=== PATIENT | female | born 1935 | race Caucasian/White ===

== ENCOUNTER → 2018-08-06 09:02 | Outpatient (CLI) | payer MEDICARE, SELFPAY ==
[2018-08-06 11:15] LABS: Occult Blood,Stool Negative (Negative)
[2018-08-08 07:02] LABS: C difficile Toxins AB, EIA Negative (Negative)
== END ==
PROVIDERS: PCP Internal Medicine; Visit Provider Internal Medicine
DX: R19.7 Diarrhea, unspecified (principal)
CPT/HCPCS: 82272; 87045; 87177; 87205; 87324; G0328

== ENCOUNTER → 2019-02-16 10:54 | Outpatient (CLI) | payer MEDICARE, SELFPAY ==
--- NOTE | 2019-02-16 11:00 | CA_ITS ---
APPROVED REPORT Right Lower Extremity Venous Study for DVT. Vascular Nurse: June Nguyen RVT Indications Lower Extremity Pain: Right Vein Imaging CFV (R): compressive, spontaneous, phasic, augmentation FEM (R): compressive, spontaneous, phasic, augmentation POP (R): compressive, spontaneous, phasic, augmentation PTV (R): Compressible GSV (R): Compressible Peroneals (R):Compressible GAS (R): Compressible Findings Study suggests no evidence of DVT right lower extremity. Study suggests no evidence of SVT right lower extremity. Conclusion Study suggests no evidence of DVT right lower extremity. Study suggests no evidence of SVT right lower extremity. Critical Notification Physician Notified Date: 02/16/2019 Time: 11:26 Physician Name: Dr Lacey Electronically signed by : Bacilio Rachel MD 02/18/2019 14:12:41
--- NOTE | 2019-02-16 11:50 | XR_ITS ---
PROCEDURE: XR LUMBAR SPINE MIN 4V CLINICAL INDICATION: LUMBAGO W/RT SCIATICA Low back with right-sided sciatica COMPARISON: LS5 LUMBAR SPINE 5 VIEWS from 10/30/2016 FINDINGS: There is mild lumbar scoliosis convex. This measures 16 degrees previously measuring 14 degrees. There is mild degenerative disc disease at from L2-S1 worse at the L4-5 level. There is mild anterolisthesis of L4 of approximately mm. No acute fracture or dislocation. No lytic or blastic change. Generalized vascular calcification is present IMPRESSION: Scoliosis with multilevel lumbar spondylosis. The degenerative disc disease at L4-5 appears slightly worse. Dictated by: Bacilio Rachel MD 02/16/2019 13:05 Electronically signed by Bcailio Rachel MD in [place] 02/16/2019 13:05
== END ==
PROVIDERS: PCP Internal Medicine; Visit Provider Internal Medicine
DX: M79.604 Pain in right leg (principal); M54.41 Lumbago with sciatica, right side
CPT/HCPCS: 72110; 93971

== ENCOUNTER 2019-02-23 08:44 | Outpatient (RCR) | payer MEDICARE, SELFPAY ==
--- NOTE | 2019-02-23 09:43 | HMH.PTOPEV ---
PT Outpatient Evaluation Rehab PT Outpatient Evaluation Start: 02/23/19 08:55 Freq: Status: Active Protocol: Document 02/23/19 09:00 ROSSYBIANCA (Rec: 02/23/19 09:43 AMILCARVALERIE [id number]) Electronically Signed By Petros Raymond PT 02/23/19 09:00 Outpatient Therapy Subjective History Subjective History This is the initial Physical Therapy evaluation for Denise Dent. Pt is an 83 y/o female referred to PT for c/o R sided Leg and Low back pain. Pt reports pain began insidiously ~ 5 weeks ago. Pt thinks maybe pulling and assisting irritated her back. Pt reprots that pain has gradually increased over the last few weeks. Pt reports her pain is in R calf mostly but does have a few occaisions of whole posterior leg pain. Pt rperots she is diabetic and last A1C ~ 2 months ago was 7.8 Chief Complaint Pain,Stiff Symptom Type Ache,Throb,Dull,Stabbing, Burning Symptoms Relieved By Rest/Positioning Symptoms Aggravated By Standing,Physical Activity, Walking Prior Functional Limitations None Current Functional Limitations Housework,Standing,Recreation Activity,Walking Symptom Description Intermittent Level of pain today (0-10) 0 Pain scale - at its best (0-10) 0 Pain scale - at its worst (0-10) 9 Lumbopelvic Eval Posture Thoracic Spine Posture Standing Position Increased Kyphosis Lumbar Spine Posture Standing Position Flattened Assistive device Assistive Devices None / NA Range of Motion Lumbar Spine ROM Reason Not Measured Within Functional Limits DTR Rt Patellar 0 Lt Patellar 0 Special Tests Forward Bending Test- Sitting Positive Right Sciatic Nerve Tension Test Negative Right Unilateral Straight Leg Raise (Lasegue) Negative Right Test Lumbar [place] Distraction Test/Manual Negative Traction Outpatient Therapy Assessment Impairments Problems/Impairmments Impaired Walking,Impaired Standing,Impaired Household Care,Impaired Recreational Activities,Subjective C/O Pain ,Impaired Self Care/Self
== END 2019-02-23 08:50 | disposition home or self-care (01) ==
LOC: PT 08:44
PROVIDERS: PCP Internal Medicine; Visit Provider Internal Medicine
DX: M54.41 Lumbago with sciatica, right side (principal)
CPT/HCPCS: 97163

== ENCOUNTER 2020-05-08 16:07 | Emergency (ER) | payer MEDICARE, SELFPAY ==
[2020-05-08 16:24] LABS: Apearance,Urine Cloudy (Clear); Color,Urine Amber (Yellow)
[2020-05-08 16:25] LABS: PH,Urine 5.5 (5.0-8.5); Protein,Urine 3+ (Negative); Specific Gravity, Urine 1.015 (1.005-1.030)
[2020-05-08 16:26] LABS: Glucose,Urine (UA) 4+ (Negative); Ketones,Urine Negative (Negative)
[2020-05-08 16:27] LABS: Bilirubin,Urine 1+ (Negative); Blood, Urine 3+ (Negative); UTC Leukocyte Esterase,Urine 1+ (Negative); UTC Nitrate,Urine Negative (Negative); Urobilinogen,Urine 0.2 EU/dl (0.2)
[2020-05-08 16:31] VITALS: BP 169/83; PULSE 88; RESP 16; TEMP 36.6; O2SAT 92; BMI 22.9
[2020-05-08 16:43] LABS: POC Glucose,Bedside 238 (70-110)
--- NOTE | 2020-05-08 16:56 | HMH.EDUTC ---
[facility] Clinical Impression: UTI (urinary tract infection) Qualifiers: Urinary tract infection type: site unspecified Hematuria presence: with hematuria Qualified Code(s): N39.0 - Urinary tract infection, site not specified Disposition: Home, Self-Care Condition on Discharge: Good Instructions: Urinary Tract Infection Additional Instructions: Drink plenty of fluids. Take tylenol for pain or fever. Take the medications as directed. Follow up with your regular doctor. GO TO THE ER FOR ANY WORSENING SYMPTOMS The pyridium will make your urine turn orange, this is an expected side effect. It will stain your clothes if it comes into contact with them. Prescriptions: Sulfamethoxazole/Trimethoprim [Bactrim DS tablet] 1 each PO BID 7 Days #14 tab Transmission Status: Received by [facility] Fluconazole [Diflucan 150mg tab] 150 mg PO ONCE #1 tab Transmission Status: Received by [facility] Phenazopyridine HCl [Pyridium 200mg Tablet] 200 pow PO TID #6 tab Transmission Status: Received by [facility] Referrals: Ricky Lacey [Primary Care Provider] - Time of Disposition: 17:11 Medical Decision Making - Medical Records Medical records reviewed: No: I reviewed the patient's medical records. - Yefri Inquiry Pt receiving controlled substance: No Vital Signs: 05/08/20 16:31 05/08/20 17:18 Temperature 97.9 F 98.1 F Temperature Source Tympanic Pulse Rate 82 Pulse Rate [Right] 88 Respiratory Rate 16 16 Blood Pressure 154/80 H Blood Pressure [Right Arm] 169/83 H Blood Pressure Mean [Right Arm] 111 Blood Pressure Source [Right Arm] Automatic Cuff Blood Pressure Position [Right Arm] Sitting 02 Sat by Pulse Oximetry 92 L Oxygen Delivery Method Room Air - Lab Data Lab results reviewed: Yes: I reviewed the patient's lab results. Lab Results 05/08/20 16:21: Urine Color Tessie, Urine Appearance Cloudy, Urine pH 5.5, Ur Specific [place] 1.015, Urine Protein 3+, Urine Glucose (UA) 4+, Urine Ketones Negative, Urine Blood 3+, Urine Nitrate Negative, Urine Bilirubin 1+ A, Urine Urobilinogen 0.2, Ur Leukocyte Esterase 1+ A 05/08/20 16:32: POC Glucose 238 H Orders (Tests/Meds): ED MEDICATIONS Discontinued Medications Generic Name Dose Route Start Last Admin Trade Name Beryl PRN Reason Stop Dose Admin Trimethoprim/Sulfamethoxazole 1 each 05/08/20 17:11 05/08/20 17:13 Sulfa/Trimethoprim 1 Tablet PO 05/08/20 17:12 1 each ONCE ONE Administration Protocol ORDERS Category Date Time Status Urine Culture Routine Micro 05/08/20 16:20 [place] [facility] [place] - General Stated complaint: UTI Time Seen by Provider: 05/08/20 16:56 Mode of Arrival: Ambulatory Source of Information: Patient Limitations: No Limitations Description of Symptoms (Recalled from Triage Doc. by RN): pt states she is having burning with urination, pain and bleeding vaginally. HEENT Symptoms (Recalled from RN notes): No Resp Symptoms (Recalled from RN notes): No Skin Symptoms (Recalled from RN notes): No MS Symptoms (Recalled from RN notes): No Functional Status (Recalled from RN notes): na - History of Present Illness Provider Complaint: She states that for the past 2 days she has been having urinary frequency and dysuria. She has also noted some bleeding when she urinates. She is not sure if the bleeding is vaginal or urinary, but she has only noticed it when she was urinating. - Related Data Previous Rx's Medication Instructions Recorded Fluconazole [Diflucan 150mg tab] 150 mg PO ONCE #1 tab 05/08/20 Phenazopyridine HCl [Pyridium 200 pow PO TID #6 tab 05/08/20 200mg Tablet] Sulfamethoxazole/Trimethoprim 1 each PO BID 7 Days #14 tab 05/08/20 [Bactrim DS tablet] Allergies Allergy/AdvReac Type Severity Reaction Status Date / Time Penicillins Allergy Unknown Verified 05/08/20 16:35 propoxyphene Allergy Unknown Verified
[2020-05-08 17:18] VITALS: BP 154/80; PULSE 82; RESP 16; TEMP 36.7
== END 2020-05-08 17:19 | disposition home or self-care (01) ==
PROVIDERS: Emergency Provider Nurse Practitioner Family; PCP Internal Medicine
DX: N30.00 Acute cystitis without hematuria (principal); E11.9 Type 2 diabetes mellitus without complications; Z88.0 Allergy status to penicillin
CPT/HCPCS: G0463; 81003; 82962; 87086; 99202

== ENCOUNTER → 2020-12-09 10:01 | Outpatient (CLI) | payer MEDICARE, SELFPAY ==
[2020-12-09 11:09] LABS: Hemoglobin A1C 8.5 % (4.0-6.0)
== END ==
PROVIDERS: Visit Provider Internal Medicine
DX: E11.42 Type 2 diabetes mellitus with diabetic polyneuropathy (principal)
CPT/HCPCS: 36415; 83036

== ENCOUNTER → 2021-01-09 13:28 | Outpatient (CLI) | payer MEDICARE, SELFPAY ==
[2021-01-09 13:57] LABS: Basophils # 0.1 K/mm3 (0-0.2); Basophils % 1.4 % (0.1-2.0); Eosinophils # 0.3 K/mm3 (0.0-0.4); Eosinophils % 3.7 % (0.1-12.0); Hematocrit 49.7 % (37.0-47.0); Hemoglobin 15.7 g/dL (12.2-16.2); Lymphocytes # 2.5 K/mm3 (0.7-4.5); Lymphocytes % 33.9 % (10-50); Mean Corpuscular HGB Conc 31.6 g/dL (31.8-35.4); Mean Corpuscular Hemoglobin 32.4 pg (27.0-31.2); Mean Corpuscular Volume 102.6 fl (81-99); Mean Platelet Volume 7.3 fl (7.4-10.4); Monocytes # 0.5 K/mm3 (0.1-1.0); Monocytes % 6.2 % (1.7-9.3); Neutrophils # 4.1 K/mm3 (1.8-7.8); Neutrophils % 54.7 % (37.0-80.0); Platelet Count 350 K/mm3 (142-424); Red Blood Count 4.84 M/mm3 (4.20-5.40); Red Cell Distribution Width 12.4 % (11.5-17.5); White Blood Count 7.5 K/mm3 (4.8-10.8)
[2021-01-09 14:49] LABS: Alanine Aminotransferase 19 U/L (12-78); Albumin Level 3.8 g/dl (3.5-5.0); Albumin/Globulin Ratio 1.6 (1.1-1.8); Alkaline Phosphatase 94 U/L (38-126); Anion Gap 14.5 mEq/L (5-15); Aspartate Amino Transferase 23 U/L (14-36); Bilirubin,Total 0.5 mg/dl (0.2-1.3); Blood Urea Nitrogen 13 mg/dl (7-17); Calcium 9.6 mg/dl (8.4-10.2); Carbon Dioxide 29 mmol/L (22.0-30.0); Chloride 91 mmol/L (98-107); Estimated Glomerular Filt Rate 80 ml/min (>60); GFR (African American) 97 ML/MIN (>60); Globulin 2.4 g/dL (1.3-3.2); Potassium 4.5 mmoL/L (3.5-5.1); Sodium 130 mmol/L (136-145); Total Protein,Serum 6.2 g/dl (6.3-8.2)
[2021-01-09 15:20] LABS: Thyroid Stimulating Hormone 2.39 uIU/mL (0.465-4.68)
[2021-01-09 15:29] LABS: Glucose 418 mg/dl (74-100)
[2021-01-09 15:55] LABS: Vitamin B12 363 pg/mL (239-931)
[2021-01-09 17:10] LABS: Folate > 20.00 ng/mL
[2021-01-09 17:20] LABS: Ferritin 209 ng/ml (11.1-264)
== END ==
PROVIDERS: Visit Provider Nurse Practitioner Family
DX: R25.2 Cramp and spasm (principal); R41.3 Other amnesia; R42 Dizziness and giddiness; W19.XXXA Unspecified fall, initial encounter; E83.10 Disorder of iron metabolism, unspecified
CPT/HCPCS: 36415; 80053; 82607; 82728; 82746; 84443; 85025

== ENCOUNTER 2021-01-09 18:40 | Emergency (ER) | payer MEDICARE, SELFPAY ==
[2021-01-09 19:04] VITALS: BP 158/58; PULSE 111; RESP 18; TEMP 37.2; O2SAT 99; BMI 20.5
[2021-01-09 19:30] VITALS: BP 136/66; PULSE 108; O2SAT 97
[2021-01-09 19:33] LABS: POC Glucose,Bedside 234 (70-110)
[2021-01-09 20:00] VITALS: BP 144/60; PULSE 70; O2SAT 96
[2021-01-09 20:23] VITALS: BP 144/60; PULSE 73; RESP 16; TEMP 36.8; O2SAT 99
--- NOTE | 2021-01-26 11:04 | HMH.EDGENADL ---
ED Disposition Clinical Impression: Hyperglycemia Disposition: Home, Self-Care Condition on Discharge: Good Instructions: DI for Hyperglycemia -- Adult Referrals: Lida Pack [Primary Care Provider] - - Critical Care Critical Care Time: No Attestation: On 01/09/21, the high probability of a clinically significant, sudden or life threatening deterioration of the following system(s) required my full and direct attention, intervention and personal management. The time I documented below is in addition to time spent performing reported procedures but includes the following listed in this critical care notation. Medical Decision Making - Medical Records Medical records reviewed: Yes: I reviewed the patient's medical records. - Yefri Inquiry Pt receiving controlled substance: No Vital Signs: 01/09/21 19:04 01/09/21 19:30 01/09/21 20:00 Temperature 98.9 F Temperature Source Oral Pulse Rate 108 H 70 Pulse Rate [Apical] 111 H Respiratory Rate 18 Blood Pressure 136/66 144/60 H Blood Pressure [Right Arm] 158/58 H Blood Pressure Mean 89 88 Blood Pressure Mean [Right Arm] 91 Blood Pressure Source Blood Pressure Source [Right Arm] Automatic Cuff Blood Pressure Position Blood Pressure Position [Right Arm] Sitting 02 Sat by Pulse Oximetry 99 97 96 Oxygen Delivery Method Room Air 01/09/21 20:23 Temperature 98.3 F Temperature Source Oral Pulse Rate 73 Pulse Rate [Apical] Respiratory Rate 16 Blood Pressure 144/60 H Blood Pressure [Right Arm] Blood Pressure Mean Blood Pressure Mean [Right Arm] Blood Pressure Source Automatic Cuff Blood Pressure Source [Right Arm] Blood Pressure Position Supine Blood Pressure Position [Right Arm] 02 Sat by Pulse Oximetry Oxygen Delivery Method Room Air - Lab Data Lab Results 01/09/21 19:26: POC Glucose 234 H Medical Decision Narrative: 85-year-old female who was referred here from neurology clinic due to hyponatremia. Patient labs were reviewed, while patient is hyperglycemic, and warrants tighter control for her diabetes, as evidenced by her HbA1c, patient hyponatremia on the lab draw is consistent with normal levels after correction due to the hyperglycemia. She does not have any acute symptoms at this time. Was discussed with the patient and she was discharged in a stable condition with instruction to follow-up with her PCP regarding her diabetic management. General Adult HPI - General Chief complaint: Recheck/Abnormal Lab/Rx Stated complaint: unstable labs Time Seen by Provider: 01/09/21 19:45 Mode of Arrival: Ambulatory Limitations: No Limitations Description of Symptoms (Recalled from ER Triage Doc. by RN): patient went to pcp today to follow up for bilateral leg cramps that she has been experiencing. States that they stalin labs and her daughter called her this evening and told her that her labs were abnormal and to get ready to go to the emergency room. Patient states that she is not having any complaints. No pain or issues. States she feels fine. - History of Present Illness HPI narrative: She is a 85-year-old female who presented to the emergency department due to hyperglycemia as well as hyponatremia seen by her neurologist today and I called her back regarding results due to concern for her low sodium levels. Patient is well-appearing, states that she feels perfectly fine. She does have chronic bilateral lower extremity neuropathy and muscle aching for which she was seeing the neurologist for. She is currently denying headache, chest pain, shortness of air, stomachaches, nausea, vomiting, any changes in symptoms. - Related Data Home Medications Medication Instructions Recorded Confirmed ascorbic acid (vitamin C) 500 mg See Rx Instructions PO .COMPLEX 01/09/21 01/09/21 capsule calcium carbonate 215 mg calcium 215 mg PO DAILY tab 01/09/21 01/09/21 (500 mg) chewable tablet cholecalciferol (vitam
== END 2021-01-09 20:23 | disposition home or self-care (01) ==
PROVIDERS: Emergency Provider Emergency Medicine; PCP Family Medicine
DX: E11.65 Type 2 diabetes mellitus with hyperglycemia (principal); Z79.4 Long term (current) use of insulin; Z79.84 Long term (current) use of oral hypoglycemic drugs; E87.1 Hypo-osmolality and hyponatremia
CPT/HCPCS: 36415; 80053; 82607; 82728; 82746; 82962; 84443; 85025; 99281

== ENCOUNTER → 2021-01-27 17:02 | Outpatient (CLI) | payer MEDICARE, SELFPAY ==
--- NOTE | 2021-01-27 17:02 | MR_ITS ---
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 FINDINGS: No midline shift, mass effect, intracranial hemorrhage, or hydrocephalus is evident. The cerebellopontine angles an unremarkable appearance. There is a 7 mm area of increased T2 signal in the medial aspect the right cerebellum superiorly. This shows increased T2 signal centrally with a small peripheral rim of decreased T2 signal. This does not demonstrate restricted diffusion and shows central decreased T1 signal. This may represent a small old infarction or an old area of hemorrhage. There is no surrounding edema. There is generalized atrophy with periventricular and subcortical T2 white matter hyperintensities. No acute infarction evident. The pituitary, optic chiasm, corpus callosum, and craniocervical junction have an unremarkable appearance. No mastoid effusion or sinus air-fluid level. IMPRESSION: 1. Right superior cerebellar lesion as described above. This may represent an old small area of infarction or old area of hemorrhage. There is no mass effect or edema. Differential diagnosis would include a lesion such as a metastatic focus. Follow-up enhanced exam is suggested unless there are old exams available for comparison. There are no old exams available at this institution. If follow-up exam is performed, suggest thinner section images through this region without and with gadolinium enhancement. 2. Atrophy with chronic ischemic changes. Dictated by: Bacilio Rachel MD 01/28/2021 08:15 Bacilio Rachel MD in [place] 01/28/2021 08:15
== END ==
PROVIDERS: PCP Internal Medicine; Visit Provider Nurse Practitioner Family
DX: R25.2 Cramp and spasm (principal); R41.3 Other amnesia; R42 Dizziness and giddiness; W19.XXXA Unspecified fall, initial encounter
CPT/HCPCS: 70551

== ENCOUNTER → 2021-02-08 07:48 | Outpatient (CLI) | payer MEDICARE, SELFPAY ==
[2021-02-08 08:15] LABS: Anion Gap 13.1 mEq/L (5-15); Blood Urea Nitrogen 13 mg/dl (7-17); Calcium 9.2 mg/dl (8.4-10.2); Carbon Dioxide 29 mmol/L (22.0-30.0); Chloride 89 mmol/L (98-107); Creatine Kinase 25 U/L (30-135); Estimated Glomerular Filt Rate 80 ml/min (>60); GFR (African American) 97 ML/MIN (>60); Potassium 4.1 mmoL/L (3.5-5.1); Sodium 127 mmol/L (136-145)
--- NOTE | 2021-02-08 08:35 | MR_ITS ---
PROCEDURE: MR LUMBAR SPINE WO CON CLINICAL INDICATION: back pain with radiculopathy, eval for myelopathy COMPARISON: CR XR LUMBAR SPINE MIN 4V from 02/16/2019 MR MR HEAD/BRAIN WO/W CON from 02/08/2021 TECHNIQUE: Standard multiplanar multiecho sequences are performed without contrast. 3-D MIP and myelographic images are also rendered and reviewed FINDINGS: There is lumbar scoliosis convex right. This measures approximately 21 degrees. Multilevel lumbar spondylosis. L1-L2: Mild concentric bulging disc with facet and ligamentum hypertrophy with mild left lateral recess narrowing. L2-L3: Degenerative disc disease with concentric bulging disc with facet and ligamentum hypertrophic change. The facet hypertrophy is more prominent on the left causing left-sided lateral recess narrowing slightly displacing the left L3 nerve root anteriorly and abutting on the L4 nerve root is well. There is mild left-sided foraminal narrowing. L3-L4: Mild concentric bulging disc with mild facet and ligamentum hypertrophy with mild left-sided foraminal narrowing. L4-5: Degenerative disc disease with concentric bulging disc with facet and ligamentum hypertrophic change. 3 mm anterolisthesis of L4 on L5. There is moderate bilateral lateral recess narrowing slightly greater on the right with moderate right foraminal narrowing and mild left foraminal narrowing. Minimal left paracentral disc protrusion. L5-S1: Mild concentric bulging disc with facet and ligamentum hypertrophic change with mild right-sided foraminal narrowing. There is heterogeneous intensity of the vertebral bodies suggesting partial red marrow replacement. Small lipoma is present along the superior aspect of L1. IMPRESSION: Lumbar scoliosis convex right with multilevel lumbar spondylosis with bulging discs, facet and ligamentum hypertrophy with lateral recess and foraminal narrowing. Please see above for detailed description at each level. No extruded herniated disc or bony canal stenosis. Dictated by: Bacilio Rachel MD 02/09/2021 13:17 Bacilio Rachel MD in [place] 02/09/2021 13:17
--- NOTE | 2021-02-08 08:35 | MR_ITS ---
PROCEDURE: MR HEAD/BRAIN WO/W CON CLINICAL INDICATION: abnormal brain mri without Evaluate brain lesion COMPARISON: MR MR HEAD/BRAIN WO CON from 01/27/2021 TECHNIQUE: Routine multiplanar multi echo sequences are performed without gadolinium enhancement. FINDINGS: Pre and post images are obtained with thin-section images through the cerebellum. There is a prominent developmental venous anomaly within the right cerebellar hemisphere. The pre and post enhanced coronal images very well demonstrate a caput medusa sign in the mid and superior aspect of the right cerebellar hemisphere with up prominent draining vein projecting inferiorly to the inferior surface of the right cerebellum medially. This vein measures up to 3 mm transverse and 1.7 cm in length. The previously noted abnormal area of signal intensity is not within the DVA but is along the superior and medial aspect of the small venous branches. This area does not demonstrate contrast enhancement. This region measures approximately 8 x 8 mm with a peripheral rim of decreased T1 and T2 signal. The central area is isointense on T1 and slightly hyperintense on T2. This may represent a previous area of hemorrhage with hemosiderin causing the low thin peripheral T2 signal. Aside from the DVA, no other areas of enhancement are apparent. Scattered periventricular and subcortical T2 white matter hyperintensities are present consistent with ischemic gliotic microvascular changes. No evidence of acute infarction. No midline shift or mass effect. IMPRESSION: 1. Prominent right cerebellar developmental venous anomaly. 2. Abnormal signal intensity along the superior and medial aspect of the small draining veins consistent with an old area of hemorrhage Dictated by: Bacilio Rachel MD 02/10/2021 08:50 Bacilio Rachel MD in [place] 02/10/2021 08:50
[2021-02-08 09:06] LABS: Glucose 425 mg/dl (74-100)
[2021-02-09 13:11] LABS: Aldolase 2.7 U/L (3.3-10.3)
== END ==
PROVIDERS: PCP Internal Medicine; Visit Provider Nurse Practitioner Family
DX: E87.1 Hypo-osmolality and hyponatremia (principal); G89.29 Other chronic pain; M54.41 Lumbago with sciatica, right side; M54.42 Lumbago with sciatica, left side; M79.604 Pain in right leg; M79.605 Pain in left leg; R25.2 Cramp and spasm; R41.3 Other amnesia; R42 Dizziness and giddiness; R90.89 Other abnormal findings on diagnostic imaging of central nervous system; W19.XXXA Unspecified fall, initial encounter
CPT/HCPCS: 36415; 70553; 72148; 76376; 80048; 82085; 82550; A9576

== ENCOUNTER 2021-02-25 09:19 | Emergency (ER) | payer MEDICARE, SELFPAY ==
[2021-02-25 09:40] VITALS: BP 149/61; PULSE 70; RESP 18; TEMP 36.9; O2SAT 98; BMI 21.1
--- NOTE | 2021-02-25 09:58 | HMH.EDUTC ---
[facility] [place] Impression: UTI (urinary tract infection) Qualifiers: Urinary tract infection type: site unspecified Hematuria presence: with hematuria Qualified Code(s): N39.0 - Urinary tract infection, site not specified Disposition: Home, Self-Care Condition on Discharge: Good Instructions: Urinary Tract Infection, DI for Urinary Tract Infection (UTI), Phenazopyridine Additional Instructions: Drink plenty of fluids. Take tylenol or ibuprofen for pain or fever. Take the medications as directed. Follow up with your regular doctor. GO TO THE ER FOR ANY WORSENING SYMPTOMS The pyridium will make your urine turn orange, this is an expected side effect. It will stain your clothes if it comes into contact with them. Prescriptions: Sulfamethoxazole/Trimethoprim [Bactrim DS tablet] 1 each PO BID 7 Days #14 tab Transmission Status: Sent to [id number] Phenazopyridine HCl [Pyridium 200mg Tablet] 200 pow PO TID #6 tab Transmission Status: Sent to [facility] Referrals: Ricky Lacey [Primary Care Provider] - Time of Disposition: 10:07 Medical Decision Making - Medical Records Medical records reviewed: No: I reviewed the patient's medical records. - Yefri Inquiry Pt receiving controlled substance: No Vital Signs: 02/25/21 09:40 Temperature 98.4 F Temperature Source Oral Pulse Rate [Left] 70 Respiratory Rate 18 Blood Pressure [Right Arm] 149/61 H Blood Pressure Mean [Right Arm] 90 02 Sat by Pulse Oximetry 98 - Lab Data Lab results reviewed: Yes: I reviewed the patient's lab results. Lab Results 02/25/21 10:01: Urine Color Dark yellow, Urine Appearance Cloudy, Urine pH 5.5, Ur Specific [place] 1.015, Urine Protein 1+, Urine Glucose (UA) 4+, Urine Ketones Large, Urine Blood 4+, Urine Nitrate Negative, Urine Bilirubin Negative, Urine Urobilinogen 0.2, Ur Leukocyte Esterase Trace Orders (Tests/Meds): ORDERS Category Date Time Status Urine Culture Stat Micro 02/25/21 10:01 [place] [facility] - General Stated complaint: uti symptoms Time Seen by Provider: 02/25/21 09:58 Mode of Arrival: Ambulatory Source of Information: Patient Limitations: No Limitations HEENT Symptoms (Recalled from RN notes): No Resp Symptoms (Recalled from RN notes): No Skin Symptoms (Recalled from RN notes): No MS Symptoms (Recalled from RN notes): No Functional Status (Recalled from RN notes): wnl - History of Present Illness Provider Complaint: She states that since yesterday at 0400 am, she has had urinary frequency and dysuria. She denies any fever or chills. She has no shortness of breath or chest discomfort. - Related Data Home Medications Medication Instructions Recorded Confirmed ascorbic acid (vitamin C) 500 mg See Rx Instructions PO .COMPLEX 01/09/21 01/30/21 capsule calcium carbonate 215 mg calcium 215 mg PO DAILY tab 01/09/21 01/30/21 (500 mg) chewable tablet cholecalciferol (vitamin D3) 25 25 mcg PO DAILY 01/09/21 01/30/21 mcg (1,000 unit) capsule empagliflozin 10 mg tablet 5 mg PO DAILY tab 01/09/21 01/30/21 famotidine 20 mg tablet 20 mg PO HS tab 01/09/21 01/30/21 ferrous sulfate 325 mg (65 mg 325 mg PO BID 01/09/21 01/30/21 iron) tablet loperamide 2 mg capsule 2 mg PO PRN cap 01/09/21 01/30/21 metformin 1,000 mg tablet 1,000 mg PO BID tab 01/09/21 01/30/21 multivitamin 1 tab PO DAILY 01/09/21 01/30/21 pioglitazone 15 mg tablet 15 mg PO DAILY tab 01/09/21 01/30/21 pravastatin 40 mg tablet 40 mg PO HS tab 01/09/21 01/30/21 trazodone 50 mg tablet 50 mg PO HS tab 01/09/21 01/30/21 gabapentin 300 mg capsule 600 mg PO HS cap 01/30/21 01/30/21 insulin glargine 100 unit/mL (3 10 unit SQ DAILY ml 01/30/21 01/30/21 mL) subcutaneous pen lisinopril 20 mg tablet 20 mg PO DAILY 01/30/21 01/30/21 Previous Rx's Medication Instructions Recorded Fluconazole [Diflucan 150mg tab] 150 mg PO ONCE #1 tab 05/08/20 Phenazopyridine HCl [Pyrid
[2021-02-25 10:02] LABS: Apearance,Urine Cloudy (Clear); Color,Urine Dark Yellow (Yellow); PH,Urine 5.5 (5.0-8.5); Protein,Urine 1+ (Negative); Specific Gravity, Urine 1.015 (1.005-1.030)
[2021-02-25 10:03] LABS: Bilirubin,Urine Negative (Negative); Blood, Urine 4+ (Negative); Glucose,Urine (UA) 4+ (Negative); Ketones,Urine Large (Negative); UTC Leukocyte Esterase,Urine Trace (Negative); UTC Nitrate,Urine Negative (Negative); Urobilinogen,Urine 0.2 EU/dl (0.2)
[2021-02-25 10:09] VITALS: BP 149/61; PULSE 70; RESP 18; TEMP 36.9
== END 2021-02-25 10:21 | disposition home or self-care (01) ==
PROVIDERS: Emergency Provider Nurse Practitioner Family; PCP Internal Medicine
DX: N30.00 Acute cystitis without hematuria (principal); E11.9 Type 2 diabetes mellitus without complications; Z88.0 Allergy status to penicillin
CPT/HCPCS: G0463; 81003; 87086; 87088; 87186; 99202

== ENCOUNTER → 2021-02-28 09:56 | Outpatient (POV) | payer MEDICARE, SELFPAY ==
[2021-02-28 10:32] VITALS: BP 166/86; PULSE 69; RESP 18; O2SAT 96; BMI 21.1
--- NOTE | 2021-02-28 10:38 | HMH.PMCON ---
Assessment and Plan (1) Degenerative disc disease, lumbar Status: Acute Category: Medical Code(s): M51.36 - Other intervertebral disc degeneration, lumbar region (2) Lumbar radiculopathy Status: Acute Category: Medical Code(s): M54.16 - Radiculopathy, lumbar region (3) Facet arthropathy Status: Acute Category: Medical Code(s): M47.819 - Spondylosis without myelopathy or radiculopathy, site unspecified (4) Bulging disc Status: Acute Category: Medical - Assessment and plan all Dx Assessment and Plan for all problems:: PROCEDURE: MR LUMBAR SPINE WO CON CLINICAL INDICATION: back pain with radiculopathy, eval for myelopathy COMPARISON: CR XR LUMBAR SPINE MIN 4V from 02/16/2019 MR MR HEAD/BRAIN WO/W CON from 02/08/2021 TECHNIQUE: Standard multiplanar multiecho sequences are performed without contrast. 3-D MIP and myelographic images are also rendered and reviewed FINDINGS: There is lumbar scoliosis convex right. This measures approximately 21 degrees. Multilevel lumbar spondylosis. L1-L2: Mild concentric bulging disc with facet and ligamentum hypertrophy with mild left lateral recess narrowing. L2-L3: Degenerative disc disease with concentric bulging disc with facet and ligamentum hypertrophic change. The facet hypertrophy is more prominent on the left causing left-sided lateral recess narrowing slightly displacing the left L3 nerve root anteriorly and abutting on the L4 nerve root is well. There is mild left-sided foraminal narrowing. L3-L4: Mild concentric bulging disc with mild facet and ligamentum hypertrophy with mild left-sided foraminal narrowing. L4-5: Degenerative disc disease with concentric bulging disc with facet and ligamentum hypertrophic change. 3 mm anterolisthesis of L4 on L5. There is moderate bilateral lateral recess narrowing slightly greater on the right with moderate right foraminal narrowing and mild left foraminal narrowing. Minimal left paracentral disc protrusion. L5-S1: Mild concentric bulging disc with facet and ligamentum hypertrophic change with mild right-sided foraminal narrowing. There is heterogeneous intensity of the vertebral bodies suggesting partial red marrow replacement. Small lipoma is present along the superior aspect of L1. IMPRESSION: Lumbar scoliosis convex right with multilevel lumbar spondylosis with bulging discs, facet and ligamentum hypertrophy with lateral recess and foraminal narrowing. Please see above for detailed description at each level. No extruded herniated disc or bony canal stenosis. Dictated by: Bacilio Rachel MD 02/09/2021 13:17 Bacilio Rachel MD in [place] 02/09/2021 13:17 Patient has been having worsening low back pain that started 6 months ago. Patient has now new radiating pain to her right hip, leg, and foot from her low back. Patient has tried and failed conservative therapy such as oral medication and at home exercises for greater than 6 weeks. We will schedule the patient for a lumbar epidural steroid injection at the level of L4-L5. Risks and benefits of the procedure have been explained to the patient. Patient is currently not on any blood thinners however she is diabetic and will need to have her sugar monitored after the procedure. Patient has been instructed to contact the clinic with any concerns before the next appointment. Dr. Baker has reviewed this note and agrees with this plan of care. This note was dictated using voice recognition software and make contain errors or omissions. HPI - Data of Consult Patient: new to practice Consult date: 02/28/21 Requesting Physician: Kalina Coffman APRN - Consult Narrative Reason for consult: Chronic Low Back Pain History of present illness: Ms. Dent is a 85 year old female who presents today as a new patient. Patient is referred by Kalina Coffman APRN for worsening low back pain. Patient states that she has had low back pain for greate
== END ==
PROVIDERS: Visit Provider Clinical Nurse Specialist Family Health
DX: M51.16 Intervertebral disc disorders with radiculopathy, lumbar region (principal); M47.899 Other spondylosis, site unspecified
CPT/HCPCS: 99202; G0463

== ENCOUNTER → 2021-03-07 14:21 | Outpatient (CLI) | payer MEDICARE, SELFPAY ==
[2021-03-07 14:46] LABS: Basophils # 0.1 K/mm3 (0-0.2); Basophils % 0.9 % (0.1-2.0); Eosinophils # 0.2 K/mm3 (0.0-0.4); Hematocrit 40.1 % (37.0-47.0); Hemoglobin 13.6 g/dL (12.2-16.2); Lymphocytes # 1.8 K/mm3 (0.7-4.5); Lymphocytes % 32.6 % (10-50); Mean Corpuscular HGB Conc 33.9 g/dL (31.8-35.4); Mean Corpuscular Hemoglobin 32.8 pg (27.0-31.2); Mean Corpuscular Volume 96.7 fl (81-99); Mean Platelet Volume 7.9 fl (7.4-10.4); Monocytes # 0.4 K/mm3 (0.1-1.0); Monocytes % 7.7 % (1.7-9.3); Neutrophils # 3.2 K/mm3 (1.8-7.8); Neutrophils % 55.8 % (37.0-80.0); Platelet Count 418 K/mm3 (142-424); Red Blood Count 4.15 M/mm3 (4.20-5.40); Red Cell Distribution Width 13.1 % (11.5-17.5); White Blood Count 5.6 K/mm3 (4.8-10.8)
[2021-03-07 15:57] LABS: Chloride 92 mmol/L (98-107); Potassium 4.7 mmoL/L (3.5-5.1); Sodium 130 mmol/L (136-145)
[2021-03-07 16:00] LABS: Alanine Aminotransferase 14 U/L (12-78); Albumin Level 4.3 g/dl (3.5-5.0); Alkaline Phosphatase 90 U/L (38-126); Anion Gap 14.7 mEq/L (5-15); Aspartate Amino Transferase 27 U/L (14-36); Bilirubin,Total 0.7 mg/dl (0.2-1.3); Carbon Dioxide 28 mmol/L (22.0-30.0); Cholesterol 157 mg/dl (140-200); Globulin 2.2 g/dL (1.3-3.2); Total Protein,Serum 6.5 g/dl (6.3-8.2); Triglycerides 130 mg/dl (30-150); VLDL Cholesterol 26 mg/dL (0-40)
[2021-03-07 16:01] LABS: Calcium 9.2 mg/dl (8.4-10.2); Chol/HDL Ratio 2.1 (1-3.5); Glucose 180 mg/dl (74-100); HDL Cholesterol 74 mg/dl (40-60)
[2021-03-07 16:05] LABS: Blood Urea Nitrogen 14 mg/dl (7-17); Estimated Glomerular Filt Rate 80 ml/min (>60); GFR (African American) 97 ML/MIN (>60)
[2021-03-07 16:12] LABS: Direct LDL Cholesterol 56.06 mg/dL (100-129)
== END ==
PROVIDERS: Visit Provider Internal Medicine
DX: E11.42 Type 2 diabetes mellitus with diabetic polyneuropathy (principal); I10 Essential (primary) hypertension; E78.5 Hyperlipidemia, unspecified; M15.0 Primary generalized (osteo)arthritis
CPT/HCPCS: 80053; 80061; 82043; 83036; 85025

== ENCOUNTER 2021-03-10 11:43 | Day surgery (SDC) | payer MEDICARE, SELFPAY ==
[2021-03-10 11:55] VITALS: BP 141/53; PULSE 67; RESP 18; TEMP 36.6; O2SAT 96; BMI 21.1
[2021-03-10 12:49] VITALS: BP 138/63; PULSE 68; RESP 18; O2SAT 96
[2021-03-10 12:52] VITALS: RESP 18; O2SAT 96
--- NOTE | 2021-03-10 12:53 | HMH.PMPROC ---
- Procedure Date: 03/10/21 Time: 12:53 Anesthesiologist:: Lizzie Kwan MD Complications:: None Pre-procedure Diagnosis:: Degenerative disc disease of the lumbar spine with lumbar radiculopathy Post-procedure Diagnosis:: Same Indications for Procedure:: This patient is a very pleasant 85-year-old white female who presents today with chronic low back pain rating into her legs related to the above diagnosis. She is trialed and failed conservative treatment including oral pain medications and home stretching program for greater than 6 weeks. She is currently taking gabapentin 300 mg 1 tablet p.o. 3 times daily but she states she only takes it once a day and this is prescribed by Dr. Lacey. She is also taking Tylenol as needed which she states helps somewhat temporarily relieve the pain. Plan for today is for the patient to undergo a lumbar epidural steroid injection under fluoroscopy at L5-S1 #1. Procedure Details:: Informed consent was obtained and the risk and benefits of the procedure was explained to the patient. The patient was taken to the procedure room. The patient was placed prone on the procedure table. The patient was prepped and draped in sterile fashion. C-arm fluoroscopy was used to view the lumbar spine. Skin and subcutaneous tissues were anesthetized using lidocaine. I placed an 18-gauge epidural needle and advanced into the L5-S1 interspace using fluoroscopic guidance and [id number] to air and saline. After confirmation of needle placement in the epidural space with dye I injected 1 mL of lidocaine 1.0% with Depo-Medrol 80 mg. Patient tolerated the procedure well with no complications. Plan and Disposition:: We will follow-up with this patient in 2 weeks. Will reevaluate pain symptoms at that time.
[2021-03-10 13:00] VITALS: BP 151/58; PULSE 67; RESP 20; O2SAT 97
== END 2021-03-10 13:00 | disposition home or self-care (01) ==
LOC: SC.PAINP 11:44
PROVIDERS: PCP Internal Medicine; Visit Provider Anesthesiology Pain Medicine
DX: M51.16 Intervertebral disc disorders with radiculopathy, lumbar region (principal); E11.9 Type 2 diabetes mellitus without complications; M19.90 Unspecified osteoarthritis, unspecified site; Z88.0 Allergy status to penicillin; Z79.84 Long term (current) use of oral hypoglycemic drugs; Z79.4 Long term (current) use of insulin; Z79.899 Other long term (current) drug therapy
CPT/HCPCS: 62323; J1040; Q9966

== ENCOUNTER 2021-03-23 15:53 | Emergency (ER) | payer MEDICARE, SELFPAY ==
[2021-03-23 16:42] VITALS: BP 143/75; PULSE 71; RESP 16; TEMP 37; O2SAT 96; BMI 20.7
[2021-03-23 17:02] LABS: Apearance,Urine Turbid (Clear); Color,Urine Yellow (Yellow); PH,Urine 5.5 (5.0-8.5); Protein,Urine Trace (Negative); Specific Gravity, Urine 1.015 (1.005-1.030)
--- NOTE | 2021-03-23 17:02 | HMH.EDUTC ---
[facility] [place] Clinical Impression: UTI (urinary tract infection) Qualifiers: Urinary tract infection type: site unspecified Hematuria presence: with hematuria Qualified Code(s): N39.0 - Urinary tract infection, site not specified Disposition: Home, Self-Care Condition on Discharge: Good Instructions: DI for Urinary Tract Infection (UTI), Urinary Tract Infection Additional Instructions: *Increase fluids. Water not Soda or Tea *Start antibiotic immediately and be sure to take as ordered for the FULL length of time although you should start to see improvement over the next 48 hours *Pyridium as needed Remember this medication will turn your urine Cecil. This is normal but it will stain what ever it gets on *You should not use Pyridium for more than 48 hours. If so , follow up with your primary physician to review urine culture and ensure that antibiotic is adequate for infection *Be SURE to follow up anytime for new or worsening symptoms with your family doctor. AND in 48 hours for urine culture results with your family doctor, if you do not have a doctor then you may call back to the [facility] for urine culture results and further treatment. We do recommend that you choose and establish care with a Primary Care Physician. AND follow up with them in 10-14 days to repeat UA to ensure infection is resolved and blood no longer present *Be sure to let your PCP know that we sent urine cultures from the [facility] so they can follow up to ensure that you area the on the correct antibiotic Call your doctor office and make appointment for 48 hours (2 days from today) to follow up and get the results of your urine culture and further treatment Prescriptions: Cefdinir [Omnicef 300mg Capsule] 300 mg PO BID 7 Days #14 cap Transmission Status: Pending to [id number] Phenazopyridine HCl [Pyridium 200mg Tablet] 200 pow PO TID #6 tab Transmission Status: Pending to [id number] Referrals: Ricky Lacey [Primary Care Provider] - As needed Time of Disposition: 17:25 Medical Decision Making - Yefri Inquiry Pt receiving controlled substance: No Yefri was queried for this patient: No Vital Signs: 03/23/21 16:42 Temperature 98.6 F Temperature Source Oral Pulse Rate [Left] 71 Respiratory Rate 16 Blood Pressure [Right Arm] 143/75 H Blood Pressure Mean [Right Arm] 97 02 Sat by Pulse Oximetry 96 - Lab Data Lab results reviewed: Yes: I reviewed the patient's lab results. Lab Results 03/23/21 16:45: Urine Color Yellow, Urine Appearance Turbid, Urine pH 5.5, Ur Specific [place] 1.015, Urine Protein Trace, Urine Glucose (UA) 4+, Urine Ketones Negative, Urine Blood 3+, Urine Nitrate Negative, Urine Bilirubin Negative, Urine Urobilinogen 0.2, Ur Leukocyte Esterase Trace Orders (Tests/Meds): ORDERS Category Date Time Status Urine Culture Stat Micro 03/23/21 16:33 Received Medical Decision Narrative: patient denies any allergies [facility] [place] - General Stated complaint: possible uti Time Seen by Provider: 03/23/21 17:02 Mode of Arrival: Ambulatory Source of Information: Patient Limitations: No Limitations Description of Symptoms (Recalled from Triage Doc. by RN): pt c/o burning with urination since 1400 HEENT Symptoms (Recalled from RN notes): No Resp Symptoms (Recalled from RN notes): No Skin Symptoms (Recalled from RN notes): No MS Symptoms (Recalled from RN notes): No Functional Status (Recalled from RN notes): wnl - History of Present Illness Provider Complaint: Patient states that she has been having burning with urination and feeling of urgency and frequency States that she felt like this before when she had a UTI and she wanted to get checked before it got too bad - Related Data Home Medications Medication Instructions Recorded Confirmed ascorbic acid (vitamin C) 500 mg See Rx Instructions PO .COMPLEX 01/09/21 03/10/21 capsule calcium carbonate 215 mg calcium 215 mg PO DAILY tab 01/09/2103/10
[2021-03-23 17:03] LABS: Bilirubin,Urine Negative (Negative); Blood, Urine 3+ (Negative); Glucose,Urine (UA) 4+ (Negative); Ketones,Urine Negative (Negative); UTC Leukocyte Esterase,Urine Trace (Negative); UTC Nitrate,Urine Negative (Negative); Urobilinogen,Urine 0.2 EU/dl (0.2)
[2021-03-23 17:27] VITALS: BP 143/75; PULSE 71; RESP 16; TEMP 37
== END 2021-03-23 17:36 | disposition home or self-care (01) ==
PROVIDERS: Emergency Provider Nurse Practitioner; PCP Internal Medicine
DX: N30.00 Acute cystitis without hematuria (principal); E11.9 Type 2 diabetes mellitus without complications; Z79.899 Other long term (current) drug therapy
CPT/HCPCS: G0463; 81003; 87086; 99202

== ENCOUNTER → 2021-04-03 15:04 | Outpatient (POV) | payer MEDICARE, SELFPAY ==
--- NOTE | 2021-04-03 15:24 | HMH.PAINSOAP ---
[facility] Pain Management SOAP Note Subjective:: Patient is a pleasant 85-year-old female who comes in here today for follow-up after a lumbar epidural steroid injection #1. Patient is currently being treated for degenerative disc disease of the lumbar spine with lumbar radiculopathy symptoms. After the procedure, patient says that she had 100% relief for about 3 weeks. She said that after 3 weeks, she started having some pain but it is significantly more tolerable than before. She rates her pain today as 0 out of 10. She denies any issues after her procedure. She is currently taking gabapentin 300 mg 3 times a day that is prescribed by Dr. Lacey. Her Yefri number is [id number] with an active morphine equivalent of 0. ORT score is 0, low risk. Drug screens have been reviewed and appropriate. Review of Systems General: No recent weight changes, no fever, no sleep disturbances Respiratory: No cough, no shortness of air, no recurring pulmonary infections Cardiovascular/peripheral vascular: No chest pain, no palpitations, no edema, no shortness of breath Gastrointestinal: No new onset incontinence, normal bowel movements reported Genitourinary: No new onset incontinence Musculoskeletal: Improving Low back pain Psychiatric: [Normal mood/affect] Neurological: [Denies weakness in extremities], [denies balance issues] Objective:: Physical exam General: Alert and oriented x3, no acute distress, pleasant and cooperative Lungs: Respirations even and unlabored, symmetrical chest expansion Eyes: PERRL Musculoskeletal: Flexion and extension of lumbar [spine] somewhat guarded secondary to pain, [antalgic gait noted] Neurological: Speech clear, no gross sensory deficit Assessment:: Degenerative disc disease of the lumbar spine with lumbar radiculopathy Plan:: Patient had 100% relief for 3 weeks after her lumbar epidural steroid injection #1. She said her pain is significantly more tolerable now. She will follow-up with us as needed. She can give our clinic a call if she needs another lumbar epidural steroid injection. Patient has been instructed to contact the clinic with any concerns before the next appointment. Dr. Baker has reviewed this note and agrees with this plan of care. This note was dictated using voice recognition software and make contain errors or omissions. [facility] History Medical History: Reports:: Diabetes Mellitus Type 2 Denies:: Cancer, MRSA, Seizures *Have you ever received a pneumonia vaccine?: No *Have you received a flu vaccine this season?: No Other Medical History: Reports: Arthritis Other Surgeries: Yes: Hysterectomy-Total Amputation: No Fractures: No - *Social History Smoking Status: Never smoker Alcohol Intake: never Substance Use Type: denies use *Occupational Status:: retired Housing: house Household Members: spouse *Travel in the last 8 weeks: Inside the [facility] Family Hx:: Diabetes, Heart Attack, Other
[2021-04-03 15:26] VITALS: BP 133/66; PULSE 110; RESP 18; O2SAT 99; BMI 20.7
== END ==
PROVIDERS: Visit Provider Clinical Nurse Specialist Family Health
DX: M51.16 Intervertebral disc disorders with radiculopathy, lumbar region (principal)
CPT/HCPCS: 99212; G0463

== ENCOUNTER → 2021-04-14 10:59 | Outpatient (CLI) | payer MEDICARE, SELFPAY | PROVIDERS: Visit Provider Nurse Practitioner | DX: Z20.822 Contact with and (suspected) exposure to COVID-19 (principal) | CPT/HCPCS: C9803; U0003; U0005 ==

== ENCOUNTER → 2021-05-12 11:03 | Outpatient (CLI) | payer MEDICARE, SELFPAY ==
--- NOTE | 2021-05-12 11:08 | CA_ITS ---
APPROVED REPORT EXAM: Comprehensive 2D, Doppler, and color-flow Echocardiogram [employer]: Danyell Levy RT(R) Ht: 5 ft 1 in Wt: 120lbs BSA: 1.52 BP: 130/90 mmHg Indications: LOZANO, CP, fatigue, edema, HTN, DM, hyperlipidemia 2D Dimensions LVOT 1.84 cm (M/F) 1.5-2.5 LA Volume 43.10 mL LA Volume Index 28.35 mL/m2 (M/F) 16-34 M-Mode Dimensions RVDd 1.47 cm (0.9-2.6) LA Diam 3.48 cm (1.9-4.0) LVDd 4.70 cm (3.5-5.7) Ao Diam 2.10 cm (2.0-3.7) LVDs 3.63 cm (3.5-5.7) IVSd 0.85 cm (0.6-1.1) PWd 0.75 cm (0.6-1.1) EF (Teich) 45.80% FS 22.80% EDV (Teich) 102.40 mL ESV (Teich) 55.50 mL LV Diastology E Decel Time 183.00 (160-240 msec) E/A Ratio 2.2 MED E' 9.50 (< 7 cm/sec) E'/MED E' Ratio 9.95 (>14) LAT E' 10.00 (<10 cm/sec) E/LAT E' Ratio 9.45 (>14) Mitral Valve MV E Max Bridger. 95.00 (40-130 cm/s) MV A Velocity 44.00 (40-130 cm/s) E/A Ratio 2.15 MV Decel. Time 183.00 (160-240 ms) MV PHT 54.00 ms Tricuspid Valve TR P. Velocity 232.00 cm/s RAP Estimate 10.00 mmHg RVSP 31.50 mmHg Left Ventricle Left atrium is mildly enlarged, left ventricle is normal size, mild concentric left ventricular hypertrophy, visually estimated ejection fraction 55% with no regional wall motion abnormality, grade 2 diastolic dysfunction seen without tissue Doppler evidence of raise left atrial pressure. Right Ventricle Right atrium and right ventricle are normal size and contractility. Aortic Valve Aortic valve is minimally thickened and fibrosed, there is no aortic stenosis or aortic insufficiency. Mitral Valve Mitral valve has mitral calcification, there is no mitral stenosis. There is trace mitral regurgitation. Tricuspid Valve Tricuspid valve grossly normal, there is trace tricuspid regurgitation. Calculated right ventricular systolic pressure is 32 mmHg. Pulmonic Valve Pulmonic valve is poorly visualized. Great Vessels Aortic root is normal size. Inferior vena cava is mildly dilated without significant inspiratory collapse. Pericardium Trivial pericardial effusion noted. Conclusion 1. Mildly enlarged left atrium, normal left ventricular size, mild concentric left ventricular hypertrophy, visually estimated ejection fraction 55% with no regional wall motion abnormality, grade 2 diastolic dysfunction seen without tissue Doppler evidence of raise left atrial pressure. 2. Trace mitral and tricuspid regurgitation, calculated right ventricular systolic pressure is 32 millimeters of mercury. 3. No significant pericardial effusion noted. 4. Inferior vena cava is mildly dilated without significant inspiratory collapse. Electronically signed by : Eric Britton MD 05/12/2021 14:34:18
== END ==
PROVIDERS: PCP Internal Medicine; Visit Provider Internal Medicine
DX: R06.09 Other forms of dyspnea (principal); E11.9 Type 2 diabetes mellitus without complications; I10 Essential (primary) hypertension; R60.9 Edema, unspecified; Z79.4 Long term (current) use of insulin
CPT/HCPCS: 93306

== ENCOUNTER → 2021-09-06 13:46 | Outpatient (CLI) | payer MEDICARE, SELFPAY ==
[2021-09-06 15:47] LABS: Hemoglobin A1C 7.4 % (4.0-6.0)
[2021-09-06 15:58] LABS: Alanine Aminotransferase 16 U/L (12-78); Albumin Level 4.1 g/dl (3.5-5.0); Albumin/Globulin Ratio 1.8 (1.1-1.8); Alkaline Phosphatase 87 U/L (38-126); Anion Gap 11.8 mEq/L (5-15); Aspartate Amino Transferase 26 U/L (14-36); Bilirubin,Total 0.4 mg/dl (0.2-1.3); Blood Urea Nitrogen 14 mg/dl (7-17); Calcium 9.4 mg/dl (8.4-10.2); Carbon Dioxide 31 mmol/L (22.0-30.0); Chloride 97 mmol/L (98-107); Chol/HDL Ratio 2.2 (1-3.5); Cholesterol 158 mg/dl (140-200); Estimated Glomerular Filt Rate 80 ml/min (>60); GFR (African American) 97 ML/MIN (>60); Globulin 2.3 g/dL (1.3-3.2); Glucose 61 mg/dl (74-100); HDL Cholesterol 71 mg/dl (40-60); Potassium 3.8 mmoL/L (3.5-5.1); Sodium 136 mmol/L (136-145); Total Protein,Serum 6.4 g/dl (6.3-8.2); Triglycerides 84 mg/dl (30-150); VLDL Cholesterol 17 mg/dL (0-40)
[2021-09-06 16:10] LABS: Direct LDL Cholesterol 57.22 mg/dL (100-129)
== END ==
PROVIDERS: PCP Internal Medicine; Visit Provider Internal Medicine
DX: E11.42 Type 2 diabetes mellitus with diabetic polyneuropathy (principal); I10 Essential (primary) hypertension; E78.5 Hyperlipidemia, unspecified; M15.0 Primary generalized (osteo)arthritis; Z79.4 Long term (current) use of insulin
CPT/HCPCS: 80053; 80061; 83036

== ENCOUNTER → 2021-12-06 10:50 | Outpatient (CLI) | payer MEDICARE, SELFPAY ==
--- NOTE | 2021-12-06 10:58 | CT_ITS ---
FINAL REPORT CLINICAL HISTORY: RUQ PAIN (SHARP) FINDINGS: Axial CT images of the abdomen and pelvis were obtained without intravenous contrast. Coronal reformatted images were also obtained.This study was performed with techniques to keep radiation doses as low as reasonably achievable (ALARA). Individualized dose reduction techniques using automated exposure control or adjustment of mA and/or kV according to the patient's size were employed. Abdomen: There is mild bibasilar atelectasis.The liver, spleen and pancreas have an unremarkable, unenhanced appearance. There is bilateral adrenal gland enlargement, favor adenomas. There is a less than 3 mm nonobstructing stone in the right kidney. The left kidney is unremarkable. There are moderate to large vascular calcifications. There is a large amount of stool throughout the colon. Pelvis: Images of the pelvis reveal no evidence of ureteral dilation or ureteral stone.No mass or abnormal fluid collection is identified. IMPRESSION: Less than 3 mm nonobstructing right renal stone. Bilateral adrenal gland enlargement, favor adenomas. Constipation. Reviewed, Interpreted and Dictated by Christo Andrade III, MD Transcribed by Dary Gary Authenticated and [facility]
[2021-12-06 13:18] LABS: Basophils # 0.1 K/mm3 (0-0.2); Basophils % 1.4 % (0.1-2.0); Eosinophils # 0.1 K/mm3 (0.0-0.4); Eosinophils % 1.7 % (0.1-12.0); Hematocrit 48.1 % (37.0-47.0); Hemoglobin 15.9 g/dL (12.2-16.2); Lymphocytes # 1.7 K/mm3 (0.7-4.5); Lymphocytes % 24.8 % (10-50); Mean Corpuscular HGB Conc 33.1 g/dL (31.8-35.4); Mean Corpuscular Hemoglobin 32.9 pg (27.0-31.2); Mean Corpuscular Volume 99.4 fl (81-99); Monocytes # 0.4 K/mm3 (0.1-1.0); Monocytes % 6.5 % (1.7-9.3); Neutrophils # 4.4 K/mm3 (1.8-7.8); Neutrophils % 65.6 % (37.0-80.0); Platelet Count 355 K/mm3 (142-424); Red Blood Count 4.83 M/mm3 (4.20-5.40); Red Cell Distribution Width 12.7 % (11.5-17.5); White Blood Count 6.8 K/mm3 (4.8-10.8)
[2021-12-06 13:24] LABS: Chloride 95 mmol/L (98-107); Sodium 132 mmol/L (136-145)
[2021-12-06 13:25] LABS: Potassium 4.2 mmoL/L (3.5-5.1)
[2021-12-06 13:27] LABS: Blood Urea Nitrogen 12 mg/dl (7-17); Estimated Glomerular Filt Rate 95 ml/min (>60); GFR (African American) 115 ML/MIN (>60)
[2021-12-06 13:28] LABS: Anion Gap 14.2 mEq/L (5-15); Calcium 8.5 mg/dl (8.4-10.2); Carbon Dioxide 27 mmol/L (22.0-30.0)
[2021-12-06 13:45] LABS: Hemoglobin A1C 9.8 % (4.0-6.0)
[2021-12-06 14:04] LABS: Glucose 446 mg/dl (74-100)
== END ==
PROVIDERS: PCP Internal Medicine; Visit Provider Internal Medicine
DX: R10.11 Right upper quadrant pain (principal); E11.42 Type 2 diabetes mellitus with diabetic polyneuropathy; I10 Essential (primary) hypertension; M15.0 Primary generalized (osteo)arthritis; Z79.4 Long term (current) use of insulin
CPT/HCPCS: 74176; 80048; 83036; 85025

== ENCOUNTER → 2022-01-22 14:40 | Outpatient (CLI) | payer MEDICARE, SELFPAY ==
--- NOTE | 2022-01-22 14:44 | US_ITS ---
FINAL REPORT CLINICAL HISTORY: ABN SCREENING BRITANY,HTN,HLD,DM FINDINGS: ANKLE-BRACHIAL PRESSURE INDICES Pressure indices are as follows: RIGHT LOWER EXTREMITY: Ankle-brachial pressure index: 0.9 Comments: Mild LEFT LOWER EXTREMITY: Ankle-brachial pressure index: 1.3 Comments: Normal CONCLUSION: No evidence of significant obstructive peripheral vascular disease of the left lower extremity and mild peripheral vascular disease of the right lower extremity. If indicated, CTA may be helpful for further evaluation. Reviewed, Interpreted and Dictated by Christo Andrade III, MD Transcribed by Kalli Cleary Authenticated and [facility]
== END ==
PROVIDERS: PCP Internal Medicine; Visit Provider Internal Medicine
DX: R09.89 Other specified symptoms and signs involving the circulatory and respiratory systems (principal)
CPT/HCPCS: 93923

== ENCOUNTER 2022-01-31 15:53 | Emergency (ER) | payer MEDICARE, SELFPAY ==
--- NOTE | 2022-01-31 15:51 | ECG_ITS ---
APPROVED REPORT Exam: Resting ECG HR:68 bpm ECG Measurements Heart Rate 68 AXES NJ 162 P 87 QRSd 86 QRS -29 QT 390 T 59 QTc 407 Conclusion SINUS RHYTHM BORDERLINE LEFT AXIS DEVIATION [QRS AXIS < -20] BORDERLINE ECG UNCONFIRMED REPORT Electronically signed by : Milton Case MD 02/01/2022 19:50:19
[2022-01-31 15:55] VITALS: BP 164/67; PULSE 64; RESP 16; TEMP 36.7; O2SAT 98; BMI 26.4
--- NOTE | 2022-01-31 16:11 | CT_ITS ---
PROCEDURE INFORMATION: Exam: CTA Chest With Contrast Exam date and time: 01/31/2022 5:42 PM Age: 86 years old Clinical indication: Pain; Chest pressure; Additional info: Chest pain straight to back TECHNIQUE: Imaging protocol: Computed tomographic angiography of the chest with contrast. 3D rendering (Not supervised by radiologist): MIP and/or 3D reconstructed images were created by the technologist. Radiation optimization: All CT scans at this facility use at least one of these dose optimization techniques: automated exposure control; mA and/or kV adjustment per patient size (includes targeted exams where dose is matched to clinical indication); or iterative reconstruction. Contrast material: ISOVUE 370; Contrast volume: 70 ml; Contrast route: INTRAVENOUS (IV); COMPARISON: CR XR CHEST PORTABLE 01/31/2022 4:41 PM FINDINGS: Pulmonary arteries: Normal. No pulmonary emboli. Aorta: Unremarkable. No aortic aneurysm. No aortic dissection. Lungs: Small patchy and consolidative airspace opacity in right upper lobe with air bronchogram. Right middle lobe atelectasis. Pleural spaces: Unremarkable. No pneumothorax. No pleural effusion. Heart: Scattered coronary artery calcifications. There is no cardiomegaly or pericardial effusion. Lymph nodes: Enlarged right hilar and mediastinal nodes likely reactive Intraperitoneal space: For findings in the abdomen and pelvis, please refer to the separately dictated abdomen and pelvis CT report under a separate accession number. Bones/joints: Unremarkable. No acute fracture. Soft tissues: Unremarkable. IMPRESSION: 1. No evidence of aortic aneurysm or dissection. No pulmonary embolus 2. Right upper lobe pneumonia
--- NOTE | 2022-01-31 16:12 | XR_ITS ---
PROCEDURE INFORMATION: Exam: XR Chest Exam date and time: 01/31/2022 4:41 PM Age: 86 years old Clinical indication: Chest wall pain; Additional info: Cp TECHNIQUE: Imaging protocol: Radiologic exam of the chest. Views: 1 view. COMPARISON: CT ABDOMEN PELVIS WO CON 12/06/2021 11:09 AM FINDINGS: Lungs: Lungs are hypoaerated. There is mild vascular congestion. Pleural spaces: Unremarkable. No pleural effusion. No pneumothorax. Heart/Mediastinum: Unremarkable. No cardiomegaly. Vasculature: Aortic knob calcifications Bones/joints: Unremarkable. IMPRESSION: Findings can be attributed to mild interstitial edema in the appropriate clinical context. Correlate clinically
--- NOTE | 2022-01-31 16:12 | CT_ITS ---
PROCEDURE INFORMATION: Exam: CTA Chest With Contrast CTA Abdomen and Pelvis With Contrast Exam date and time: 01/31/2022 5:42 PM Age: 86 years old Clinical indication: Pain; Other: Back; Additional info: Chest pain/back pain TECHNIQUE: Imaging protocol: Computed tomographic angiography of the chest with contrast. Computed tomographic angiography of the abdomen and pelvis with contrast. 3D rendering (Not supervised by radiologist): MIP and/or 3D reconstructed images were created by the technologist. Radiation optimization: All CT scans at this facility use at least one of these dose optimization techniques: automated exposure control; mA and/or kV adjustment per patient size (includes targeted exams where dose is matched to clinical indication); or iterative reconstruction. Contrast material: ISOVUE 370; Contrast volume: 100 ml; Contrast route: INTRAVENOUS (IV); COMPARISON: CT ABDOMEN PELVIS WO CON 12/06/2021 11:09 AM FINDINGS: VASCULATURE: Pulmonary arteries: Normal. No pulmonary emboli. 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 No flow-limiting stenosis involving proximal subclavian arteries are brachiocephalic trunk. Aorta is normal in course and caliber. No intraluminal flap. The aorta demonstrates moderate atherosclerotic calcification. No evidence of intraluminal flap. Celiac trunk and mesenteric arteries: No occlusion or significant stenosis. Renal arteries: No occlusion or significant stenosis. Right iliac arteries: No occlusion or significant stenosis. Left iliac arteries: No occlusion or significant stenosis. CHEST: Lungs: Small patchy and coalescing airspace opacity and air bronchogram right upper lobe. Atelectasis in right middle lobe Pleural spaces: Unremarkable. No pneumothorax. No pleural effusion. Heart: There is no cardiomegaly or pericardial effusion. Mild coronary artery calcifications. ABDOMEN AND PELVIS: Liver: No focal hepatic lesions. Gallbladder and bile ducts: Gallbladder is distended without radiopaque cholelithiasis. No biliary ductal dilation. Pancreas: No peripancreatic fluid stranding. No main pancreatic ductal dilation. Spleen: No splenomegaly. Splenic granulomas noted Adrenal glands: Nodular thickening of adrenal glands bilaterally. There is a dominant nodule in the right adrenal gland measuring 1.8 cm unchanged Kidneys and ureters: Nephrograms are symmetric. No nephrolithiasis or hydroureteronephrosis on either side. No solid lesions Stomach and bowel: Unremarkable. No obstruction. No mucosal thickening. Appendix: Status post appendectomy Intraperitoneal space: Unremarkable. No free air. No significant fluid collection. Urinary bladder: Unremarkable. No mass. Reproductive: Status post hysterectomy Lymph nodes: Enlarged right hilar and mediastinal nodes are likely reactive. Bones/joints: Multilevel degenerative changes of the included spine. No acute osseous abnormality Soft tissues: Unremarkable. IMPRESSION: 1. No evidence of aortic aneurysm or dissection. Patent major aortic branches. 2. Right upper lobe pneumonia 3. No acute abnormality in the abdomen or pelvis.
[2022-01-31 16:20] LABS: Basophils # 0.2 K/mm3 (0-0.2); Basophils % 1.4 % (0.1-2.0); Chloride 95 mmol/L (98-107); Eosinophils # 0.5 K/mm3 (0.0-0.4); Eosinophils % 4.3 % (0.1-12.0); Hematocrit 42.2 % (37.0-47.0); Hemoglobin 13.7 g/dL (12.2-16.2); Lymphocytes # 2.3 K/mm3 (0.7-4.5); Lymphocytes % 21.1 % (10-50); Mean Corpuscular HGB Conc 32.4 g/dL (31.8-35.4); Mean Corpuscular Hemoglobin 31.8 pg (27.0-31.2); Mean Corpuscular Volume 98.2 fl (81-99); Mean Platelet Volume 7.7 fl (7.4-10.4); Monocytes # 0.6 K/mm3 (0.1-1.0); Monocytes % 5.6 % (1.7-9.3); Neutrophils # 7.5 K/mm3 (1.8-7.8); Neutrophils % 67.6 % (37.0-80.0); Platelet Count 424 K/mm3 (142-424); Potassium 3.6 mmoL/L (3.5-5.1); Red Cell Distribution Width 13.3 % (11.5-17.5); Sodium 134 mmol/L (136-145)
[2022-01-31 16:22] LABS: Alanine Aminotransferase 15 U/L (12-78); Aspartate Amino Transferase 26 U/L (14-36); Bilirubin,Unconjugated 0.3 mg/dL (0.0-1.1); Blood Urea Nitrogen 6 mg/dl (7-17); Estimated Glomerular Filt Rate 118 ml/min (>60); GFR (African American) 142 ML/MIN (>60)
--- NOTE | 2022-01-31 16:22 | HMH.EDGENADL ---
Discharge Plan Disposition Patient Disposition: Home, Self-Care Condition: Good Prescriptions Prescriptions: New methocarbamol 500 mg tablet 500 mg PO Q8H PRN (Reason: severe pain) Qty: 20 0RF No Action pravastatin 40 mg tablet 40 mg PO HS famotidine 20 mg tablet 20 mg PO HS metformin 1,000 mg tablet 1,000 mg PO BID trazodone 50 mg tablet 50 mg PO HS ferrous sulfate [Feosol] 325 mg (65 mg iron) tablet 325 mg PO BID Jardiance 10 mg tablet 5 mg PO DAILY pioglitazone 15 mg tablet 15 mg PO DAILY loperamide 2 mg capsule 2 mg PO NEEDED PRN (Reason: Diarrhea) ascorbic acid (vitamin C) 500 mg capsule See Rx Instructions PO .COMPLEX Rx Instructions: 500mg PO; daily cholecalciferol (vitamin D3) 25 mcg (1,000 unit) capsule 25 mcg PO DAILY Antacid (calcium carbonate) 215 mg calcium (500 mg) tablet,chewable 215 mg PO DAILY multivitamin Tablet 1 tab PO DAILY lisinopril 20 mg tablet 20 mg PO DAILY Basaglar KwikPen U-100 Insulin 100 unit/mL (3 mL) insulin pen 10 unit SQ DAILY fluconazole 150 MG tablet 150 mg PO ONCE phenazopyridine 200 MG tablet 200 pow PO TID duloxetine 30 MG capsule,delayed release(DR/EC) 30 mg PO DAILY phenazopyridine 200 MG tablet 200 pow PO TID Qty: 6 0RF cefdinir 300 MG capsule 300 mg PO BID 7 Days Qty: 14 0RF Referrals Follow up/Referrals: Ricky Lacey MD [Primary Care Provider] - See instructions Activity Restrictions/Add. Instructions Additional Instructions/Restrictions: You were evaluated in the emergency department today for chest pain. At this time, we feel that this is likely musculoskeletal. It is important that you follow-up with your primary care provider over the next 48 hours. medical director occupational health your prescription for Robaxin and take it as needed for severe pain. Use caution while taking this medication. You may also take Tylenol and ibuprofen at home as needed for pain. Follow-up with your primary care provider as soon as possible. Return to the emergency department for any new or worsening symptoms. Clinical Impressions Clinical Impression: Atypical chest pain Instructions Patient Instructions: DI for Atypical Chest Pain Discharge ED Provider: Tessie Sotomayor General Adult HPI General Chief complaint: Chest Pain Stated complaint: chest pain Time Seen by Provider: 01/31/22 16:01 History of Present Illness HPI narrative: This patient is an 86-year-old female with a history of hypertension and diabetes presenting to the emergency department for evaluation of chest pain. Patient states that this morning around 6:00 AM when she was resting she had sudden onset severe left-sided substernal chest pain that was sharp and radiated straight to her back between her shoulder blades. She rates it as 11 out of 10 in severity. She states that it goes down her left arm and left leg. She denies ever experiencing is like this in the past. She states that nothing seems to make it better. It is worse with movement, but does not seem to be worse with palpation of the chest or back. Associated symptoms include mild shortness of breath when the spasms hit, as she states that it takes her breath away. She denies any fever, chills, abdominal pain, nausea, vomiting, changes in bowel movements, rashes, or swelling. No recent falls or traumatic injuries. Related Data Home Medications Medication Instructions Recorded Confirmed ascorbic acid (vitamin C) 500 mg See Rx Instructions PO .COMPLEX 01/09/21 03/10/21 capsule Supplement calcium carbonate 215 mg calcium 215 mg PO DAILY Heartburn 01/09/21 03/10/21 (500 mg) chewable tablet (Antacid (calcium carbonate)) cholecalciferol (vitamin D3) 25 25 mcg PO DAILY Supplement 01/09/21 03/10/21 mcg (1,000 unit) capsule empagliflozin 10 mg tablet 5 mg PO DAILY Diabetes 01/09/21 03/10/21 (Jardiance) famotidine 2
[2022-01-31 16:23] LABS: Albumin Level 3.7 g/dl (3.5-5.0); Alkaline Phosphatase 128 U/L (38-126); Anion Gap 10.6 mEq/L (5-15); Bilirubin,Direct 0.1 mg/dl (0.0-0.4); Bilirubin,Indirect 0.2 mg/dL (0.0-0.9); Bilirubin,Total 0.3 mg/dl (0.2-1.3); Carbon Dioxide 32 mmol/L (22.0-30.0); Glucose 178 mg/dl (74-100); Lipase 36 U/L (23-300); Magnesium 1.7 mg/dl (1.6-2.3); Total Protein,Serum 6.4 g/dl (6.3-8.2)
[2022-01-31 16:24] LABS: Creatinine Clearance Estimated 42 mL/min (50-200)
--- NOTE | 2022-01-31 16:28 | PC.NURSE ---
pt updated on POC- tests ordered by LOCO SIMON pt daughter at BS call light attached to pt bedrail, pt oriented to call light
--- NOTE | 2022-01-31 16:30 | PC.NURSE ---
rad at BS for portable xray
[2022-01-31 16:31] VITALS: BP 148/67; PULSE 65; RESP 18; O2SAT 97
[2022-01-31 16:50] LABS: Troponin I < 0.01 ng/ml (0.00-0.034)
[2022-01-31 17:00] VITALS: BP 151/68; PULSE 69; RESP 20; O2SAT 97
[2022-01-31 17:12] LABS: NT Pro Brain Natriuretic Pep. 356 pg/mL (0-450)
[2022-01-31 17:30] VITALS: BP 136/70; PULSE 61; RESP 19; O2SAT 97
[2022-01-31 18:00] VITALS: BP 133/52; PULSE 58; RESP 21; O2SAT 97
--- NOTE | 2022-01-31 18:43 | PC.NURSE ---
pt asked to go to the bathroom . assisted pt with going to the bathroom
--- NOTE | 2022-01-31 20:01 | PC.NURSE ---
shift change report given to [facility]
[2022-01-31 20:02] LABS: Troponin I < 0.01 ng/ml (0.00-0.034)
[2022-01-31 20:15] VITALS: BP 131/52; PULSE 48; PULSE 62; RESP 18; TEMP 36.6; O2SAT 99
== END 2022-01-31 20:22 | disposition home or self-care (01) ==
PROVIDERS: Emergency Provider Emergency Medicine; PCP Internal Medicine
DX: R07.89 Other chest pain (principal); I10 Essential (primary) hypertension; E11.9 Type 2 diabetes mellitus without complications; R06.02 Shortness of breath; M54.9 Dorsalgia, unspecified
CPT/HCPCS: 36415; 71045; 71275; 74174; 80048; 80076; 83690; 83735; 83880; 84484; 85025; 93005; 99285; Q9967

== ENCOUNTER → 2022-03-07 11:55 | Outpatient (CLI) | payer MEDICARE, SELFPAY ==
[2022-03-07 12:45] LABS: Creatinine,Urine Random 85 mg/dL (Not Estab.); Hemoglobin A1C 8.1 % (4.0-6.0)
[2022-03-07 12:53] LABS: Alanine Aminotransferase 12 U/L (12-78); Albumin Level 4.1 g/dl (3.5-5.0); Albumin/Globulin Ratio 1.7 (1.1-1.8); Alkaline Phosphatase 110 U/L (38-126); Anion Gap 13.4 mEq/L (5-15); Aspartate Amino Transferase 27 U/L (14-36); Bilirubin,Total 0.6 mg/dl (0.2-1.3); Blood Urea Nitrogen 15 mg/dl (7-17); Calcium 9.8 mg/dl (8.4-10.2); Carbon Dioxide 27 mmol/L (22.0-30.0); Chloride 98 mmol/L (98-107); Chol/HDL Ratio 2.2 (1-3.5); Cholesterol 141 mg/dl (140-200); Estimated Glomerular Filt Rate 95 ml/min (>60); GFR (African American) 115 ML/MIN (>60); Globulin 2.4 g/dL (1.3-3.2); Glucose 96 mg/dl (74-100); HDL Cholesterol 63 mg/dl (40-60); Potassium 4.4 mmoL/L (3.5-5.1); Sodium 134 mmol/L (136-145); Total Protein,Serum 6.5 g/dl (6.3-8.2); Triglycerides 80 mg/dl (30-150); VLDL Cholesterol 16 mg/dL (0-40)
== END ==
PROVIDERS: PCP Internal Medicine; Visit Provider Internal Medicine
DX: E11.42 Type 2 diabetes mellitus with diabetic polyneuropathy (principal); E78.5 Hyperlipidemia, unspecified
CPT/HCPCS: 80053; 80061; 82043; 82570; 83036

== ENCOUNTER → 2022-06-05 12:46 | Outpatient (CLI) | payer MEDICARE, SELFPAY ==
[2022-06-05 17:32] LABS: Hemoglobin A1C 7.3 % (4.0-6.0)
== END ==
PROVIDERS: PCP Internal Medicine; Visit Provider Internal Medicine
DX: I10 Essential (primary) hypertension (principal); E11.42 Type 2 diabetes mellitus with diabetic polyneuropathy; Z79.4 Long term (current) use of insulin
CPT/HCPCS: 83036

== ENCOUNTER → 2022-09-05 14:44 | Outpatient (CLI) | payer MEDICARE, SELFPAY ==
[2022-09-05 16:24] LABS: Basophils # 0.1 K/mm3 (0-0.2); Basophils % 0.9 % (0.1-2.0); Eosinophils # 0.6 K/mm3 (0.0-0.4); Eosinophils % 7.5 % (0.1-12.0); Hematocrit 45.8 % (37.0-47.0); Hemoglobin 14.7 g/dL (12.2-16.2); Lymphocytes # 1.7 K/mm3 (0.7-4.5); Lymphocytes % 23.7 % (10-50); Mean Corpuscular Hemoglobin 31.2 pg (27.0-31.2); Mean Corpuscular Volume 97.3 fl (81-99); Mean Platelet Volume 8.3 fl (7.4-10.4); Monocytes # 0.5 K/mm3 (0.1-1.0); Monocytes % 6.3 % (1.7-9.3); Neutrophils # 4.5 K/mm3 (1.8-7.8); Neutrophils % 61.6 % (37.0-80.0); Platelet Count 363 K/mm3 (142-424); Red Blood Count 4.71 M/mm3 (4.20-5.40); White Blood Count 7.3 K/mm3 (4.8-10.8)
[2022-09-05 16:47] LABS: Hemoglobin A1C 8.2 % (4.0-6.0)
[2022-09-05 16:50] LABS: Alanine Aminotransferase 17 U/L (12-78); Albumin Level 3.7 g/dl (3.5-5.0); Albumin/Globulin Ratio 1.4 (1.1-1.8); Alkaline Phosphatase 115 U/L (38-126); Anion Gap 17.1 mEq/L (5-15); Aspartate Amino Transferase 22 U/L (14-36); Bilirubin,Total 0.6 mg/dl (0.2-1.3); Blood Urea Nitrogen 8 mg/dl (7-17); Calcium 8.8 mg/dl (8.4-10.2); Carbon Dioxide 28 mmol/L (22.0-30.0); Chloride 95 mmol/L (98-107); Chol/HDL Ratio 3.2 (1-3.5); Cholesterol 188 mg/dl (140-200); Estimated Glomerular Filt Rate 95 ml/min (>60); GFR (African American) 115 ML/MIN (>60); Globulin 2.6 g/dL (1.3-3.2); Glucose 212 mg/dl (74-100); HDL Cholesterol 59 mg/dl (40-60); Potassium 4.1 mmoL/L (3.5-5.1); Sodium 136 mmol/L (136-145); Total Protein,Serum 6.3 g/dl (6.3-8.2); Triglycerides 131 mg/dl (30-150); VLDL Cholesterol 26 mg/dL (0-40)
[2022-09-05 17:01] LABS: Direct LDL Cholesterol 97.76 mg/dL (100-129)
== END ==
PROVIDERS: PCP Internal Medicine; Visit Provider Internal Medicine
DX: E11.59 Type 2 diabetes mellitus with other circulatory complications (principal); E11.42 Type 2 diabetes mellitus with diabetic polyneuropathy; I10 Essential (primary) hypertension; E78.5 Hyperlipidemia, unspecified; K58.0 Irritable bowel syndrome with diarrhea; M15.0 Primary generalized (osteo)arthritis; Z79.4 Long term (current) use of insulin
CPT/HCPCS: 80053; 80061; 83036; 85025

== ENCOUNTER → 2022-10-02 11:08 | Outpatient (CLI) | payer MEDICARE, SELFPAY ==
--- NOTE | 2022-10-02 11:23 | XR_ITS ---
FINAL REPORT CLINICAL HISTORY: POSS COVID, COUGH SOA FINDINGS: SINGLE-VIEW CHEST The heart size is normal. The mediastinum is normal. The lungs are clear. There is no pneumothorax. IMPRESSION: No acute cardiopulmonary process. Reviewed, Interpreted and Dictated by Christo Andrade III, MD Transcribed by Akilah Whitaker Authenticated and [facility]
[2022-10-02 11:40] LABS: Adenovirus,PCR Not Detected (NotDetected); Bordetella Pertussis Not Detected (NotDetected); Chlamydophila Pneumoniae, PCR Not Detected (NotDetected); Coronavirus 19, PCR Not Detected (NotDetected); Coronavirus 229E Not Detected (NotDetected); Coronavirus NL63 Not Detected (NotDetected); Coronavirus OC43 Not Detected (NotDetected); Coronovirus HKU1,PCR Not Detected (NotDetected); Human Metapneumovirus Not Detected (NotDetected); Influenza A, PCR Not Detected (NotDetected); Influenza AH1, 2009 Not Detected (NotDetected); Influenza AH1, PCR Not Detected (NotDetected); Influenza AH3,PCR Not Detected (NotDetected); Influenza B, PCR Not Detected (NotDetected); Mycoplasma Pneumoniae, PCR Not Detected (NotDetected); Parainfluenza 1, PCR Not Detected (NotDetected); Parainfluenza 2, PCR Not Detected (NotDetected); Parainfluenza 3, PCR Not Detected (NotDetected); Parainfluenza 4, PCR Not Detected (NotDetected); Respiratory Syncytial Virus Not Detected (NotDetected); Rhinovirus/Enterovirus Not Detected (NotDetected)
== END ==
PROVIDERS: PCP Internal Medicine; Visit Provider Internal Medicine
DX: R06.02 Shortness of breath; J20.9 Acute bronchitis, unspecified; R05.1 Acute cough; R09.89 Other specified symptoms and signs involving the circulatory and respiratory systems
CPT/HCPCS: 71045; 87581; 87632; 87798

== ENCOUNTER → 2022-12-05 10:28 | Outpatient (CLI) | payer MEDICARE, SELFPAY ==
--- NOTE | 2022-12-05 10:39 | ECG_ITS ---
APPROVED REPORT Exam: Resting ECG HR:100 bpm ECG Measurements Heart Rate 100 AXES GA 173 P 104 QRSd 85 QRS -49 QT 346 T 91 QTc 403 Conclusion SINUS TACHYCARDIA LEFT ANTERIOR FASCICULAR BLOCK [QRS AXIS <= -45, QR IN I, RS IN II] ABNORMAL QRS-T ANGLE [QRS-T AXIS DIFFERENCE > 60] ABNORMAL ECG Electronically signed by : Ricky Lacey MD 12/05/2022 11:52:31
--- NOTE | 2022-12-05 10:43 | XR_ITS ---
FINAL REPORT CLINICAL HISTORY: COUGH TACHYCARDIA COMPARISON: 10/02/2022 FINDINGS: Two views of the chest were obtained. The heart size and pulmonary vascularity are within normal limits. The mediastinum is normal. No acute pulmonary abnormality is identified. There is no pneumothorax. The bony thorax is intact. IMPRESSION: No active cardiopulmonary disease. Reviewed, Interpreted and Dictated by Christo Andrade III, MD Transcribed by Linda Marlow Authenticated and . [facility]
== END ==
PROVIDERS: PCP Internal Medicine; Visit Provider Internal Medicine
DX: R00.0 Tachycardia, unspecified (principal); R05.9 Cough, unspecified
CPT/HCPCS: 71046; 93005

== ENCOUNTER 2023-02-09 10:04 | Emergency (ER) | payer MEDICARE, SELFPAY ==
[2023-02-09 10:04] VITALS: BP 163/75; PULSE 91; RESP 18; TEMP 36.8; O2SAT 96; BMI 19.6
--- NOTE | 2023-02-09 10:21 | PC.NURSE ---
Dr. Stone at BS for pt eval
--- NOTE | 2023-02-09 10:23 | CT_ITS ---
PROCEDURE INFORMATION: Exam: CTA Neck With Contrast Exam date and time: 02/09/2023 11:37 AM Age: 87 years old Clinical indication: Other: Right sided lateral neck pain; Additional info: R lateral neck pain TECHNIQUE: Imaging protocol: Computed tomographic angiography of the neck with contrast. Exam focused on the cervical segments of the vasculature. 3D rendering (Not supervised by radiologist): MIP and/or 3D reconstructed images were created by the technologist. Radiation optimization: All CT scans at this facility use at least one of these dose optimization techniques: automated exposure control; mA and/or kV adjustment per patient size (includes targeted exams where dose is matched to clinical indication); or iterative reconstruction. Contrast material: ISOVUE; Contrast volume: 94 ml; Contrast route: INTRAVENOUS (IV); REPORTING DATA: Count of CT and Cardiac NM exams in prior 12 months: This patient has received 0 known CTs and 0 known cardiac nuclear medicine studies in the 12 months prior to the current study. COMPARISON: CT ANGIO CHEST 01/31/2022 5:42 PM FINDINGS: Right common carotid artery: No stenosis. No dissection or occlusion. Right internal carotid artery: No stenosis of the extracranial segment. No dissection or occlusion. Right external carotid artery: No occlusion or stenosis of the origin. Left common carotid artery: No stenosis. No dissection or occlusion. Left internal carotid artery: No stenosis of the extracranial segment. No dissection or occlusion. Left external carotid artery: No occlusion or stenosis of the origin. Right vertebral artery: No stenosis. No dissection or occlusion. Left vertebral artery: No stenosis. No dissection or occlusion. Soft tissues: Normal. No significant soft tissue swelling. Bones/joints: No acute fracture. Moderate degenerative changes lower cervical spine resulting in some foraminal stenosis. There is mild appearance of the bones with scattered small radiolucencies largest which is present within C7 vertebral body, nonspecific, possibly metastatic in nature. IMPRESSION: 1. Unremarkable CT of the neck. No stenosis or occlusion. 2. Degenerative changes lower cervical spine with nonspecific small bony radiolucencies cervical spine, nonspecific. Cannot exclude small bone metastasis. Continued follow-up advised. REFERENCES: NASCET CRITERIA. The degree of stenosis in the cervical segment of the internal carotid artery is based on NASCET criteria. Normal is no stenosis. Mild is less than 50% stenosis. Moderate is 50-69% stenosis. Severe is 70% to 99% stenosis. Total occlusion is no detectable patent lumen.
--- NOTE | 2023-02-09 10:25 | HMH.EDGENADL ---
Discharge Plan Disposition Patient Disposition: Home, Self-Care Chief Complaint: PAIN Prescriptions Prescriptions: No Action pravastatin 40 mg tablet 40 mg PO HS famotidine 20 mg tablet 20 mg PO HS metformin 1,000 mg tablet 1,000 mg PO BID trazodone 50 mg tablet 50 mg PO HS ferrous sulfate [Feosol] 325 mg (65 mg iron) tablet 325 mg PO BID Jardiance 10 mg tablet 5 mg PO DAILY pioglitazone 15 mg tablet 15 mg PO DAILY loperamide 2 mg capsule 2 mg PO NEEDED PRN (Reason: Diarrhea) ascorbic acid (vitamin C) 500 mg capsule See Rx Instructions PO .COMPLEX Rx Instructions: 500mg PO; daily cholecalciferol (vitamin D3) 25 mcg (1,000 unit) capsule 25 mcg PO DAILY Antacid (calcium carbonate) 215 mg calcium (500 mg) tablet,chewable 215 mg PO DAILY multivitamin Tablet 1 tab PO DAILY lisinopril 20 mg tablet 20 mg PO DAILY Basaglar KwikPen U-100 Insulin 100 unit/mL (3 mL) insulin pen 10 unit SQ DAILY fluconazole 150 MG tablet 150 mg PO ONCE phenazopyridine 200 MG tablet 200 pow PO TID duloxetine 30 MG capsule,delayed release(DR/EC) 30 mg PO DAILY phenazopyridine 200 MG tablet 200 pow PO TID Qty: 6 0RF cefdinir 300 MG capsule 300 mg PO BID 7 Days Qty: 14 0RF methocarbamol 500 mg tablet 500 mg PO Q8H PRN (Reason: severe pain) Qty: 20 0RF Referrals Follow up/Referrals: Ricky Lacey MD [Primary Care Provider] - See instructions Activity Restrictions/Add. Instructions Additional Instructions/Restrictions: At this time it was felt you are safe to be discharged home. If new or worsening symptoms please do not hesitate to return the emergency department. Please make sure you follow-up with your family doctor within 1 week for continued evaluation and reassessment. Clinical Impressions Clinical Impression: Acute neck pain, Abnormal bone scan of cervical spine Discharge ED Provider: Jeffry Stone General Adult HPI General Chief complaint: PAIN Stated complaint: Right side neck pain Time Seen by Provider: 02/09/23 10:11 Mode of Arrival: Wheelchair Source of Information: Patient Limitations: No Limitations Description of Symptoms (Recalled from ER Triage Doc. by RN): Pt reports pain in the right side of her neck that radiates to the top of her shoulder with movement. She reports pain started yesterday morning when she woke up. Pain is reproducible and she states as long as she does move it doesnt hurt. No other complaints reported. History of Present Illness HPI narrative: Patient is a 87-year-old female with past medical history of insulin-dependent diabetes, bulging disc with facet arthropathy who presents emergency department for evaluation of neck pain. Onset was acute, spontaneous, approximately 10 AM yesterday, right-sided. Worse with movement towards the ipsilateral side and ranging of the shoulder. Pain is largely resolved while patient is not moving. Denies chest pain, headache, trauma, other acute complaints at this time. Related Data Home Medications Medication Instructions Recorded Confirmed ascorbic acid (vitamin C) 500 mg See Rx Instructions PO .COMPLEX 01/09/21 03/10/21 capsule Supplement calcium carbonate 215 mg calcium 215 mg PO DAILY Heartburn 01/09/21 03/10/21 (500 mg) chewable tablet (Antacid (calcium carbonate)) cholecalciferol (vitamin D3) 25 25 mcg PO DAILY Supplement 01/09/21 03/10/21 mcg (1,000 unit) capsule empagliflozin 10 mg tablet 5 mg PO DAILY Diabetes 01/09/21 03/10/21 (Jardiance) famotidine 20 mg tablet 20 mg PO HS Reflux/Acid reflux 01/09/21 03/10/21 ferrous sulfate 325 mg (65 mg 325 mg PO BID IRON 01/09/21 03/10/21 iron) tablet (Feosol) loperamide 2 mg capsule 2 mg PO NEEDED PRN Diarrhea 01/09/21 03/10/21 metformin 1,000 mg tablet 1,000 mg PO BID Diabetes 01/09/21 03/10/21 multivitamin 1 tab PO DAILY Supplement 01/09/21
--- NOTE | 2023-02-09 10:30 | XR_ITS ---
PROCEDURE INFORMATION: Exam: XR Right Shoulder Exam date and time: 02/09/2023 10:49 AM Age: 87 years old Clinical indication: Pain; Shoulder; Right; Additional info: Pain rom TECHNIQUE: Imaging protocol: Radiologic exam of the right shoulder. Views: 2 or more views. COMPARISON: CR XR CHEST 2V 12/05/2022 10:46 AM FINDINGS: Bones/joints: No acute fracture. Moderate glenohumeral degenerate joint disease. Soft tissues: Normal. The right hemithorax is clear. Aortic atherosclerosis. IMPRESSION: No acute findings. Moderate glenohumeral degenerate joint disease.
[2023-02-09 10:35] LABS: Basophils # 0.1 K/mm3 (0-0.2); Basophils % 0.3 % (0.1-2.0); Eosinophils # 0.3 K/mm3 (0.0-0.4); Eosinophils % 1.1 % (0.1-12.0); Hematocrit 43.8 % (37.0-47.0); Lymphocytes % 4.2 % (10-50); Mean Corpuscular HGB Conc 34.3 g/dL (31.8-35.4); Mean Platelet Volume 7.6 fl (7.4-10.4); Monocytes # 0.5 K/mm3 (0.1-1.0); Monocytes % 2.4 % (1.7-9.3); Neutrophils # 20.8 K/mm3 (1.8-7.8); Neutrophils % 92.1 % (37.0-80.0); Platelet Count 327 K/mm3 (142-424); Red Blood Count 4.56 M/mm3 (4.20-5.40); Red Cell Distribution Width 13.1 % (11.5-17.5); White Blood Count 22.6 K/mm3 (4.8-10.8)
[2023-02-09 10:39] LABS: Chloride 96 mmol/L (98-107); Potassium 3.9 mmoL/L (3.5-5.1); Sodium 130 mmol/L (136-145)
[2023-02-09 10:42] LABS: Anion Gap 10.9 mEq/L (5-15); Blood Urea Nitrogen 13 mg/dl (7-17); Calcium 8.9 mg/dl (8.4-10.2); Carbon Dioxide 27 mmol/L (22.0-30.0); Creatinine Clearance Estimated 33 mL/min (50-200); Estimated Glomerular Filt Rate 80 ml/min (>60); GFR (African American) 96 ML/MIN (>60); Glucose 153 mg/dl (74-100)
[2023-02-09 10:57] LABS: MANUAL DIFFERENTIAL MANUAL DIFFERENTIAL (MANUAL DIFF)
--- NOTE | 2023-02-09 10:59 | XR_ITS ---
PROCEDURE INFORMATION: Exam: XR Chest Exam date and time: 02/09/2023 11:39 AM Age: 87 years old Clinical indication: Other: Right superior pain; Additional info: R superior pain TECHNIQUE: Imaging protocol: Radiologic exam of the chest. Views: 1 view. COMPARISON: CR XR CHEST 2V 12/05/2022 10:46 AM FINDINGS: Lungs: Unremarkable. No consolidation. Pleural spaces: Unremarkable. No pleural effusion. No pneumothorax. Heart/Mediastinum: Cardiac silhouette appears mildly enlarged on this portable chest. Bones/joints: Unremarkable for age. IMPRESSION: Mild cardiomegaly otherwise negative chest.
[2023-02-09 11:03] VITALS: BP 128/63; PULSE 79; O2SAT 93
[2023-02-09 11:04] LABS: Lymphocytes % 7 % (10-50); Monocytes % 5 % (2-9); Neutrophils % 88 % (42-76); Platelet Estimate Normal; RBC Morphology Normal; Total Cells Counted 100
[2023-02-09 12:00] VITALS: BP 124/53; PULSE 69; O2SAT 93
--- NOTE | 2023-02-09 12:40 | PC.NURSE ---
Dr. Stone at BS to update pt/visitors on POC
[2023-02-09 13:00] VITALS: BP 129/53; PULSE 75; O2SAT 93
[2023-02-09 13:22] VITALS: BP 129/53; PULSE 75; RESP 18; TEMP 36.8; O2SAT 93
== END 2023-02-09 13:22 | disposition home or self-care (01) ==
PROVIDERS: Emergency Provider Emergency Medicine; PCP Internal Medicine
DX: M54.2 Cervicalgia (principal); R93.7 Abnormal findings on diagnostic imaging of other parts of musculoskeletal system; E87.1 Hypo-osmolality and hyponatremia; D72.829 Elevated white blood cell count, unspecified; E11.9 Type 2 diabetes mellitus without complications; Z79.4 Long term (current) use of insulin
CPT/HCPCS: 70498; 71045; 73030; 80048; 85007; 85025; 96374; 99284; Q9967

== ENCOUNTER → 2023-02-11 15:46 | Outpatient (CLI) | payer MEDICARE, SELFPAY ==
[2023-02-11 16:56] LABS: Basophils # 0.1 K/mm3 (0-0.2); Basophils % 1.1 % (0.1-2.0); Eosinophils # 0.9 K/mm3 (0.0-0.4); Eosinophils % 10.1 % (0.1-12.0); Hematocrit 40.2 % (37.0-47.0); Hemoglobin 13.7 g/dL (12.2-16.2); Lymphocytes # 1.9 K/mm3 (0.7-4.5); Lymphocytes % 22.8 % (10-50); Mean Corpuscular HGB Conc 34.1 g/dL (31.8-35.4); Mean Corpuscular Hemoglobin 32.6 pg (27.0-31.2); Mean Corpuscular Volume 95.4 fl (81-99); Mean Platelet Volume 7.7 fl (7.4-10.4); Monocytes # 0.6 K/mm3 (0.1-1.0); Monocytes % 6.7 % (1.7-9.3); Neutrophils # 5.1 K/mm3 (1.8-7.8); Neutrophils % 59.3 % (37.0-80.0); Platelet Count 353 K/mm3 (142-424); Red Blood Count 4.21 M/mm3 (4.20-5.40); Red Cell Distribution Width 13.3 % (11.5-17.5); White Blood Count 8.6 K/mm3 (4.8-10.8)
== END ==
PROVIDERS: PCP Internal Medicine; Visit Provider Internal Medicine
DX: D72.829 Elevated white blood cell count, unspecified (principal); M54.2 Cervicalgia
CPT/HCPCS: 36415; 85025; 87040

== ENCOUNTER → 2023-02-12 15:16 | Outpatient (CLI) | payer MEDICARE, SELFPAY ==
[2023-02-12 15:21] LABS: Microscopic, Urine URINE MICROSCOPIC (MICROSCOPIC)
[2023-02-12 15:41] LABS: Appearance,Urine CLEAR (Clear); Bilirubin,Urine Negative (Negative); Blood, Urine Negative (Negative); Color,Urine YELLOW (Yellow); Glucose,Urine (UA) Negative (Negative); Ketones,Urine Negative (Negative); Leukocyte Esterase,Urine 1+ (Negative); Nitrate,Urine Negative (Negative); Protein,Urine Negative (Negative); Urobilinogen,Urine 0.2 EU/dl (0.2)
[2023-02-12 16:23] LABS: Bacteria,Urine 1+ /lpf; Squamous Epithelial Cell,Urine Occasional #/hpf (0-5); WBC,Urine Occasional #/hpf (0-3)
== END ==
PROVIDERS: PCP Internal Medicine; Visit Provider Internal Medicine
DX: N39.0 Urinary tract infection, site not specified (principal); B96.89 Other specified bacterial agents as the cause of diseases classified elsewhere
CPT/HCPCS: 81001; 87086

== ENCOUNTER → 2023-02-19 10:48 | Outpatient (CLI) | payer MEDICARE, SELFPAY ==
--- NOTE | 2023-02-19 10:50 | MR_ITS ---
FINAL REPORT TECHNIQUE: Multiplanar MR without contrast CLINICAL HISTORY: .ABNORMAL CT IMAGING. INTERMITTENT RIGHT SIDED NECK PAIN FINDINGS: Limited images of the posterior fossa are unremarkable. Alignment is normal. Cervical spinal cord shows normal signal and contour. C2-3: Mild endplate spurring and annular bulge. C3-4: Mild to moderate annular bulge. Mild left neural foraminal narrowing. C4-5: Mild annular bulge with tiny central disc protrusion. Mild facet arthropathy. Mild neural foraminal narrowing. C5-6: Moderate endplate spurring and facet arthropathy. Moderate bilateral neural foraminal narrowing. Moderate central canal stenosis. C6-7: Moderate annular bulge. Ligamentum flavum hypertrophy. Moderate central canal stenosis. Moderate bilateral neural foraminal narrowing. C7-T1: Unremarkable IMPRESSION: Multilevel degenerative changes with canal stenosis and neuroforaminal narrowing greatest at C5-C6 and C6-C7. Reviewed, Interpreted and Dictated by Nadia Del Castillo MD Transcribed by Claude Saavedra Authenticated and . [facility]
== END ==
LOC: RAD 10:49
PROVIDERS: PCP Internal Medicine; Visit Provider Internal Medicine
DX: R93.89 Abnormal findings on diagnostic imaging of other specified body structures (principal)
CPT/HCPCS: 72141; 76376

== ENCOUNTER → 2023-03-05 16:40 | Outpatient (CLI) | payer MEDICARE, SELFPAY ==
[2023-03-05 19:37] LABS: Hemoglobin A1C 6.9 % (4.0-6.0)
[2023-03-05 19:52] LABS: Alanine Aminotransferase 35 U/L (12-78); Albumin Level 3.8 g/dl (3.5-5.0); Albumin/Globulin Ratio 1.4 (1.1-1.8); Alkaline Phosphatase 112 U/L (38-126); Aspartate Amino Transferase 28 U/L (14-36); Bilirubin,Total 0.4 mg/dl (0.2-1.3); Blood Urea Nitrogen 13 mg/dl (7-17); Calcium 8.8 mg/dl (8.4-10.2); Carbon Dioxide 26 mmol/L (22.0-30.0); Chloride 92 mmol/L (98-107); Cholesterol 192 mg/dl (140-200); Estimated Glomerular Filt Rate 68 ml/min (>60); GFR (African American) 82 ML/MIN (>60); Globulin 2.8 g/dL (1.3-3.2); Glucose 322 mg/dl (74-100); Total Protein,Serum 6.6 g/dl (6.3-8.2); Triglycerides 200 mg/dl (30-150); VLDL Cholesterol 40 mg/dL (0-40)
[2023-03-05 19:54] LABS: Chol/HDL Ratio 3.3 (1-3.5); HDL Cholesterol 58 mg/dl (40-60); Sodium 127 mmol/L (136-145)
[2023-03-05 20:03] LABS: Direct LDL Cholesterol 102.98 mg/dL (100-129)
== END ==
PROVIDERS: PCP Internal Medicine; Visit Provider Internal Medicine
DX: E11.42 Type 2 diabetes mellitus with diabetic polyneuropathy (principal); D72.829 Elevated white blood cell count, unspecified; I10 Essential (primary) hypertension; E78.5 Hyperlipidemia, unspecified; Z79.84 Long term (current) use of oral hypoglycemic drugs
CPT/HCPCS: 80053; 80061; 83036

== ENCOUNTER 2023-08-02 11:23 | Outpatient (CLI) | payer MEDICARE, SELFPAY ==
--- NOTE | 2023-08-02 11:27 | US_ITS ---
FINAL REPORT CLINICAL HISTORY: bilateral leg cramping, claudication, rest pain, DM. COMPARISON: None FINDINGS: ANKLE-BRACHIAL PRESSURE INDICES Pressure indices are as follows: RIGHT LOWER EXTREMITY: Ankle-brachial pressure index: 0.52 Comments: Moderate vascular disease LEFT LOWER EXTREMITY: Ankle-brachial pressure index: 0.86 Comments: Mild vascular disease IMPRESSION: Moderate vascular disease of the right lower extremity. Mild vascular disease of the left lower extremity. Reviewed, Interpreted and Dictated by Christo Andrade III, MD Transcribed by Linda Marlow Authenticated and [facility]
== END 2023-08-02 23:59 | disposition home or self-care (01) ==
LOC: RT 11:24
PROVIDERS: PCP Internal Medicine; Visit Provider Internal Medicine
DX: M79.661 Pain in right lower leg (principal); I73.9 Peripheral vascular disease, unspecified
CPT/HCPCS: 93923

== ENCOUNTER 2023-09-09 07:44 | Outpatient (CLI) | payer MEDICARE, SELFPAY ==
--- NOTE | 2023-09-09 07:49 | CA_ITS ---
APPROVED REPORT EXAM: Comprehensive 2D, Doppler, and color-flow Echocardiogram Satellite Specialist: June Nguyen RVT Ht: 5 ft 2 in Wt: 117lbs BSA: 1.52 BP: 154/75 mmHg Indications: DD,FATIGUE 2D Dimensions IVSd 1.07 cm F: 0.6-1.0 LVEF (Visual) 66.00 % PWd 0.92 cm F: 0.6 - 1.0 LA Volume 33.20 mL LVDd 4.07 cm F: 3.9 - 5.3 LA Volume Index 21.84 mL/m2 (M/F) 16-34 LVDs 2.61 cm F: 2.2 - 3.5 M-Mode Dimensions RVDd 2.43 cm (0.9-2.6) LA Diam 3.19 cm (1.9-4.0) LVDd 3.43 cm (3.5-5.7) IVSd 1.14 cm (0.6-1.1) PWd 0.43 cm (0.6-1.1) EDV (Teich) 48.50 mL TAPSE 2.04 (<1.7) LV Diastology E Decel Time 233 (160-240 msec) E/A Ratio 1.4 Aortic Valve FAUSTINO Index 1.58 cm2/m2 AoV Peak Bridger. 119.0 (50-130 cm/s) AO Peak GR. 5.60 mmHg AO Mean GR. 3.30 (<5 mmHg) AO VTI 28.8 (18-25 cm) FAUSTINO (VTI) 2.46 (2.5-4.5 cm2) Mitral Valve MV E Max Bridger. 74.0 (40-130 cm/s) MV A Velocity 53.0 (40-130 cm/s) E/A Ratio 1.39 MV PHT 68.0 ms Pulmonary Valve PV Peak Velocity 73.0 (50-150 cm/s) Tricuspid Valve TR P. Velocity 267.00 cm/s RAP Estimate 10.00 mmHg RVSP 38.50 mmHg Left Ventricle The left ventricle is normal size. The left ventricular systolic function is normal. The left ventricular ejection fraction is within the normal range. There is increased LV wall thickness. Proximal septal thickening is noted. There is normal LV segmental wall motion. The left ventricular diastolic function is normal. LVEF is 60%. Right Ventricle The right ventricle is mildly dilated. The right ventricular systolic function is normal. Atria The left atrium is mildly dilated. The right atrium size is normal. There is no Doppler evidence of interatrial shunt. Aortic Valve The aortic valve is mildly thickened. There is no aortic valvular stenosis. Trace aortic regurgitation is present. Mitral Valve The mitral valve leaflets are mildly thickened. No evidence of mitral valve stenosis. Mild mitral regurgitation. Tricuspid Valve The tricuspid valve leaflets are thin and pliable. Mild tricuspid regurgitation. RVSP is 25-30 mmHg. Pulmonic Valve The pulmonary valve is normal in structure. Trace pulmonic regurgitation. Great Vessels The aortic root is normal in size. The ascending aorta is not well-visualized. IVC is normal in size and collapses >50% with inspiration. Pericardium There is no pericardial effusion. Other Information Study Quality: Fair Conclusion Normal biventricular systolic function. Mild RV dilation. Mild LA dilation. Mild MR, mild TR. Electronically signed by : Diana Beltran MD 09/11/2023 10:54:11
== END 2023-09-09 23:59 | disposition home or self-care (01) ==
LOC: RT 07:48
PROVIDERS: PCP Internal Medicine; Visit Provider Nurse Practitioner
DX: R53.83 Other fatigue (principal); I73.9 Peripheral vascular disease, unspecified; I51.89 Other ill-defined heart diseases
CPT/HCPCS: 93306

== ENCOUNTER 2023-09-12 11:50 | Observation (INO) | payer MEDICARE, SELFPAY ==
[2023-09-11 21:45] VITALS: BP 106/61; PULSE 66; RESP 18; TEMP 36.7; O2SAT 98
[2023-09-12] VITALS (59 sets, daily range): BP systolic 84–152; BP diastolic 29–84; PULSE 51–65; RESP 14–18; TEMP 36.4–36.8; O2SAT 90–100; BMI 21.4
--- NOTE | 2023-09-12 07:15 | IR_ITS ---
APPROVED REPORT Patient Location: Outpatient PROCEDURES Left femoral arterial access Catheter placement in the abdominal aorta Abdominal aortography Repositioning of the cath into the abdominal aorta Bilateral iliofemoral runoff Intravascular lithotripsy to the right popliteal artery and right superficial femoral artery Drug-coated balloon angioplasty to the right popliteal artery and right superficial femoral artery INDICATION Severe peripheral artery disease, Antonio claudication class III-IV, Abnormal BRITANY 0.5 right leg, Subtotal occlusion of the right popliteal and right superficial femoral artery, Informed consent was obtained prior to the procedure. COMPLICATIONS NONE Estimated Blood Loss: LESS THAN 10 ML TECHNIQUE 1% lidocaine used to anesthetize the left femoral groin. The left femoral artery was accessed via the Seldinger technique. A 5 [place] sheath was placed in the left femoral artery and a pigtail catheter was advanced under fluoroscopic guidance into the abdominal aorta. Abdominal aortography was performed and the catheter was then repositioned followed by bilateral iliofemoral runoff. Following this a rim catheter was advanced to the distal abdominal aorta and under fluoroscopic guidance and advantage 014 wire was advanced into the right superficial femoral artery. The 5 [place] sheath was exchanged for a long 6 [place] destination sheath. Therapeutic heparin was administered giving a therapeutic ACT. A 300 cm Choice PT after support wire was used to traverse the stenoses in the right SFA and right popliteal artery. A 5.5 x 60 mm intravascular lithotripsy shockwave balloon was deployed at 4 garland up and down the right popliteal artery and right superficial femoral artery delivering a total of 300 pulsations. Following this a 6 mm x 250 mm drug-coated balloon was placed into the popliteal artery extending into the right SFA and deployed at 5 garland for 3 minutes. Residual stenosis was identified therefore a 6 mm x 20 mm balloon was deployed at 10 garland to reduce the calcified concentric stenosis at Naseem's canal. Following this an additional 6 mm x 150 mm drug-coated balloon was placed proximally and deployed at 5 garland for 3 minutes. Repeat angiography demonstrated residual stenosis at the right popliteal artery therefore a 5 mm x 200 mm drug-coated balloon was advanced and deployed at 8 garland for 3 minutes reducing the stenosis to 0%. After achieving excellent angiographic results apparatus was removed the sheath was sewn in place patient was transferred to the postop putting in stable condition ANGIOGRAPHIC RESULTS Suprarenal abdominal aorta is atheromatous and calcified with no stenosis greater than 20%. The left renal artery singular and has an ostial calcified 70% stenosis. The right renal artery has 3 arteries with a superior branch supplying 20% and normal while the 2 inferior branches equally supply 40% of the remaining renal parenchyma and have ostial 40% stenosis Infrarenal abdominal aorta is calcified and narrowed to 30% distally Bilateral common iliac arteries are widely patent the right internal iliac artery is patent while the left appears to be subtotally occluded. Both external iliac arteries are patent as are both widely patent common femoral arteries Right profunda femoris artery is patent right superficial femoral artery has proximal calcified 80% stenoses mid vessel 90% stenoses with additional diffuse 70 and 80% stenoses. Popliteal artery then has additional calcified 80 to 90% stenoses. The popliteal artery is then occluded at the infrageniculate level and then reconstitutes via collaterals into the anterior tibialis artery and peroneal artery. The posterior tibialis artery also appears to open and slowly supplies flow distally The left profunda femoris artery is patent. The left superficial femoral artery has mid vessel 70% stenoses with diffuse 70 to 80% stenoses at Naseem's canal with additional 70% stenoses in the popliteal artery. Distally there is three-vessel runoff below the knee IMPRESSION Peripheral artery disease as described above Bilateral renal artery stenosis as described above Severe disease throughout the right SFA and right popliteal artery Successful intravascular lithotripsy of the right SFA and right popliteal artery severe disease reduced to less than 10% with intravascular lithotripsy followed by drug-coated balloon angioplasty PLAN 1. dual antiplatelet therapy for the next month 2. Recommend bringing patient back in 2 weeks and undergoing stenting to the left renal artery and selective angiography of each right renal artery with possible stenting 3. If patient has had successful clinical response consideration can be given to revascularize the left SFA and popliteal artery in a similar manner as above 4. LDL less than 55 achieved high intensity statin 5. Avoidance of tobacco products 6. Recommend physical therapy Electronically signed by : Ronnie Angel MD 09/12/2023 12:52:46
[2023-09-12 08:35] LABS: Basophils # 0.1 K/mm3 (0-0.2); Eosinophils # 0.2 K/mm3 (0.0-0.4); Eosinophils % 2.8 % (0.1-12.0); Hematocrit 45.1 % (37.0-47.0); Hemoglobin 14.7 g/dL (12.2-16.2); Lymphocytes # 1.7 K/mm3 (0.7-4.5); Mean Corpuscular HGB Conc 32.6 g/dL (31.8-35.4); Mean Corpuscular Volume 98.2 fl (81-99); Mean Platelet Volume 7.7 fl (7.4-10.4); Monocytes # 0.5 K/mm3 (0.1-1.0); Monocytes % 6.6 % (1.7-9.3); Neutrophils # 5.3 K/mm3 (1.8-7.8); Neutrophils % 67.6 % (37.0-80.0); Platelet Count 426 K/mm3 (142-424); Red Cell Distribution Width 13.2 % (11.5-17.5); White Blood Count 7.8 K/mm3 (4.8-10.8)
[2023-09-12 08:39] LABS: Chloride 96 mmol/L (98-107); Potassium 3.9 mmoL/L (3.5-5.1); Sodium 132 mmol/L (136-145)
[2023-09-12 08:42] LABS: Anion Gap 11.9 mEq/L (5-15); Blood Urea Nitrogen 12 mg/dl (7-17); Calcium 9.4 mg/dl (8.4-10.2); Carbon Dioxide 28 mmol/L (22.0-30.0); Creatinine Clearance Estimated 34 mL/min (50-200); Estimated Glomerular Filt Rate 80 ml/min (>60); GFR (African American) 96 ML/MIN (>60); Glucose 123 mg/dl (74-100)
[2023-09-12] MEDS: diphenhydrAMINE 50MG/ML VIAL 50 MG IV (10:37)
[2023-09-12] MEDS: LIDOCAINE 1% 10ML MDV 20 ML IJ (10:37)
[2023-09-12] MEDS: HEPARIN 1,000 UNITS/500ML NS (CATH LAB) 3000 UNIT IV (10:37)
[2023-09-12] MEDS: HEPARIN 1,000 UNITS/ML 10ML VIAL (CATH LAB) 10000 UNIT IV (10:38)
[2023-09-12] MEDS: FENTANYL 100MCG/2ML VIAL 50 MCG IV (10:38)
[2023-09-12] MEDS: MIDAZOLAM HCL 1MG/1ML 5ML VIAL 1 MG IV (10:38)
[2023-09-12] MEDS: 0.9 % SODIUM CHLORIDE 500 ML 25 ML IV (10:38)
[2023-09-12] MEDS: CLOPIDOGREL 300MG TABLET 300 MG PO (11:29)
--- NOTE | 2023-09-12 11:37 | SUR.PHASEII ---
Spoke to Dr Qureshi regarding admission
[2023-09-12] MEDS: IOPAMIDOL-250 (51%) 100ML BOT 250 ML IV (11:45)
[2023-09-12 11:53] LABS: CATHL Activated Clotting Time 244 SEC (74-125)
--- NOTE | 2023-09-12 12:21 | HMH.PHAINT1 ---
Pharmacy Intervention Comments: MEDICATION RECONCILIATION COMPLETED ON PATIENT USING EXTERNAL FILL HISTORY FROM PHARMACY. -ABDULLAHI MAURO, DOREEND
[2023-09-12] MEDS: PROTAMINE SULFATE 50MG/5ML VIAL (CATH LAB) 50 MG IV (12:40)
--- NOTE | 2023-09-12 12:45 | SUR.PHASEII ---
Family at bedside
[2023-09-12 13:22] LABS: Hemoglobin A1C 6.6 % (4.0-6.0)
--- NOTE | 2023-09-12 16:01 | P.HP_ITS ---
History of Present Illness *Admission Date: 09/12/23 *Reason for visit:: Status post peripheral revascularization, pain left groin *History of present illness: 87-year-old female with significant history of diabetes, tobacco use disorder, peripheral vascular disease. Presented for elective peripheral artery angiogram and revascularization due to severe peripheral artery disease ([place] claudication class III/IV) and abnormal BRITANY 0.5 in the right leg. She has a history of subtotal occlusion of the right popliteal and right superficial femoral artery. Patient had successful revascularization, tolerated procedure well. Due to severity of disease and extent of revascularization, along with contrast load, medicine was consulted for admission and monitoring overnight. On arrival to the floor, patient denies any pain. His hemodynamically stable. On room air. Denies any chest pain, nausea, vomiting, palpitations, shortness of breath. [facility] Disclaimer: The information contained in this section may have been updated after the patient was seen, as this information can be updated by other users. Medical History Diastolic dysfunction PVD (peripheral vascular disease) Fatigue Social History Smoking Status: Never smoker alcohol intake: never substance use type: denies use current occupational status: unemployed Travel in the last 8 weeks: Inside the [place] household members: spouse housing: house caffeine: Yes Review of Systems Review of Systems Review of systems (narrative): 14 point review of systems performed, pertinent positives and negatives as per [facility] Meds Home Medications and Allergies Home Medications Medication Instructions Recorded Confirmed Type cholecalciferol (vitamin D3) 25 25 mcg PO DAILY 01/09/21 09/12/23 History mcg (1,000 unit) capsule famotidine 20 mg tablet 20 mg PO HS 01/09/21 09/12/23 History ferrous sulfate 325 mg (65 mg 325 mg PO BID 01/09/21 09/12/23 History iron) tablet (Feosol) metformin 1,000 mg tablet 1,000 mg PO BID Diabetes 01/09/21 09/12/23 History aspirin 81 mg chewable tablet 81 mg PO DAILY 30 days #30 tabs 09/12/23 Rx clopidogrel 75 mg tablet (Plavix) 75 mg PO DAILY 30 days #30 tabs 09/12/23 Rx gabapentin 600 mg tablet 600 mg PO HS 09/12/23 09/12/23 History insulin glargine U-300 conc 300 26 unit SQ DAILY 09/12/23 09/12/23 History unit/mL (1.5 mL) subcutaneous pen ([employer] SoloStar U-300 Insulin) lisinopril 20 1 tab PO DAILY 09/12/23 09/12/23 History mg-hydrochlorothiazide 12.5 mg tablet New Prescriptions to Start Prescriptions: aspirin Ronnie Angel clopidogrel [Plavix] Ronnie Angel Allergies Allergy/AdvReac Type Severity Reaction Status Date / Time No Known Allergies Allergy Verified 09/03/23 09:53 Exam Data for Last 24 hours Vital signs and Labs for Last 24 Hours: Temp Pulse Resp BP Pulse Ox O2 Del Method 97.6 F 59 L 18 143/56 H 100 Room Air 09/12/23 15:45 09/12/23 15:45 09/12/23 15:45 09/12/23 15:45 09/12/23 15:45 09/12/23 15:45 Laboratory Results - last 24 hr 09/12/23 08:18: WBC 7.8, RBC 4.60, Hgb 14.7, Hct 45.1, MCV 98.2, MCH 32.0 H, MCHC 32.6, RDW 13.2, Plt Count 426 H, MPV 7.7, Neut % (Auto) 67.6, Lymph % (Auto) 22.0, [place] % (Auto) 6.6, Eos % (Auto) 2.8, Baso % (Auto) 1.0, Neut # (Auto) 5.3, Lymph # (Auto) 1.7, [place] # (Auto) 0.5, Eos # (Auto) 0.2, Baso # (Auto) 0.1, Sodium 132 L, Potassium 3.9, Chloride 96 L, Carbon Dioxide 28, Anion Gap 11.9, BUN 12, Creatinine 0.70, Estimated Creat Clear 34, Estimated GFR 80, Est GFR ( Amer) 96, Glucose 123 H, Hemoglobin A1c 6.6 H, Calcium 9.4 09/12/23 11:02: Activated Clotting Time 244 H* I & O for Last 24 hours: Intake & Output 09/09/23 09/10/23 09/11/23 09/12/23 23:59 23:59 23:59 23:59 Weight 53.07 kg Constitutional Constitutional: no acute distress, average body habitus and cooperative *Routine HEENT Exam Head: Present normocephalic Eye: Present EOMI and PERRL ENT: Present mucous membranes moist *Routine Neck Exam Neck: Present supple; Absent lymphadenopathy *Routine Respiratory Exam Respiratory: Present CTA bilaterally; Absent rhonchi or wheezes *Routine Cardiovascular Exam Cardiovascular: Present RRR *Routine Abdominal Exam Abdominal: Present soft and normoactive bowel sounds; Absent tenderness *Routine Rectal Exam Rectal:: deferred *Routine Genitalia Exam Genitalia:: normal female Comment:: Left femoral insertion site clean dry and intact. No bleeding or hematoma *Routine Extremities Exam Extremities: Absent cyanosis, clubbing or edema *Routine Skin Exam Skin: Present warm; Absent rash *Routine Neurological Exam Neurological: Present alert, oriented X3 and moving all extremities; Absent altered mental status Assessment and Plan *Assessment and plan (1) PVD (peripheral vascular disease): Status: Acute Category: Medical Code(s): I73.9 - Peripheral vascular disease, unspecified (2) Claudication: Status: Acute Category: Medical Code(s): I73.9 - Peripheral vascular disease, unspecified (3) Diabetes mellitus: Status: Chronic Category: Medical Code(s): E11.9 - Type 2 diabetes mellitus without complications (4) Renal artery stenosis: Status: Acute Category: Medical Code(s): I70.1 - Atherosclerosis of renal artery Plan Ms. Hodges is an 87-year-old female with peripheral vascular disease, presented for elective peripheral arteriogram. Status post stenting. Extensive work with her procedure today. Due to bleeding risk and pain need to monitor labs, cardiology consulted with medicine for admission. Agreed to admit overnight for observation and serial labs in the morning with serial exams of left groin. Patient hemodynamically stable on arrival to the floor. Problems addressed as follows: Peripheral vascular disease Subtotal occlusion of right popliteal and right superficial femoral arteries - [place] claudication class Per my review, BRITANY performed 08/01 shows 0.5 right leg, Subtotal occlusion of the right popliteal and right superficial femoral artery, -Post right SFA and right popliteal artery revascularization. Discussed case with cardiology and reviewed notes, findings as follows: -- Patient found to have severe disease throughout right SFA and right popliteal artery, bilateral renal artery stenosis. Successful intravascular lithotripsy of right SFA and right popliteal artery, reduced to less than 10% with lithotripsy and balloon angioplasty. -Recommend continuing dual antiplatelet therapy with aspirin and Plavix for the next month. -Patient to return in 2 weeks to undergo stenting of left renal artery and selective angiography of each right renal artery with possible stenting. -If achieves good results from revascularization of right lower extremity arteries, will consider revascularizing left SFA and popliteal artery. Diabetes: -A1c well-controlled at 6.6 -Fingersticks ACHS with sliding scale insulin. Continue home regimen once daily long-acting insulin, reduced dose of 20 units daily. Continue metformin at 1000 mg twice daily Hypertension CAD -Continue home lisinopril-HCTZ combo daily Continue gabapentin 600 mg nightly for neuropathy Continue famotidine 20 mg nightly for GERD Full code Diabetic diet Heparinized in [employer]
[2023-09-12 16:35] LABS: POC Glucose,Bedside 103 (70-110)
[2023-09-12] MEDS: PATIENT'S OWN HOME MEDICATION (Metformin 1,000 mg tablet) 1000 EACH PO (20:49)
[2023-09-12] MEDS: GABAPENTIN 600MG TABLET 600 MG PO (20:50)
[2023-09-12] MEDS: FAMOTIDINE 20MG TABLET 20 MG PO (20:50)
[2023-09-12 20:58] LABS: POC Glucose,Bedside 122 (70-110)
[2023-09-13] VITALS: BP 121/55; PULSE 63; PULSE 65; RESP 16; TEMP 36.5; O2SAT 96
[2023-09-13 04:00] VITALS: BP 108/63; PULSE 57; PULSE 61; RESP 18; TEMP 36.8; O2SAT 98; BMI 23.0
--- NOTE | 2023-09-13 04:51 | PC.NURSE ---
PATIENT HAS HAD A GOOD NIGHT. DENIES PAIN/SOA/DISCOMFORT. DRSG TO LEFT GROIN CATH SITE C/D/I, NO S/S OF BLEEDING. NPO SINCE MN ORDERED. SINUS RHYTHM/SINUS BRADYCARDIA NOTED ON TELEMETRY. PEDAL PULSES HEARD WITH DOPPLER (UNABLE TO PALPATE). FEET WARM/DRY. VITAL SIGNS STABLE. NO FEVERS.
[2023-09-13 05:38] LABS: POC Glucose,Bedside 64 (70-110)
[2023-09-13 05:58] LABS: POC Glucose,Bedside 76 (70-110)
[2023-09-13 06:22] LABS: Basophils # 0.1 K/mm3 (0-0.2); Basophils % 0.8 % (0.1-2.0); Eosinophils # 0.2 K/mm3 (0.0-0.4); Hematocrit 40.2 % (37.0-47.0); Lymphocytes # 1.9 K/mm3 (0.7-4.5); Lymphocytes % 19.8 % (10-50); Mean Corpuscular HGB Conc 32.6 g/dL (31.8-35.4); Mean Corpuscular Hemoglobin 31.4 pg (27.0-31.2); Mean Corpuscular Volume 96.4 fl (81-99); Mean Platelet Volume 7.8 fl (7.4-10.4); Monocytes # 0.6 K/mm3 (0.1-1.0); Monocytes % 5.9 % (1.7-9.3); Neutrophils # 6.8 K/mm3 (1.8-7.8); Neutrophils % 71.5 % (37.0-80.0); Platelet Count 374 K/mm3 (142-424); Red Blood Count 4.17 M/mm3 (4.20-5.40); Red Cell Distribution Width 13.4 % (11.5-17.5); White Blood Count 9.5 K/mm3 (4.8-10.8)
[2023-09-13 06:23] LABS: Chloride 99 mmol/L (98-107); Sodium 130 mmol/L (136-145)
[2023-09-13 06:26] LABS: Alanine Aminotransferase 19 U/L (12-78); Albumin Level 3.3 g/dl (3.5-5.0); Albumin/Globulin Ratio 1.3 (1.1-1.8); Alkaline Phosphatase 72 U/L (38-126); Aspartate Amino Transferase 24 U/L (14-36); Bilirubin,Total 0.5 mg/dl (0.2-1.3); Blood Urea Nitrogen 10 mg/dl (7-17); Calcium 8.7 mg/dl (8.4-10.2); Carbon Dioxide 28 mmol/L (22.0-30.0); Creatinine Clearance Estimated 37 mL/min (50-200); Estimated Glomerular Filt Rate 80 ml/min (>60); GFR (African American) 96 ML/MIN (>60); Globulin 2.6 g/dL (1.3-3.2); Glucose 99 mg/dl (74-100); Total Protein,Serum 5.9 g/dl (6.3-8.2)
[2023-09-13 06:27] LABS: Hemoglobin 13.1 g/dL (12.2-16.2); Magnesium 1.7 mg/dl (1.6-2.3)
[2023-09-13 08:00] VITALS: BP 132/57; PULSE 67; PULSE 70; RESP 16; TEMP 36.4; O2SAT 98
[2023-09-13] MEDS: hydroCHLOROthiazide 12.5MG CAPSULE 12.5 MG PO (08:22)
[2023-09-13] MEDS: LISINOPRIL 20MG TABLET 20 MG PO (08:22)
--- NOTE | 2023-09-13 08:25 | P.PN_ITS ---
Subjective Subjective Date: 09/13/23 Time: 08:25 Principal diagnosis: PAD status post stenting Interval history: 87-year-old white female admitted after outpatient procedure yesterday for monitoring overnight due to amount of contrast used. Patient denies any problems overnight. Pulses in the feet are 1-2+ and equal. Patient has ambulated to the bathroom without difficulty. She is anxious to go home. Exam Data for Last 24 hours Vital signs and Labs for Last 24 Hours: Temp Pulse Resp BP Pulse Ox O2 Del Method 98.2 F 61 18 108/63 L 98 Room Air 09/13/23 04:00 09/13/23 04:00 09/13/23 04:00 09/13/23 04:00 09/13/23 04:00 09/13/23 06:30 Laboratory Results - last 24 hr 09/12/23 08:18: WBC 7.8, RBC 4.60, Hgb 14.7, Hct 45.1, MCV 98.2, MCH 32.0 H, MCHC 32.6, RDW 13.2, Plt Count 426 H, MPV 7.7, Neut % (Auto) 67.6, Lymph % (Auto) 22.0, [place] % (Auto) 6.6, Eos % (Auto) 2.8, Baso % (Auto) 1.0, Neut # (Auto) 5.3, Lymph # (Auto) 1.7, [place] # (Auto) 0.5, Eos # (Auto) 0.2, Baso # (Auto) 0.1, Sodium 132 L, Potassium 3.9, Chloride 96 L, Carbon Dioxide 28, Anion Gap 11.9, BUN 12, Creatinine 0.70, Estimated Creat Clear 34, Estimated GFR 80, Est GFR ( Amer) 96, Glucose 123 H, Hemoglobin A1c 6.6 H, Calcium 9.4 09/12/23 11:02: Activated Clotting Time 244 H* 09/12/23 16:27: POC Glucose 103 09/12/23 20:48: POC Glucose 122 H 09/13/23 05:28: POC Glucose 64 L 09/13/23 05:51: POC Glucose 76 09/13/23 06:05: WBC 9.5, RBC 4.17 L, Hgb 13.1 D, Hct 40.2, MCV 96.4, MCH 31.4 H , MCHC 32.6, RDW 13.4, Plt Count 374, MPV 7.8, Neut % (Auto) 71.5, Lymph % (Auto) 19.8, [place] % (Auto) 5.9, Eos % (Auto) 2.0, Baso % (Auto) 0.8, Neut # (Auto) 6.8, Lymph # (Auto) 1.9, [place] # (Auto) 0.6, Eos # (Auto) 0.2, Baso # (Auto) 0.1, Sodium 130 L, Potassium 4.0, Chloride 99, Carbon Dioxide 28, Anion Gap 7.0, BUN 10, Creatinine 0.70, Estimated Creat Clear 37, Estimated GFR 80, Est GFR ( Amer) 96, Glucose 99, Calcium 8.7, Magnesium 1.7, Total Bilirubin 0.5, AST 24, ALT 19, Alkaline Phosphatase 72, Total Protein 5.9 L, Albumin 3.3 L, Globulin 2.6, Albumin/Globulin Ratio 1.3 I & O for Last 24 hours: Intake & Output 09/10/23 09/11/23 09/12/23 09/13/23 11:59 11:59 11:59 11:59 Intake Total 240 / 240 Output Total 1150 / 1150 Balance -910 / -910 Weight 117 lb 125 lb 1.6 oz Constitutional Constitutional: no acute distress *Routine Respiratory Exam Respiratory: Present CTA bilaterally *Routine Cardiovascular Exam Cardiovascular: Present RRR *Routine Extremities Exam Extremities: Absent cyanosis, clubbing or edema Comments: DP pulses in feet 1-2+ bilaterally and equal. *Routine Neurological Exam Neurological: Present alert, oriented X3 and CN II-XII intact Progress Note: A&P Assessment and plan (1) PVD (peripheral vascular disease): Status: Acute (2) Claudication: Status: Acute (3) Diabetes mellitus: Status: Chronic (4) Renal artery stenosis: Status: Acute Assessment and Plan Assessment and Plan for All Diagnoses:: 1. Bilateral lower extremity PAD -Status post right lower extremity lithotripsy with drug-coated balloon angioplasty to SFA and popliteal arteries. -Dual antiplatelet therapy with aspirin and Plavix -Remaining left SFA and popliteal disease left for medical therapy at this time with consideration of repeat angioplasty in 2 weeks 2. Bilateral renal artery stenosis left greater than right -renal functions normal 3. Dyslipidemia -LDL 102.98 -Start statin therapy 4. Diabetes mellitus -Hgb A1c 6.6 5. Hypertension -Controlled on current medical therapy -Echocardiogram 09/09/2023, EF 60% with increased LV wall thickness/proximal septal thickening. Mild LA enlargement and RV enlargement. Mild MR. RVSP 25- 30 mmHg. Stable from cardiac standpoint for discharge home. Home medication recommendations: Aspirin 81 mg daily Plavix 75 mg daily Lisinopril/HCTZ 20/12.5 mg daily Lipitor 20 mg daily Follow-up in our office next week with plans to schedule repeat lower extremity angiogram and renal angiogram in 2 to 3 weeks
[2023-09-13] MEDS: CLOPIDOGREL 75MG TAB 75 MG PO (08:27)
[2023-09-13] MEDS: ASPIRIN EC 81MG TABLET 81 MG PO (08:27)
[2023-09-13] MEDS: INSULIN GLARGINE 100 UNITS/ML 10ML VIAL 20 UNIT SQ (08:30)
[2023-09-13 11:25] VITALS: BP 108/56; PULSE 83; RESP 20; TEMP 36.8; O2SAT 96
[2023-09-13] MEDS: humaLOG 100 UNITS/ML 10ML VIAL (SSI) SQ (12:36)
[2023-09-13 12:47] LABS: POC Glucose,Bedside 169 (70-110)
--- NOTE | 2023-09-13 14:21 | EXP.DC.SUM ---
General Admission date:: 09/12/23 Discharge date: 09/13/23 HPI HPI HPI: 87-year-old female with significant history of diabetes, tobacco use disorder, peripheral vascular disease. Presented for elective peripheral artery angiogram and revascularization due to severe peripheral artery disease ([place] claudication class III/IV) and abnormal BRITANY 0.5 in the right leg. She has a history of subtotal occlusion of the right popliteal and right superficial femoral artery. Patient had successful revascularization, tolerated procedure well. Due to severity of disease and extent of revascularization, along with contrast load, medicine was consulted for admission and monitoring overnight. On arrival to the floor, patient denies any pain. His hemodynamically stable. On room air. Denies any chest pain, nausea, vomiting, palpitations, shortness of breath. Hospital Course Hospital Course Hospital Course: Ms. Dent is an 87-year-old female with peripheral vascular disease, presented for elective peripheral arteriogram. Status post stenting. Extensive work with her procedure today. Due to bleeding risk and pain need to monitor labs, cardiology consulted with medicine for admission. Agreed to admit overnight for observation and serial labs in the morning with serial exams of left groin. Patient remained hemodynamically stable. No signs of bleeding. Labs normal and at baseline for patient this morning. Stable to discharge home. Problems addressed as follows: Bilateral lower extremity peripheral vascular disease Subtotal occlusion of right popliteal and right superficial femoral arteries - [place] claudication class Per my review, BRITANY performed 5/10 shows 0.5 right leg, Subtotal occlusion of the right popliteal and right superficial femoral artery. Status post right SFA and right popliteal artery revascularization on 09/11. findings as follows: -- Patient found to have severe disease throughout right SFA and right popliteal artery, bilateral renal artery stenosis. Successful intravascular lithotripsy of right SFA and right popliteal artery, reduced to less than 10% with lithotripsy and balloon angioplasty. Will continue dual antiplatelet therapy with aspirin and Plavix daily for 1 month. Patient has remaining left SFA and popliteal disease, will return to clinic and consider repeat angioplasty in 2 weeks. Bilateral renal artery stenosis left greater than right -renal functions normal. No intervention at this time. Kidney function normal with BUN 10, creatinine 0.7. Blood sugar well-controlled at 108/56 on current medical management. Dyslipidemia: LDL 102.98, Start statin therapy Diabetes: -A1c well-controlled at 6.6. Continue home regimen at discharge with basal insulin and metformin. A1c goal per most recent ADA recommendations 2021 of less than 8 Hypertension/CAD: Continue home lisinopril-HCTZ combo daily Continue gabapentin 600 mg nightly for neuropathy Continue famotidine 20 mg nightly for GERD Exam Data for Last 24 hours Vital signs and Labs for Last 24 Hours: Temp Pulse Resp BP Pulse Ox O2 Del Method 98.2 F 83 20 108/56 L 96 Room Air 09/13/23 11:25 09/13/23 11:25 09/13/23 11:25 09/13/23 11:25 09/13/23 11:25 09/13/23 11:25 Laboratory Results - last 24 hr 09/12/23 16:27: POC Glucose 103 09/12/23 20:48: POC Glucose 122 H 09/13/23 05:28: POC Glucose 64 L 09/13/23 05:51: POC Glucose 76 09/13/23 06:05: WBC 9.5, RBC 4.17 L, Hgb 13.1 D, Hct 40.2, MCV 96.4, MCH 31.4 H, MCHC 32.6, RDW 13.4, Plt Count 374, MPV 7.8, Neut % (Auto) 71.5, Lymph % (Auto) 19.8, [place] % (Auto) 5.9, Eos % (Auto) 2.0, Baso % (Auto) 0.8, Neut # (Auto) 6.8, Lymph # (Auto) 1.9, [place] # (Auto) 0.6, Eos # (Auto) 0.2, Baso # (Auto) 0.1, Sodium 130 L, Potassium 4.0, Chloride 99, Carbon Dioxide 28, Anion Gap 7.0, BUN 10, Creatinine 0.70, Estimated Creat Clear 37, Estimated GFR 80, Est GFR ( Amer) 96, Glucose 99, Calcium 8.7, Magnesium 1.7, Total Bilirubin 0.5, AST 24, ALT 19, Alkaline Phosphatase 72, Total Protein 5.9 L, Albumin 3.3 L, Globulin 2.6, Albumin/Globulin Ratio 1.3 09/13/23 12:25: POC Glucose 169 H I & O for Last 24 hours: Intake & Output 09/10/23 09/11/23 09/12/23 06/21/24 23:59 23:59 23:59 23:59 Intake Total 240 / 240 Output Total 550 / 1150 600 / 600 Balance -550 / -910 -360 / -360 Weight 53.07 kg 56.744 kg Constitutional Constitutional: no acute distress, thin and chronically ill appearing *Routine HEENT Exam Head: Present normocephalic Eye: Present EOMI and PERRL ENT: Present mucous membranes moist *Routine Neck Exam Neck: Present supple; Absent lymphadenopathy *Routine Respiratory Exam Respiratory: Present CTA bilaterally; Absent rhonchi, wheezes or crackles *Routine Cardiovascular Exam Cardiovascular: Present RRR *Routine Abdominal Exam Abdominal: Present soft and normoactive bowel sounds; Absent tenderness *Routine Rectal Exam Patient deferred: visual exam *Routine Exam Patient deferred: external exam *Routine Extremities Exam Extremities: Absent cyanosis, clubbing or edema Comments: Left femoral insertion site clean dry and intact *Routine Skin Exam Skin: Present warm; Absent rash *Routine Neurological Exam Neurological: Present alert, oriented X3 and moving all extremities; Absent altered mental status Results Data Completed and Pending Labs on day of discharge: Labs from last 24 hours 09/13/23 09/13/23 09/13/23 12:25 06:05 05:51 WBC 9.5 RBC 4.17 L Hgb 13.1 D Hct 40.2 MCV 96.4 MCH 31.4 H MCHC 32.6 RDW 13.4 Plt Count 374 MPV 7.8 Neut % (Auto) 71.5 Lymph % (Auto) 19.8 [place] % (Auto) 5.9 Eos % (Auto) 2.0 Baso % (Auto) 0.8 Neut # (Auto) 6.8 Lymph # (Auto) 1.9 [place] # (Auto) 0.6 Eos # (Auto) 0.2 Baso # (Auto) 0.1 Sodium 130 L Potassium 4.0 Chloride 99 Carbon Dioxide 28 Anion Gap 7.0 BUN 10 Creatinine 0.70 Estimated Creat Clear 37 Estimated GFR 80 Est GFR ( Amer) 96 Glucose 99 POC Glucose 169 H 76 Calcium 8.7 Magnesium 1.7 Total Bilirubin 0.5 AST 24 ALT 19 Alkaline Phosphatase 72 Total Protein 5.9 L Albumin 3.3 L Globulin 2.6 Albumin/Globulin Ratio 1.3 09/13/23 09/12/23 09/12/23 05:28 20:48 16:27 WBC RBC Hgb Hct MCV MCH MCHC RDW Plt Count MPV Neut % (Auto) Lymph % (Auto) [place] % (Auto) Eos % (Auto) Baso % (Auto) Neut # (Auto) Lymph # (Auto) [place] # (Auto) Eos # (Auto) Baso # (Auto) Sodium Potassium Chloride Carbon Dioxide Anion Gap BUN Creatinine Estimated Creat Clear Estimated GFR Est GFR ( Amer) Glucose POC Glucose 64 L 122 H 103 Calcium Magnesium Total Bilirubin AST ALT Alkaline Phosphatase Total Protein Albumin Globulin Albumin/Globulin Ratio DS: Diagnosis Discharge Diagnosis (1) PVD (peripheral vascular disease): Status: Acute Code(s): I73.9 - Peripheral vascular disease, unspecified (2) Claudication: Status: Acute Code(s): I73.9 - Peripheral vascular disease, unspecified (3) Diabetes mellitus: Status: Chronic Code(s): E11.9 - Type 2 diabetes mellitus without complications (4) Renal artery stenosis: Status: Acute Code(s): I70.1 - Atherosclerosis of renal artery Meds Home Medications and Allergies Home Medications Medication Instructions Recorded Confirmed Type cholecalciferol (vitamin D3) 25 25 mcg PO DAILY 01/09/21 09/12/23 History mcg (1,000 unit) capsule famotidine 20 mg tablet 20 mg PO HS 01/09/21 09/12/23 History ferrous sulfate 325 mg (65 mg 325 mg PO BID 01/09/21 09/12/23 History iron) tablet (Feosol) metformin 1,000 mg tablet 1,000 mg PO BID Diabetes 01/09/21 09/12/23 History aspirin 81 mg chewable tablet 81 mg PO DAILY 30 days #30 tabs 09/12/23 Rx clopidogrel 75 mg tablet (Plavix) 75 mg PO DAILY 30 days #30 tabs 09/12/23 Rx gabapentin 600 mg tablet 600 mg PO HS 09/12/23 09/12/23 History insulin glargine U-300 conc 300 26 unit SQ DAILY 09/12/23 09/12/23 History unit/mL (1.5 mL) subcutaneous pen ([employer] SoloStar U-300 Insulin) lisinopril 20 1 tab PO DAILY 09/12/23 09/12/23 History mg-hydrochlorothiazide 12.5 mg tablet atorvastatin 20 mg tablet 20 mg PO HS 30 days #30 tabs 09/13/23 Rx New Prescriptions to Start Prescriptions: aspirin Ronnie Angel atorvastatin Tony Qureshi clopidogrel [Plavix] Ronnie Angel Allergies Allergy/AdvReac Type Severity Reaction Status Date / Time No Known Allergies Allergy Verified 09/03/23 09:53 Discharge Plan Disposition Patient Disposition: Home, Self-Care Condition: Fair Follow up Plan Follow up with: Ricky Lacey MD [Primary Care Provider] - 09/19/23 1:00 pm Ronnie Angel MD [Staff Physician] - 09/24/23 9:15 am Prescriptions/Medication Reconciliation: New clopidogrel [Plavix] 75 mg Tablet 75 mg PO DAILY 30 Days Qty: 30 6RF aspirin 81 mg Tablet,Chewable 81 mg PO DAILY 30 Days Qty: 30 6RF atorvastatin 20 mg Tablet 20 mg PO HS 30 Days Qty: 30 0RF Continued famotidine 20 mg tablet 20 mg PO HS metformin 1,000 mg tablet 1,000 mg PO BID Hold Instructions: Resume on 09/15/23. ferrous sulfate [Feosol] 325 mg (65 mg iron) tablet 325 mg PO BID cholecalciferol (vitamin D3) 25 mcg (1,000 unit) capsule 25 mcg PO DAILY gabapentin 600 mg tablet 600 mg PO HS Patient Comments: TAKE 1 TABLET BY MOUTH ONCE DAILY AT BEDTIME FOR NEUROPATHY FOR 90 DAYS lisinopril-hydrochlorothiazide 20-12.5 mg tablet 1 tab PO DAILY insulin glargine U-300 conc [[employer] SoloStar U-300 Insulin] 300 unit/mL (1.5 mL) insulin pen 26 unit SQ DAILY Patient Comments: INJECT 26 UNITS SUBCUTANEOUSLY ONCE A DAY FOR SUGAR Problem Reconciliation Problems Reviewed?: Yes Patient Discharge Instructions ACTIVITY: Continue current activity DIET: continue same diet Patient Instructions: DI for Cardiac Catheterization, DI for Surgical Site Infection Providers Primary Care Provider: Ricky Lacey Admit Provider: Tony Qureshi Attending Provider: Tony Qureshi
--- NOTE | 2023-09-17 12:16 | CARE MANAGER ---
Attempted to contact patient related to hospital discharge x2. Left VM message. ARIEL Parker
== END 2023-09-13 12:50 | disposition home or self-care (01) ==
LOC: 2ND 11:51
PROVIDERS: Internal Medicine; Admitting Provider Internal Medicine Adolescent Medicine; PCP Internal Medicine; Visit Provider Internal Medicine Adolescent Medicine
DX: I70.211 Atherosclerosis of native arteries of extremities with intermittent claudication, right leg; R53.83 Other fatigue; E11.9 Type 2 diabetes mellitus without complications; I70.1 Atherosclerosis of renal artery; Z79.4 Long term (current) use of insulin; Z79.899 Other long term (current) drug therapy; I77.1 Stricture of artery
CPT/HCPCS: 36415; 75625; 75716; 80048; 80053; 82962; 83036; 83735; 85025; 85347; 99152; 99153; C1725; C1766; C1769; C1894; C2623; C9764; G0378; J1644; J2250; J2720; J3010; Q9966

== ENCOUNTER 2023-09-24 10:48 | Day surgery (SDC) | payer MEDICARE, SELFPAY ==
[2023-09-24] VITALS (11 sets, daily range): BP systolic 117–160; BP diastolic 49–79; PULSE 48–104; RESP 16–18; O2SAT 96–100; BMI 20.1
--- NOTE | 2023-09-24 07:09 | IR_ITS ---
APPROVED REPORT Patient Location: [facility] Consultant: JAVID Hahn RT (R) PROCEDURES Selective angiogram of the left superficial femoral artery and left popliteal artery intravascular lithotripsy to the left popliteal artery and left superficial femoral artery Drug-coated balloon angioplasty to the left popliteal artery and left superficial femoral artery Left selective renal angiogram Bare-metal stent deployment to the left renal artery INDICATION Peripheral artery disease involving the left SFA and left popliteal artery, Calcification severe stenosis in the left SFA left popliteal artery, Antonio claudication class III-IV, Left renal artery stenosis, Renovascular hypertension Informed consent was obtained prior to the procedure. COMPLICATIONS NONE Estimated Blood Loss: LESS THAN 10 ML TECHNIQUE 1% lidocaine used to anesthetize the left femoral groin. The right femoral artery was accessed via the Seldinger technique. A 6 Qatari sheath was placed in the right femoral artery and a 5 Qatari rim catheter was used to cannulate the left common iliac artery. An advantage wire was then placed under fluoroscopic guidance into the left SFA. The short sheath was exchanged for a 45 cm 6 Qatari destination sheath. Therapeutic heparin was administered giving a therapeutic ACT. An 014 wire was placed distally in the popliteal artery and a 5 mm x 60 mm intra vascular lithotripsy balloon was deployed at 4, 6 and then 10 garland up and down the SFA and popliteal artery predilating and reducing the calcified stenosis. Following this a 5 mm x 250 mm drug-coated balloon was placed into the proximal popliteal artery extending back to the left SFA and deployed at 11 garland for 3 minutes. Residual stenosis was identified into the mid popliteal artery therefore an additional 5 mm x 120 mm drug-coated balloon was deployed in the mid popliteal artery at 11 garland for 3 minutes reducing the stenosis. Excellent angiographic results were obtained with wide patency of the left SFA and left popliteal artery. Following this the destination sheath was exchanged for a short 6 Qatari sheath and a short TALAVERA guide catheter was placed in the left renal artery followed by angiography. A BMW wire was placed distally and a 6 mm x 15 mm Herculink stent was placed in the ostial proximal segment at 16 garland reducing the severe stenosis to 0%. Excellent angiographic results were obtained. At the end the procedure the apparatus was removed the groin was reprepped closure change sheath was removed good hemostasis was achieved using Perclose device patient was transferred to postop holding in stable condition ANGIOGRAPHIC RESULTS Left SFA and left popliteal artery has diffuse severe atheromatous plaque and calcifications Left renal artery has an ostial 70 to 80% stenosis IMPRESSION Severe disease to the left SFA and left popliteal artery with successful intravascular lithotripsy followed by drug-coated balloon angioplasty Severe left renal artery stenosis with successful stenting of the left renal artery severe disease reduced to 0% with 1 balloon mounted bare-metal stent PLAN 1. Continue dual antiplatelet therapy 2. Risk factor modification 3. Cardiac rehabilitation 4. LDL less than 55 to be achieved with high intensity statin Electronically signed by : Ronnie Angel MD 09/24/2023 13:01:43
[2023-09-24 11:24] LABS: Basophils # 0.1 K/mm3 (0-0.2); Basophils % 1.4 % (0.1-2.0); Eosinophils # 0.4 K/mm3 (0.0-0.4); Eosinophils % 4.9 % (0.1-12.0); Hematocrit 43.9 % (37.0-47.0); Hemoglobin 14.6 g/dL (12.2-16.2); Lymphocytes # 2.2 K/mm3 (0.7-4.5); Lymphocytes % 28.7 % (10-50); Mean Corpuscular HGB Conc 33.2 g/dL (31.8-35.4); Mean Corpuscular Hemoglobin 32.1 pg (27.0-31.2); Mean Corpuscular Volume 96.6 fl (81-99); Mean Platelet Volume 7.4 fl (7.4-10.4); Monocytes # 0.5 K/mm3 (0.1-1.0); Monocytes % 6.7 % (1.7-9.3); Neutrophils # 4.4 K/mm3 (1.8-7.8); Neutrophils % 58.4 % (37.0-80.0); Platelet Count 476 K/mm3 (142-424); Red Blood Count 4.54 M/mm3 (4.20-5.40); Red Cell Distribution Width 13.5 % (11.5-17.5); White Blood Count 7.6 K/mm3 (4.8-10.8)
[2023-09-24 11:27] LABS: Chloride 98 mmol/L (98-107); Potassium 3.7 mmoL/L (3.5-5.1); Sodium 134 mmol/L (136-145)
[2023-09-24 11:30] LABS: Anion Gap 10.7 mEq/L (5-15); Blood Urea Nitrogen 11 mg/dl (7-17); Calcium 9.6 mg/dl (8.4-10.2); Carbon Dioxide 29 mmol/L (22.0-30.0); Creatinine Clearance Estimated 33 mL/min (50-200); Estimated Glomerular Filt Rate 80 ml/min (>60); GFR (African American) 96 ML/MIN (>60); Glucose 115 mg/dl (74-100)
[2023-09-24] MEDS: diphenhydrAMINE 50MG/ML VIAL 50 MG IV (11:55)
[2023-09-24] MEDS: HEPARIN 1,000 UNITS/500ML NS (CATH LAB) 3000 UNIT IV (11:55)
[2023-09-24] MEDS: LIDOCAINE 1% 10ML MDV 20 ML IJ (11:55)
[2023-09-24] MEDS: 0.9 % SODIUM CHLORIDE 500 ML 25 ML IV (11:55)
[2023-09-24] MEDS: HEPARIN 1,000 UNITS/ML 10ML VIAL (CATH LAB) 10000 UNIT IV (12:15)
[2023-09-24] MEDS: MIDAZOLAM HCL 1MG/1ML 5ML VIAL 1 MG IV (12:45)
[2023-09-24] MEDS: FENTANYL 100MCG/2ML VIAL 50 MCG IV (12:46)
[2023-09-24] MEDS: IOHEXOL-240 100ML BOTTLE 120 ML IV (13:31)
== END 2023-09-24 15:16 | disposition home or self-care (01) ==
PROVIDERS: PCP Internal Medicine; Visit Provider Internal Medicine
DX: I70.212 Atherosclerosis of native arteries of extremities with intermittent claudication, left leg (principal); R53.83 Other fatigue; I70.1 Atherosclerosis of renal artery; E11.9 Type 2 diabetes mellitus without complications; I10 Essential (primary) hypertension; Z79.4 Long term (current) use of insulin; Z79.899 Other long term (current) drug therapy
CPT/HCPCS: 37236; 80048; 85025; 99152; 99153; C1725; C1760; C1766; C1769; C1876; C1887; C1894; C9765; J1644; J2250; J3010; Q9966

== ENCOUNTER 2023-09-27 08:48 | Outpatient (CLI) | payer MEDICARE, SELFPAY ==
[2023-09-27 09:49] LABS: Basophils # 0.1 K/mm3 (0-0.2); Basophils % 1.1 % (0.1-2.0); Eosinophils # 0.6 K/mm3 (0.0-0.4); Eosinophils % 6.7 % (0.1-12.0); Hematocrit 38.3 % (37.0-47.0); Hemoglobin 13.1 g/dL (12.2-16.2); Lymphocytes # 1.8 K/mm3 (0.7-4.5); Lymphocytes % 18.4 % (10-50); Mean Corpuscular HGB Conc 34.2 g/dL (31.8-35.4); Mean Corpuscular Hemoglobin 32.9 pg (27.0-31.2); Mean Corpuscular Volume 96.1 fl (81-99); Mean Platelet Volume 7.6 fl (7.4-10.4); Monocytes # 0.6 K/mm3 (0.1-1.0); Monocytes % 5.8 % (1.7-9.3); Neutrophils # 6.5 K/mm3 (1.8-7.8); Neutrophils % 68.1 % (37.0-80.0); Platelet Count 405 K/mm3 (142-424); Red Blood Count 3.99 M/mm3 (4.20-5.40); Red Cell Distribution Width 13.7 % (11.5-17.5); White Blood Count 9.5 K/mm3 (4.8-10.8)
[2023-09-27 10:09] LABS: Anion Gap 10.6 mEq/L (5-15); Blood Urea Nitrogen 10 mg/dl (7-17); Calcium 9.3 mg/dl (8.4-10.2); Carbon Dioxide 25 mmol/L (22.0-30.0); Chloride 98 mmol/L (98-107); Estimated Glomerular Filt Rate 68 ml/min (>60); GFR (African American) 82 ML/MIN (>60); Glucose 223 mg/dl (74-100); Potassium 4.6 mmoL/L (3.5-5.1); Sodium 129 mmol/L (136-145)
== END 2023-09-27 23:59 | disposition home or self-care (01) ==
LOC: LAB 08:52
PROVIDERS: PCP Internal Medicine; Visit Provider Internal Medicine
DX: I25.10 Atherosclerotic heart disease of native coronary artery without angina pectoris (principal)
CPT/HCPCS: 36415; 80048; 85025

== ENCOUNTER 2023-10-09 09:33 | Outpatient (CLI) | payer MEDICARE, SELFPAY ==
[2023-10-09 11:05] LABS: Alanine Aminotransferase 19 U/L (12-78); Albumin Level 3.7 g/dl (3.5-5.0); Alkaline Phosphatase 106 U/L (38-126); Anion Gap 10.4 mEq/L (5-15); Aspartate Amino Transferase 22 U/L (14-36); Bilirubin,Indirect 0.5 mg/dL (0.0-0.9); Bilirubin,Total 0.5 mg/dl (0.2-1.3); Bilirubin,Unconjugated 0.6 mg/dL (0.0-1.1); Blood Urea Nitrogen 13 mg/dl (7-17); Calcium 9.5 mg/dl (8.4-10.2); Carbon Dioxide 27 mmol/L (22.0-30.0); Chloride 99 mmol/L (98-107); Chol/HDL Ratio 2.3 (1-3.5); Cholesterol 147 mg/dl (140-200); Estimated Glomerular Filt Rate 80 ml/min (>60); GFR (African American) 96 ML/MIN (>60); Glucose 270 mg/dl (74-100); HDL Cholesterol 65 mg/dl (40-60); Magnesium 1.8 mg/dl (1.6-2.3); Potassium 4.4 mmoL/L (3.5-5.1); Sodium 132 mmol/L (136-145); Total Protein,Serum 6.1 g/dl (6.3-8.2); Triglycerides 135 mg/dl (30-150); VLDL Cholesterol 27 mg/dL (0-40)
[2023-10-09 11:16] LABS: Direct LDL Cholesterol 51.22 mg/dL (100-129)
== END 2023-10-09 23:59 | disposition home or self-care (01) ==
LOC: LAB 09:34
PROVIDERS: PCP Internal Medicine; Visit Provider Nurse Practitioner
DX: E87.1 Hypo-osmolality and hyponatremia (principal); I10 Essential (primary) hypertension; E13.69 Other specified diabetes mellitus with other specified complication
CPT/HCPCS: 36415; 80048; 80061; 80076; 83735; 84439; 84443

== ENCOUNTER 2024-03-23 13:55 | Outpatient (CLI) | payer MEDICARE, SELFPAY ==
[2024-03-23 12:54] LABS: Anion Gap 12.1 mEq/L (5-15); Blood Urea Nitrogen 11 mg/dl (7-17); Carbon Dioxide 29 mmol/L (22.0-30.0); Chloride 95 mmol/L (98-107); Estimated Glomerular Filt Rate 68 ml/min (>60); GFR (African American) 82 ML/MIN (>60); Glucose 146 mg/dl (74-100); Potassium 4.1 mmoL/L (3.5-5.1); Sodium 132 mmol/L (136-145)
== END 2024-03-23 23:59 | disposition home or self-care (01) ==
LOC: LAB.DROPOF 13:55
PROVIDERS: PCP Internal Medicine; Visit Provider Internal Medicine
DX: E87.1 Hypo-osmolality and hyponatremia (principal); I10 Essential (primary) hypertension
CPT/HCPCS: 80048

== ENCOUNTER 2024-03-26 16:46 | Outpatient (CLI) | payer MEDICARE, SELFPAY ==
[2024-03-26 17:01] LABS: Creatinine,Urine Random 32 mg/dL (Not Estab.)
[2024-03-26 17:05] LABS: Microalbumin/Creatinine Ratio 18.7
== END 2024-03-26 23:59 | disposition home or self-care (01) ==
LOC: LAB.DROPOF 16:46
PROVIDERS: PCP Internal Medicine; Visit Provider Internal Medicine
DX: E11.59 Type 2 diabetes mellitus with other circulatory complications (principal); Z79.84 Long term (current) use of oral hypoglycemic drugs; Z79.4 Long term (current) use of insulin
CPT/HCPCS: 82043; 82570

== ENCOUNTER 2024-05-04 11:30 | Outpatient (CLI) | payer MEDICARE, SELFPAY | END 2024-05-04 23:59 | disposition home or self-care (01) | LOC: LAB.DROPOF 05-05 10:37 | PROVIDERS: PCP Internal Medicine; Visit Provider Internal Medicine | DX: L03.116 Cellulitis of left lower limb (principal); L97.429 Non-pressure chronic ulcer of left heel and midfoot with unspecified severity | CPT/HCPCS: 87070; 87077; 87186; 87205 ==

== ENCOUNTER 2024-06-23 09:15 | Outpatient (CLI) | payer MEDICARE, SELFPAY ==
[2024-06-23 17:28] LABS: Basophils # 0.1 K/mm3 (0-0.2); Basophils % 0.9 % (0.1-2.0); Eosinophils # 0.2 K/mm3 (0.0-0.4); Eosinophils % 2.4 % (0.1-12.0); Hematocrit 44.4 % (37.0-47.0); Hemoglobin 14.8 g/dL (12.2-16.2); Lymphocytes # 1.2 K/mm3 (0.7-4.5); Lymphocytes % 17.2 % (10-50); Mean Corpuscular HGB Conc 33.3 g/dL (31.8-35.4); Mean Corpuscular Volume 95.9 fl (81-99); Mean Platelet Volume 8.7 fl (7.4-10.4); Monocytes # 0.5 K/mm3 (0.1-1.0); Monocytes % 7.8 % (1.7-9.3); Neutrophils # 4.8 K/mm3 (1.8-7.8); Neutrophils % 71.4 % (37.0-80.0); Platelet Count 354 K/mm3 (142-424); Red Blood Count 4.63 M/mm3 (4.20-5.40); Red Cell Distribution Width 12.4 % (11.5-17.5); White Blood Count 6.7 K/mm3 (4.8-10.8)
[2024-06-23 19:56] LABS: Hemoglobin A1C 7.6 % (4.0-6.0)
[2024-06-23 20:22] LABS: Albumin Level 3.9 g/dl (3.5-5.0); Chloride 97 mmol/L (98-107); Potassium 4.2 mmoL/L (3.5-5.1); Sodium 135 mmol/L (136-145)
[2024-06-23 20:24] LABS: Alanine Aminotransferase 17 U/L (12-78); Aspartate Amino Transferase 25 U/L (14-36); Blood Urea Nitrogen 11 mg/dl (7-17); Estimated Glomerular Filt Rate 79 ml/min (>60); GFR (African American) 96 ML/MIN (>60)
[2024-06-23 20:25] LABS: Albumin/Globulin Ratio 1.6 (1.1-1.8); Alkaline Phosphatase 94 U/L (38-126); Anion Gap 13.2 mEq/L (5-15); Bilirubin,Total 0.8 mg/dl (0.2-1.3); Calcium 9.2 mg/dl (8.4-10.2); Carbon Dioxide 29 mmol/L (22.0-30.0); Chol/HDL Ratio 1.9 (1-3.5); Cholesterol 126 mg/dl (140-200); Globulin 2.4 g/dL (1.3-3.2); Glucose 236 mg/dl (74-100); HDL Cholesterol 67 mg/dl (40-60); Total Protein,Serum 6.3 g/dl (6.3-8.2); Triglycerides 101 mg/dl (30-150); VLDL Cholesterol 20 mg/dL (0-40)
[2024-06-23 20:36] LABS: Direct LDL Cholesterol 36.58 mg/dL (100-129)
== END 2024-06-23 23:59 | disposition home or self-care (01) ==
LOC: LAB.DROPOF 06-24 13:24
PROVIDERS: PCP Internal Medicine; Visit Provider Internal Medicine
DX: E11.42 Type 2 diabetes mellitus with diabetic polyneuropathy (principal); E11.59 Type 2 diabetes mellitus with other circulatory complications; I73.9 Peripheral vascular disease, unspecified; I10 Essential (primary) hypertension; E78.5 Hyperlipidemia, unspecified; M15.0 Primary generalized (osteo)arthritis; M51.369 Other intervertebral disc degeneration, lumbar region without mention of lumbar back pain or lower extremity pain
CPT/HCPCS: 80053; 80061; 83036; 85025

== ENCOUNTER 2024-09-07 14:56 | Outpatient (CLI) | payer MEDICARE, SELFPAY ==
[2024-09-07 17:14] LABS: Microscopic, Urine URINE MICROSCOPIC (MICROSCOPIC)
[2024-09-07 17:19] LABS: Appearance,Urine CLEAR (Clear); Bilirubin,Urine Negative (Negative); Blood, Urine TRACE-I (Negative); Color,Urine YELLOW (Yellow); Glucose,Urine (UA) 3+ (Negative); Ketones,Urine Negative (Negative); Leukocyte Esterase,Urine 1+ (Negative); Nitrate,Urine Negative (Negative); Protein,Urine Negative (Negative); Specific Gravity, Urine <= 1.005 (1.005-1.030); Urobilinogen,Urine 0.2 EU/dl (0.2)
[2024-09-07 17:45] LABS: Bacteria,Urine 3+ /lpf; RBC,Urine Occasional #/hpf (0-3); WBC,Urine TNTC #/hpf (0-3)
== END 2024-09-07 23:59 | disposition home or self-care (01) ==
LOC: INF 14:57
PROVIDERS: PCP Internal Medicine; Visit Provider Internal Medicine
DX: R33.9 Retention of urine, unspecified (principal)
CPT/HCPCS: 81001; 87086; 87088; 87186

== ENCOUNTER 2024-09-22 15:32 | Outpatient (CLI) | payer MEDICARE, SELFPAY | END 2024-09-22 23:59 | disposition home or self-care (01) | LOC: LAB.DROPOF 15:33 | PROVIDERS: PCP Internal Medicine; Visit Provider Internal Medicine | DX: N39.0 Urinary tract infection, site not specified (principal) | CPT/HCPCS: 87086; 87088; 87186 ==

== ENCOUNTER 2024-09-23 09:56 | Outpatient (CLI) | payer MEDICARE, SELFPAY ==
--- NOTE | 2024-09-23 10:15 | XR_ITS ---
FINAL REPORT CLINICAL HISTORY: Rales right chest, cough COMPARISON: 02/09/2023 FINDINGS: CHEST 2 VIEWS PA AND LATERAL The heart is normal in size. The mediastinum is unremarkable. There are chronic changes in both lungs. There is thoracic scoliosis convex to the left measuring 20 degrees. There is no pneumothorax. IMPRESSION: No acute process. Reviewed, Interpreted and Dictated by Ken Varela MD Transcribed by Akilah Whitaker Authenticated and [facility]
[2024-09-23 10:18] LABS: Hematocrit 36.3 % (37.0-47.0); Hemoglobin 13.1 g/dL (12.2-16.2); Immature Granulocytes % 1.0 %; Mean Corpuscular HGB Conc 36.1 g/dL (31.8-35.4); Mean Corpuscular Hemoglobin 33.0 pg (27.0-31.2); Mean Corpuscular Volume 91.4 fl (81-99); Nucleated Red Blood Cells % 0 %; Platelet Count 303 K/mm3 (142-424); Red Blood Count 3.97 M/mm3 (4.20-5.40); Red Cell Distribution Width-SD 40.6 fL
[2024-09-23 10:30] LABS: White Blood Count 32.2 K/mm3 (4.8-10.8)
[2024-09-23 10:34] LABS: Anion Gap 12.2 mEq/L (5-15); Blood Urea Nitrogen 14 mg/dl (7-17); Calcium 9.6 mg/dl (8.4-10.2); Carbon Dioxide 27 mmol/L (22.0-30.0); Chloride 91 mmol/L (98-107); Creatinine,Serum 0.60 mg/dl (0.52-1.04); Estimated Glomerular Filt Rate 95 ml/min (>60); GFR (African American) 115 ML/MIN (>60); Glucose 257 mg/dl (74-100); Potassium 4.2 mmoL/L (3.5-5.1); Sodium 126 mmol/L (136-145)
[2024-09-23 10:37] LABS: RBC Morphology Normal; Total Cells Counted 100
== END 2024-09-23 23:59 | disposition home or self-care (01) ==
LOC: LAB 09:57
PROVIDERS: PCP Internal Medicine; Visit Provider Internal Medicine
DX: R09.89 Other specified symptoms and signs involving the circulatory and respiratory systems (principal); R11.10 Vomiting, unspecified; R53.1 Weakness
CPT/HCPCS: 36415; 71046; 80048; 85007; 85025; 85027

== ENCOUNTER 2024-09-23 11:25 | Observation (INO) | payer MEDICARE, SELFPAY ==
[2024-09-23] VITALS (28 sets, daily range): BP systolic 102–170; BP diastolic 39–117; PULSE 77–100; RESP 15–19; TEMP 36.8–37.3; O2SAT 92–97; BMI 21.5; BMI 22.3
--- NOTE | 2024-09-23 12:04 | PC.NURSE ---
Received report from ARIEL García.
[2024-09-23 12:48] LABS: Hematocrit 37.4 % (37.0-47.0); Hemoglobin 12.8 g/dL (12.2-16.2); Immature Granulocytes % 1.6 %; Mean Corpuscular HGB Conc 34.2 g/dL (31.8-35.4); Mean Corpuscular Hemoglobin 31.5 pg (27.0-31.2); Mean Corpuscular Volume 92.1 fl (81-99); Nucleated Red Blood Cells % 0 %; Platelet Count 323 K/mm3 (142-424); Red Blood Count 4.06 M/mm3 (4.20-5.40); Red Cell Distribution Width-SD 41.1 fL
[2024-09-23 12:49] LABS: Microscopic, Urine URINE MICROSCOPIC (MICROSCOPIC)
[2024-09-23 12:51] LABS: Color,Urine YELLOW (Yellow); Glucose,Urine (UA) 3+ (Negative); Ketones,Urine 1+ (Negative); Leukocyte Esterase,Urine 1+ (Negative); PH,Urine 6.0 (5.0-8.5); Protein,Urine TRACE (Negative); Specific Gravity, Urine 1.015 (1.005-1.030); Urobilinogen,Urine 0.2 EU/dl (0.2)
[2024-09-23 12:52] LABS: Albumin Level 4.0 g/dl (3.5-5.0); Chloride 91 mmol/L (98-107); Potassium 4.3 mmoL/L (3.5-5.1); Sodium 129 mmol/L (136-145)
[2024-09-23 12:54] LABS: Alanine Aminotransferase 23 U/L (12-78); Anion Gap 15.3 mEq/L (5-15); Aspartate Amino Transferase 27 U/L (14-36); Blood Urea Nitrogen 15 mg/dl (7-17); Carbon Dioxide 27 mmol/L (22.0-30.0); Creatinine Clearance Estimated 33 mL/min (50-200); Creatinine,Serum 0.70 mg/dl (0.52-1.04); Estimated Glomerular Filt Rate 79 ml/min (>60); GFR (African American) 96 ML/MIN (>60)
[2024-09-23 12:55] LABS: Albumin/Globulin Ratio 1.5 (1.1-1.8); Alkaline Phosphatase 92 U/L (38-126); Bilirubin,Total 1.2 mg/dl (0.2-1.3); Calcium 9.3 mg/dl (8.4-10.2); Globulin 2.7 g/dL (1.3-3.2); Glucose 245 mg/dl (74-100); Lipase 13 U/L (23-300); Magnesium 1.4 mg/dl (1.6-2.3); Total Protein,Serum 6.7 g/dl (6.3-8.2)
[2024-09-23 12:57] LABS: White Blood Count 36.6 K/mm3 (4.8-10.8)
[2024-09-23 13:02] LABS: Bilirubin,Urine Negative (Negative)
--- NOTE | 2024-09-23 13:02 | CT_ITS ---
PROCEDURE INFORMATION: Exam: CTA Chest With Contrast Exam date and time: 09/23/2024 1:55 PM Age: 88 years old Clinical indication: Shortness of breath; Additional info: Sepsis TECHNIQUE: Imaging protocol: Computed tomographic angiography of the chest with contrast. Exam focused on the arteries. 3D rendering (Not supervised by radiologist): MIP and/or 3D reconstructed images were created by the technologist. Radiation optimization: All CT scans at this facility use at least one of these dose optimization techniques: automated exposure control; mA and/or kV adjustment per patient size (includes targeted exams where dose is matched to clinical indication); or iterative reconstruction. Contrast material: ISOVUE; Contrast volume: 75 ml; Contrast route: INTRAVENOUS (IV); COMPARISON: CT ANGIO ABDOMEN PELVIS 01/31/2022 5:42 PM FINDINGS: Pulmonary arteries: No filling defects suspicious for pulmonary emboli. Aorta: Unremarkable. No aortic aneurysm. No aortic dissection. Lungs: Few scattered ground-glass nodules in the right upper lobe, for example measuring 11 x 12 mm on image 35 series 6. Mild diffuse interlobular and intra lobular septal thickening. Nodule measuring 7 x 9 mm in the right middle lobe measured 4 x 10 mm on 01/31/2022 study. Calcified granuloma subpleural left lower lobe. Pleural spaces: Unremarkable. No pneumothorax. No pleural effusion. Heart: Cardiomegaly. No pericardial fluid. Mild coronary vessel atherosclerosis. Lymph nodes: Right hilar lymph node measuring 16 mm in short axis. Subcarinal node measuring 18 mm in short axis. Left hilar node measuring 13 mm in short axis. Additional small AP window and paratracheal station nodes, for example measuring up to 14 mm in the right lower paratracheal station. These are probably reactive. Bones/joints: Unremarkable. No acute fracture. Soft tissues: Unremarkable. IMPRESSION: 1. No filling defects suspicious for pulmonary emboli. 2. Mild pulmonary edema/CHF. 3. Cardiomegaly. 4. Mediastinal and bilateral hilar nodes are present, likely reactive. 5. Ground-glass and solid pulmonary nodules in the right lung, measuring up to 10 mm in the right middle lobe. May be infectious or inflammatory.For patients at low risk (minimal or absent history of smoking and of other known risk factors), recommend CT Chest at 3-6 months, then consider CT Chest at 18-24 months. For patients at high risk (history of smoking or of other known risk factors), recommend CT Chest at 3-6 months, then CT Chest at 18-24 months. (Reference: Diego) REFERENCES: Diego Ortiz, et al. Guidelines for Management of Incidental Pulmonary Nodules Detected on CT Images: From the Fleischner Society 2017. Radiology. 2017;284(1):228-243.
--- NOTE | 2024-09-23 13:02 | CT_ITS ---
PROCEDURE INFORMATION: Exam: CT Abdomen And Pelvis With Contrast Exam date and time: 09/23/2024 1:55 PM Age: 88 years old Clinical indication: Other: Sepsis TECHNIQUE: Imaging protocol: Computed tomography of the abdomen and pelvis with contrast. 3D rendering (Not supervised by radiologist): MIP and/or 3D reconstructed images were created by the technologist. Radiation optimization: All CT scans at this facility use at least one of these dose optimization techniques: automated exposure control; mA and/or kV adjustment per patient size (includes targeted exams where dose is matched to clinical indication); or iterative reconstruction. Contrast material: ISOVUE; Contrast volume: 75 ml; Contrast route: IV; COMPARISON: CT ABDOMEN PELVIS WO CON 12/06/2021 11:09 AM FINDINGS: Lungs: See Heart finding. Heart: Cardiomegaly. Mild diffuse interlobular and intra lobular septal thickening as can be seen with interstitial pulmonary edema. Liver: Normal. No mass. Gallbladder and biliary ducts: Cholelithiasis. Mildly distended gallbladder without acute inflammatory change. Pancreas: Normal. No ductal dilation. Spleen: Normal. No splenomegaly. Adrenal glands: Redemonstrated bilateral adrenal adenomas, measuring 1.9 x 2.3 cm on the right, and 9 x 11 mm on the left. Kidneys and ureters: Normal. No hydronephrosis. Stomach and bowel: No bowel obstruction or acute inflammation.. Appendix: No evidence of appendicitis. Intraperitoneal space: Unremarkable. No free air. No significant fluid collection. Vasculature: Unremarkable. No abdominal aortic aneurysm. Lymph nodes: Unremarkable. No enlarged lymph nodes. Urinary bladder: Moderate circumferential bladder wall thickening. Mild mucosal enhancement in the bladder. No distinct perivesicular stranding. Reproductive: Status post hysterectomy. Bilateral adnexae are unremarkable.. Bones/joints: Mild diffuse osseous heterogeneity. No acute osseous abnormality. Dextro scoliosis of the lumbar spine. Soft tissues: Unremarkable. IMPRESSION: 1. No bowel obstruction or acute inflammation.. 2. Moderate circumferential bladder wall thickening. Mild mucosal enhancement in the bladder. No distinct perivesicular stranding. Recommend clinical correlation if there is concern for cystitis. 3. Cardiomegaly. Mild diffuse interlobular and intra lobular septal thickening as can be seen with interstitial pulmonary edema.
[2024-09-23 13:04] LABS: WBC,Urine 50-100 #/hpf (0-3)
[2024-09-23 13:05] LABS: Bacteria,Urine Trace /lpf; Squamous Epithelial Cell,Urine 20-50 #/hpf (0-5)
[2024-09-23 13:13] LABS: Adenovirus,PCR Not Detected (NotDetected); Chlamydophila Pneumoniae, PCR Not Detected (NotDetected); Coronavirus 19, PCR Not Detected (NotDetected); Coronovirus HKU1,PCR Not Detected (NotDetected); Influenza A, PCR Not Detected (NotDetected); Influenza AH1, 2009 Not Detected (NotDetected); Influenza AH1, PCR Not Detected (NotDetected); Influenza AH3,PCR Not Detected (NotDetected); Influenza B, PCR Not Detected (NotDetected); Mycoplasma Pneumoniae, PCR Not Detected (NotDetected); Parainfluenza 1, PCR Not Detected (NotDetected); Parainfluenza 2, PCR Not Detected (NotDetected); Parainfluenza 3, PCR Not Detected (NotDetected); Parainfluenza 4, PCR Not Detected (NotDetected)
[2024-09-23 13:17] LABS: Creatine Kinase 27 U/L (30-135)
[2024-09-23 13:19] LABS: Activated Partial Thrombo Time 25.0 seconds (22.8-30.6); INR 0.98 (0.9-1.1); Prothrombin Time 10.9 seconds (10.1-12.5)
[2024-09-23 13:22] LABS: C-Reactive Protein 38.8 mg/L (0-4)
[2024-09-23] MEDS: CEFEPIME HCL 2 GM in 0.9 % SODIUM CHLORIDE 100 ML IV (13:22)
[2024-09-23] MEDS: LACTATED RINGERS 775 ML IV (13:23)
--- NOTE | 2024-09-23 13:30 | ED_ITS ---
<Statement entered by Kye Jenkins MD - 09/23/24 17:14> I was consulted by the MIGEL, and we discussed the complexity of problems being addressed. I approved the treatment and management plan for this patient's care in the emergency department, thus performing a substantial portion of the medical decision making. Kye Jenkins MD Discharge Plan Disposition Patient Disposition: Admitted Clinical Impressions Clinical Impression: UTI (urinary tract infection) Discharge ED Provider: Kye Jenkins General Adult HPI <Elle Moura (ED), TAFE REGISTRAR - Last Filed: 09/23/24 16:22> General Chief complaint: Recheck/Abnormal Lab/Rx Stated complaint: Ref: Abhijit. Pneumonia Time Seen by Provider: 09/23/24 12:09 Mode of Arrival: Wheelchair Source of Information: Patient Description of Symptoms (Recalled from ER Triage Doc. by RN): patient was at dr lacey office for routine visit she reports taking her oral antibitic this am for uti and vomitted. she had chest xray done and blood work, and confirmed pneumonia was sent her by PCP she denies any shortness of breath History of Present Illness HPI narrative: 88-year-old female presents to the ED today for complaint of vomiting after starting an antibiotic for UTI. She went to Dr. Lacey and Dr. Lacey thinks that she has aspiration pneumonia so sent her to the ED for evaluation. She denies much cough. No fevers or chills. No other symptoms at this time Related Data Home Medications ?Medication ?Instructions ?Recorded ?Confirmed cholecalciferol (vitamin D3) 25 25 mcg PO DAILY 09/23/24 mcg (1,000 unit) capsule famotidine 20 mg tablet 20 mg PO HS 01/09/21 5 ferrous sulfate 325 mg (65 mg 325 mg PO BID 01/09/21 0 09/23/24 iron) tablet (Feosol) metformin 1,000 mg tablet 1,000 mg PO BID Diabetes 09/23/24 gabapentin 600 mg tablet 600 mg PO HS 09/12/23 blood sugar diagnostic (True #10 ea 12/19/23 09/23/24 Metrix Glucose Test Strip) blood-glucose meter (True Metrix #1 ea 12/19/23 Air Glucose Meter) loperamide 2 mg capsule mg PO 12/19/23 09/23/24 Previous Rx's ?Medication ?Instructions ?Recorded aspirin 81 mg chewable tablet 81 mg PO DAILY 30 days # 30 tabs 09/12/23 clopidogrel 75 mg tablet (Plavix) 75 mg PO DAILY 30 da ys #30 tabs 09/12/23 atorvastatin 20 mg tablet 20 mg PO HS 30 days #90 tabs 10/15/23 lisinopril 20 mg tablet 20 mg PO DAILY #90 tabs 06/16 insulin glargine U-300 conc 300 26 unit (0.0867 mL) SQ DAILY #4.5 05/11/24 unit/mL (1.5 mL) subcutaneous pen mL (Toujeo SoloStar U-300 Insulin) insulin syringe-needle U-100 1 mL #100 ea 05/11/24 31 gauge x 15/64 (BD Veo Insulin Syringe Ultra-Fine) pen needle, diabetic 32 gauge x #100 ea 05/15/24 5/32 (BD Soraya 2nd Gen Pen Needle) levofloxacin 250 mg tablet 250 mg PO DAILY #7 tabs ondansetron 4 mg disintegrating 4 mg PO Q8H PRN nausea and 09/14/24 tablet vomiting #30 tabs nitrofurantoin 100 mg PO BID #14 caps 09/22 monohydrate/macrocrystals 100 mg capsule (Macrobid) Allergies Allergy/AdvReac Type Severity Reaction Status Date / Time No Known Allergies Allergy Verified 09/23/24 09:34 [facility] <Elle Moura (ED), TAFE REGISTRAR - Last Filed: 09/23/24 16:22> [facility] Disclaimer: The information contained in this section may have been updated after the patient was seen, as this information can be updated by other users. Medical History Diastolic dysfunction PVD (peripheral vascular disease) Fatigue Social History Smoking Status: Never smoker alcohol intake: never substance use type: denies use current occupational status: unemployed Travel in the last 8 weeks?: Inside the [place] household members: spouse housing: house caffeine: Yes Have you lived/traveled outside [place] in past 30 days?: No Contact w/someone who lives/traveled outside US past 30 days?: No Exposure to someone with infectious disease in past 14 days?: No Do you have a fever (greater than 100.4 F or 38 C)?: No Have you tested positive for COVID-19?: No Exposed to someone with COVID-19 in past 14 days?: No Do you have a sore throat?: No Do you have a cough?: No Do you have any weakness?: No Do you have any diarrhea?: No Are you experiencing any unusual bleeding?: No Do you have any muscle aches/pain?: No Do you have any abdominal pain?: No Are you experiencing loss of taste or smell?: No Other Medical History Have you received the Flu Vaccine for this season: No Have you received the Pneumonia Vaccine: Yes <Elle Moura (ED), TAFE REGISTRAR - Last Filed: 09/23/24 16:22> ROS Obtained: Yes Systems reviewed as appropriate & no additional complaints except as documented Constitutional Constitutional: Reports as per HPI Physical Exam <Elle Moura (ED), TAFE REGISTRAR - Last Filed: 09/23/24 16:22> General General appearance: alert and in no apparent distress Head Head exam: normocephalic Eye Eye exam: Present PERRL and EOMI ENT ENT exam: Present normal oropharynx and mucous membranes moist Neck Neck exam: Present normal inspection, full ROM and trachea midline Respiratory Respiratory exam: Present normal lung sounds bilaterally Cardiovascular Cardiovascular exam: Present regular rate, normal rhythm, normal heart sounds, +S1 and +S2 Abdominal Exam Abdominal exam: Present soft and normal bowel sounds Extremities Exam Extremities exam: Present normal inspection, full ROM and normal capillary refill Neurological Exam Neurological exam: Present alert, oriented X3 and normal gait Skin Skin exam: Present warm, dry and intact Medical Decision Making <Elle Moura (ED), TAFE REGISTRAR - Last Filed: 09/23/24 16:22> Medical Records Screening: Per USPSTF and CDC recommendations, given the prevalence of disease in our region, it is our hospital?s policy to screen for HIV and viral Hepatitis for all patients aged 18 and over and those with ongoing risk factors. Yefri Inquiry Pt receiving controlled substance: No Yefri was queried for this patient: No Vital Signs: 09/23/24 11:35 09/23/24 11:37 09/23/24 11:40 Temperature 98.3 F Temperature Source Oral Pulse Rate 86 93 H Pulse Rate [Right Radial] 92 H Respiratory Rate 15 Blood Pressure 124/44 L 123/44 L Blood Pressure [Right Arm] 134/48 L Blood Pressure Mean Blood Pressure Mean [Right Arm] 76 Blood Pressure Source Blood Pressure Source [Right Arm] Automatic Cuff Blood Pressure Position Blood Pressure Position [Right Arm] Supine 02 Sat by Pulse Oximetry 96 96 96 Oxygen Delivery Method Room Air 09/23/24 11:45 09/23/24 11:50 09/23/24 11:55 Temperature Temperature Source Pulse Rate 86 82 81 Pulse Rate [Right Radial] Respiratory Rate Blood Pressure 120/46 L 116/44 L 108/44 L Blood Pressure [Right Arm] Blood Pressure Mean Blood Pressure Mean [Right Arm] Blood Pressure Source Blood Pressure Source [Right Arm] Blood Pressure Position Blood Pressure Position [Right Arm] 02 Sat by Pulse Oximetry 96 95 95 Oxygen Delivery Method 09/23/24 12:00 09/23/24 12:05 09/23/24 12:10 Temperature Temperature Source Pulse Rate 77 85 87 Pulse Rate [Right Radial] Respiratory Rate Blood Pressure 102/49 L 110/41 L 110/47 L Blood Pressure [Right Arm] Blood Pressure Mean Blood Pressure Mean [Right Arm] Blood Pressure Source Blood Pressure Source [Right Arm] Blood Pressure Position Blood Pressure Position [Right Arm] 02 Sat by Pulse Oximetry 95 95 95 Oxygen Delivery Method 09/23/24 12:15 09/23/24 12:20 09/23/24 12:20 Temperature Temperature Source Pulse Rate 78 84 Pulse Rate [Right Radial] 85 Respiratory Rate Blood Pressure 107/44 L 104/39 L Blood Pressure [Right Arm] 104/39 L Blood Pressure Mean 69 Blood Pressure Mean [Right Arm] 60 Blood Pressure Source Blood Pressure Source [Right Arm] Blood Pressure Position Blood Pressure Position [Right Arm] 02 Sat by Pulse Oximetry 95 97 Oxygen Delivery Method 09/23/24 12:30 09/23/24 12:35 09/23/24 14:46 Temperature Temperature Source Pulse Rate 84 84 89 Pulse Rate [Right Radial] Respiratory Rate Blood Pressure 111/42 L 105/45 L 146/62 H Blood Pressure [Right Arm] Blood Pressure Mean 75 73 Blood Pressure Mean [Right Arm] Blood Pressure Source Blood Pressure Source [Right Arm] Blood Pressure Position Blood Pressure Position [Right Arm] 02 Sat by Pulse Oximetry 95 95 94 L Oxygen Delivery Method 09/23/24 14:50 09/23/24 14:55 09/23/24 15:00 Temperature Temperature Source Pulse Rate 95 H 97 H 93 H Pulse Rate [Right Radial] Respiratory Rate Blood Pressure 157/74 H 167/76 H 158/69 H Blood Pressure [Right Arm] Blood Pressure Mean Blood Pressure Mean [Right Arm] Blood Pressure Source Blood Pressure Source [Right Arm] Blood Pressure Position Blood Pressure Position [Right Arm] 02 Sat by Pulse Oximetry 92 L 94 L 95 Oxygen Delivery Method 09/23/24 15:05 09/23/24 15:10 09/23/24 15:15 Temperature Temperature Source Pulse Rate 94 H 96 H 96 H Pulse Rate [Right Radial] Respiratory Rate Blood Pressure 163/72 H 170/76 H 163/117 H Blood Pressure [Right Arm] Blood Pressure Mean Blood Pressure Mean [Right Arm] Blood Pressure Source Blood Pressure Source [Right Arm] Blood Pressure Position Blood Pressure Position [Right Arm] 02 Sat by Pulse Oximetry 95 94 L 96 Oxygen Delivery Method 09/23/24 15:22 09/23/24 15:31 09/23/24 15:35 Temperature Temperature Source Pulse Rate 100 H 95 H 95 H Pulse Rate [Right Radial] Respiratory Rate Blood Pressure 157/79 H 152/71 H 145/77 H Blood Pressure [Right Arm] Blood Pressure Mean Blood Pressure Mean [Right Arm] Blood Pressure Source Blood Pressure Source [Right Arm] Blood Pressure Position Blood Pressure Position [Right Arm] 02 Sat by Pulse Oximetry 95 95 94 L Oxygen Delivery Method 09/23/24 15:40 09/23/24 15:45 09/23/24 17:01 Temperature 98.4 F Temperature Source Oral Pulse Rate 95 H 97 H 93 H Pulse Rate [Right Radial] Respiratory Rate 19 Blood Pressure 135/83 148/67 H 148/67 H Blood Pressure [Right Arm] Blood Pressure Mean Blood Pressure Mean [Right Arm] Blood Pressure Source Automatic Cuff Blood Pressure Source [Right Arm] Blood Pressure Position Supine Blood Pressure Position [Right Arm] 02 Sat by Pulse Oximetry 93 L 93 L Oxygen Delivery Method Room Air Lab Data Lab Results 09/23/24 12:35: WBC 36.6 H*, RBC 4.06 L, Hgb 12.8, Hct 37.4, MCV 92.1, MCH 31.5 H, MCHC 34.2, RDW 12.3, Plt Count 323, MPV 8.3, Neut % (Auto) 95.5 H, Lymph % (Auto) 0.5 L, [place] % (Auto) 2.0, Eos % (Auto) 0.1, Baso % (Auto) 0.3, Neut # (Auto) 34.9 H, Lymph # (Auto) 0.2 L, [place] # (Auto) 0.7, Eos # (Auto) 0.0, Baso # (Auto) 0.1, ESR 6, PT 10.9, INR 0.98, APTT 25.0, Sodium 129 L, Potassium 4.3, C hloride 91 L, Carbon Dioxide 27, Anion Gap 15.3 H, BUN 15, Creatinine 0.70, Estimated Creat Clear 33, Estimated GFR 79, Est GFR ( Amer) 96, Glucose 245 H, Calcium 9.3, Magnesium 1.4 L, Total Bilirubin 1.2, AST 27, ALT 23, Alkaline Phosphatase 92, Total Creatine Kinase 27 L, C-Reactive Protein 38.8 H, Total Protein 6.7, Albumin 4.0, Globulin 2.7, Albumin/Globulin Ratio 1.5, Lipase 13 L, HCV Ab KELLEY w/Rflx PCR Qn Negative, HIV Ag/Ab Combo Qual Negative 09/23/24 12:45: Urine Color Yellow, Urine Appearance Clear, Urine pH 6.0, Ur Specific [place] 1.015, Urine Protein Trace, Urine Glucose (UA) 3+, Urine Ketones 1+, Urine Blood Negative, Urine Nitrate Negative, Urine Bilirubin Negative, Urine Urobilinogen 0.2, Ur Leukocyte Esterase 1+ A, Urine RBC None, Urine WBC 50-100, Ur Squamous Epith Cells 20-50, Urine Bacteria Trace 09/23/24 13:09: Chlamy pneumoniae PCR Not detected, Adenovirus (PCR) Not detected, B. pertussis DNA (PCR) Not detected, Coronavirus OC43 (PCR) Not detected, Coronavirus HKU1 (PCR) Not detected, Coronavirus 229E (PCR) Not detected, SARS-CoV-2 (PCR) Not detected, Coronavirus NL63 (PCR) Not detected, Human Metapneumovir PCR Not detected, Influenza A (H1) PCR Not detected, Influ A (H1N1/09) PCR Not detected, Influenza A (H3) PCR Not detected, Influenza Type A (PCR) Not detected, Influenza Type B (PCR) Not detected, M. pneumoniae (PCR) Not detected, Parainfluenza 1 (PCR) Not detected, Parainfluenza 2 (PCR) Not detected, Parainfluenza 3 (PCR) Not detected, Parainfluenza 4 (PCR) Not detected, RSV (PCR) Not detected, Entero/Rhino (PCR) Not detected 09/23/24 12:35 09/23/24 12:35 Orders (Tests/Meds): ED MEDICATIONS Generic Name Dose Route Start Last Admin Trade Name Freq PRN Reason Stop Dose Admin Acetaminophen 650 mg 09/23/24 16:06 Acetaminophen 325mg Tab PO 10/23/24 16:05 Q4HP PRN Fever or Mild Pain (1-3) Heparin Sodium (Porcine) 5,000 unit 09/23/24 21:00 Heparin Sodium 5,000 Unit/Ml Vial SUBCUT 10/23/24 20:59 TID BJ Cefepime HCl 2 gm/ Sodium 100 mls @ 200 mls/hr 09/24/24 01:30 Chloride IV 10/04/24 01:29 Q12H BJ Vancomycin HCl 1,000 mg/ 250 mls @ 125 mls/hr 09/24/24 15:00 Sodium Chloride IV 10/04/24 14:59 Q24H [facility] Insulin Glargine 18 unit 09/23/24 21:00 Insulin Glargine 100 Units/Ml 3ml Flexpen SUBCUT 10/23/24 20:59 HS [facility] Insulin Human Lispro 0 unit 09/23/24 16:30 09/23/24 17:08 Humalog 100 Units/Ml 10ml Vial (Ssi) SUBCUT 10/23/24 16:29 4 unit ACHS [facility] Administration Protocol Ondansetron HCl 4 mg 09/23/24 16:06 Ondansetron 4mg/2ml Vial IV 10/23/24 16:05 Q8HP PRN Nausea Sodium Chloride 10 ml 09/23/24 16:15 Sodium Chloride 0.9% 10ml Flush Syringe IV 10/23/24 16:14 NEEDED PRN Maintain IV Site Discontinued Medications Generic Name Dose Route Start Last Admin Trade Name Freq PRN Reason Stop Dose Admin Acetaminophen 1,000 mg 09/23/24 16:03 09/23/24 16:20 Acetaminophen 1,000mg/100ml Vial IV 09/23/24 16:04 Not Given ONCE ONE Lactated Ringer's 1,550 mls @ 775 mls/hr 09/23/24 12:58 09/23/24 13:23 Lactated Ringer's 1000 Ml Bag 30 ml/kg infuse over 2 hr (1550 ml) 09/23/24 14:57 775 mls/hr IV Administration .Q2H ONE Protocol Cefepime HCl 2 gm/ Sodium 100 mls @ 200 mls/hr 09/23/24 12:58 09/23/24 13:22 Chloride IV 09/23/24 13:27 200 mls/hr ONCE ONE Administration Vancomycin HCl 1,000 mg/ 250 mls @ 125 mls/hr 09/23/24 13:15 09/23/24 14:42 Sodium Chloride IV 09/23/24 15:14 125 mls/hr ONCE ONE Administration Magnesium Sulfate 2 gm in 50 mls @ 50 mls/hr 09/23/24 15:26 Magnesium Sulfate 2gm/50ml Premix IV 09/23/24 16:25 ONCE ONE Iopamidol 75 ml 09/23/24 14:04 09/23/24 14:05 Iopamidol-370 (76%);100ml Bottle IV 09/23/24 14:05 75 ml ONCE ONE Administration Miscellaneous 1 each 09/23/24 13:00 09/23/24 16:40 Vancomycin Consult Request NOTAPPLIC 10/23/24 12:59 Not Given CONSULT PHARMACY [facility] Sodium Chloride 50 ml 09/23/24 14:04 09/23/24 14:05 0.9 % Sodium Chloride 50 Ml Vial IV 09/23/24 14:05 50 ml ONCE ONE Administration Sodium Chloride 10 ml 09/23/24 14:04 09/23/24 14:05 Sodium Chloride 0.9% 10ml Syr (Rad Only) IV 10/23/24 14:03 10 ml NEEDED PRN Administration Maintain IV Site ORDERS Category Date Time Status CT abdomen pelvis w con Stat Cat Scan 09/23/24 13:02 Completed CTA Chest [CT angio chest PE protocol] Stat Cat Scan 09/23/24 13:02 Completed Activated Partial Thrombo Time Stat Lab 09/23/24 12:35 Completed C-Reactive Protein Stat Lab 09/23/24 12:35 Completed CBC [Complete Blood Count Auto Diff] Stat Lab 09/23/24 12:35 Completed Complete Blood Count Auto Diff AMLAB Lab 09/24/24 06:00 Ordered Comprehensive Metabolic Panel AMLAB Lab 09/24/24 06:00 Ordered Comprehensive Metabolic Panel Stat Lab 09/23/24 12:35 Completed Creatine Kinase Stat Lab 09/23/24 12:35 Completed Erythrocyte Sedimentation Rate Stat Lab 09/23/24 12:35 Completed Full Resp Panel w/COVID ([facility]) Routine Lab 09/23/24 13:09 Completed HIV Combo Stat Lab 09/23/24 12:35 Completed Hepatitis C Ab Qual. W/ RFX Stat Lab 09/23/24 12:35 Completed Lactic Acid Stat Lab 09/23/24 12:59 Ordered Lipase Stat Lab 09/23/24 12:35 Completed Magnesium AMLAB Lab 09/24/24 06:00 Ordered Magnesium Stat Lab 09/23/24 12:35 Completed Prothrombin Time INR Stat Lab 09/23/24 12:35 Completed Urinalysis and Microscopic Stat Lab 09/23/24 12:45 Completed Blood Culture Stat Micro 09/23/24 13:25 Received Urine Culture Stat Micro 09/23/24 12:45 Received Medical Decision Narrative: patient is a 88-year-old female presenting to the emergency department for evaluation of vomiting after she started antibiotics for UTI. Dr. Lacey sent her for possible aspiration pneumonia. Patient is hypotensive with heart rate in the high 90s, nontoxic-appearing upon arrival, afebrile. Differential diagnosis includes pneumonia, sepsis, UTI, among others. Workup will be conducted with hematologic labs, specific imaging including CT a and CT abdomen pelvis. Initial inventions include crystalloid bolus, antibiotics including bank and cefepime. Initial workup reviewed by me hematologic labs are remarkable for elevated white count at 36.6. Low sodium at 129, UTI with 1+ leuks. Imaging informally interpreted by me and remarkable for right sided atelectasis. Formal imaging read remarkable for groundglass opacity in solid pulmonary nodule could be infectious or inflammatory. Please see formal radiology read for full report. Upon repeat evaluation patient's pain is improved. She is tolerating some p.o. fluid. I did discuss with Dr. Jenkins who wants patient admitted for urosepsis. I talked to Dr. Qureshi who ended up talking to Dr. Jenkins about admission. He did accept patient to hospital medicine. Patient stable for admission. <Kye Jenkins MD - Last Filed: 09/23/24 17:16> Vital Signs: 09/23/24 11:35 09/23/24 11:37 09/23/24 11:40 Temperature 98.3 F Temperature Source Oral Pulse Rate 86 93 H Pulse Rate [Right Radial] 92 H Respiratory Rate 15 Blood Pressure 124/44 L 123/44 L Blood Pressure [Right Arm] 134/48 L Blood Pressure Mean Blood Pressure Mean [Right Arm] 76 Blood Pressure Source Blood Pressure Source [Right Arm] Automatic Cuff Blood Pressure Position Blood Pressure Position [Right Arm] Supine 02 Sat by Pulse Oximetry 96 96 96 Oxygen Delivery Method Room Air 09/23/24 11:45 09/23/24 11:50 09/23/24 11:55 Temperature Temperature Source Pulse Rate 86 82 81 Pulse Rate [Right Radial] Respiratory Rate Blood Pressure 120/46 L 116/44 L 108/44 L Blood Pressure [Right Arm] Blood Pressure Mean Blood Pressure Mean [Right Arm] Blood Pressure Source Blood Pressure Source [Right Arm] Blood Pressure Position Blood Pressure Position [Right Arm] 02 Sat by Pulse Oximetry 96 95 95 Oxygen Delivery Method 09/23/24 12:00 09/23/24 12:05 09/23/24 12:10 Temperature Temperature Source Pulse Rate 77 85 87 Pulse Rate [Right Radial] Respiratory Rate Blood Pressure 102/49 L 110/41 L 110/47 L Blood Pressure [Right Arm] Blood Pressure Mean Blood Pressure Mean [Right Arm] Blood Pressure Source Blood Pressure Source [Right Arm] Blood Pressure Position Blood Pressure Position [Right Arm] 02 Sat by Pulse Oximetry 95 95 95 Oxygen Delivery Method 09/23/24 12:15 09/23/24 12:20 09/23/24 12:20 Temperature Temperature Source Pulse Rate 78 84 Pulse Rate [Right Radial] 85 Respiratory Rate Blood Pressure 107/44 L 104/39 L Blood Pressure [Right Arm] 104/39 L Blood Pressure Mean 69 Blood Pressure Mean [Right Arm] 60 Blood Pressure Source Blood Pressure Source [Right Arm] Blood Pressure Position Blood Pressure Position [Right Arm] 02 Sat by Pulse Oximetry 95 97 Oxygen Delivery Method 09/23/24 12:30 09/23/24 12:35 09/23/24 14:46 Temperature Temperature Source Pulse Rate 84 84 89 Pulse Rate [Right Radial] Respiratory Rate Blood Pressure 111/42 L 105/45 L 146/62 H Blood Pressure [Right Arm] Blood Pressure Mean 75 73 Blood Pressure Mean [Right Arm] Blood Pressure Source Blood Pressure Source [Right Arm] Blood Pressure Position Blood Pressure Position [Right Arm] 02 Sat by Pulse Oximetry 95 95 94 L Oxygen Delivery Method 09/23/24 14:50 09/23/24 14:55 09/23/24 15:00 Temperature Temperature Source Pulse Rate 95 H 97 H 93 H Pulse Rate [Right Radial] Respiratory Rate Blood Pressure 157/74 H 167/76 H 158/69 H Blood Pressure [Right Arm] Blood Pressure Mean Blood Pressure Mean [Right Arm] Blood Pressure Source Blood Pressure Source [Right Arm] Blood Pressure Position Blood Pressure Position [Right Arm] 02 Sat by Pulse Oximetry 92 L 94 L 95 Oxygen Delivery Method 09/23/24 15:05 09/23/24 15:10 09/23/24 15:15 Temperature Temperature Source Pulse Rate 94 H 96 H 96 H Pulse Rate [Right Radial] Respiratory Rate Blood Pressure 163/72 H 170/76 H 163/117 H Blood Pressure [Right Arm] Blood Pressure Mean Blood Pressure Mean [Right Arm] Blood Pressure Source Blood Pressure Source [Right Arm] Blood Pressure Position Blood Pressure Position [Right Arm] 02 Sat by Pulse Oximetry 95 94 L 96 Oxygen Delivery Method 09/23/24 15:22 09/23/24 15:31 09/23/24 15:35 Temperature Temperature Source Pulse Rate 100 H 95 H 95 H Pulse Rate [Right Radial] Respiratory Rate Blood Pressure 157/79 H 152/71 H 145/77 H Blood Pressure [Right Arm] Blood Pressure Mean Blood Pressure Mean [Right Arm] Blood Pressure Source Blood Pressure Source [Right Arm] Blood Pressure Position Blood Pressure Position [Right Arm] 02 Sat by Pulse Oximetry 95 95 94 L Oxygen Delivery Method 09/23/24 15:40 09/23/24 15:45 09/23/24 17:01 Temperature 98.4 F Temperature Source Oral Pulse Rate 95 H 97 H 93 H Pulse Rate [Right Radial] Respiratory Rate 19 Blood Pressure 135/83 148/67 H 148/67 H Blood Pressure [Right Arm] Blood Pressure Mean Blood Pressure Mean [Right Arm] Blood Pressure Source Automatic Cuff Blood Pressure Source [Right Arm] Blood Pressure Position Supine Blood Pressure Position [Right Arm] 02 Sat by Pulse Oximetry 93 L 93 L Oxygen Delivery Method Room Air Lab Data Lab Results 09/23/24 12:35: WBC 36.6 H*, RBC 4.06 L, Hgb 12.8, Hct 37.4, MCV 92.1, MCH 31.5 H, MCHC 34.2, RDW 12.3, Plt Count 323, MPV 8.3, Neut % (Auto) 95.5 H, Lymph % (Auto) 0.5 L, [place] % (Auto) 2.0, Eos % (Auto) 0.1, Baso % (Auto) 0.3, Neut # (Auto) 34.9 H, Lymph # (Auto) 0.2 L, [place] # (Auto) 0.7, Eos # (Auto) 0.0, Baso # (Auto) 0.1, ESR 6, PT 10.9, INR 0.98, APTT 25.0, Sodium 129 L, Potassium 4.3, C hloride 91 L, Carbon Dioxide 27, Anion Gap 15.3 H, BUN 15, Creatinine 0.70, Estimated Creat Clear 33, Estimated GFR 79, Est GFR ( Amer) 96, Glucose 245 H, Calcium 9.3, Magnesium 1.4 L, Total Bilirubin 1.2, AST 27, ALT 23, Alkaline Phosphatase 92, Total Creatine Kinase 27 L, C-Reactive Protein 38.8 H, Total Protein 6.7, Albumin 4.0, Globulin 2.7, Albumin/Globulin Ratio 1.5, Lipase 13 L, HCV Ab KELLEY w/Rflx PCR Qn Negative, HIV Ag/Ab Combo Qual Negative 09/23/24 12:45: Urine Color Yellow, Urine Appearance Clear, Urine pH 6.0, Ur Specific [place] 1.015, Urine Protein Trace, Urine Glucose (UA) 3+, Urine Ketones 1+, Urine Blood Negative, Urine Nitrate Negative, Urine Bilirubin Negative, Urine Urobilinogen 0.2, Ur Leukocyte Esterase 1+ A, Urine RBC None, Urine WBC 50-100, Ur Squamous Epith Cells 20-50, Urine Bacteria Trace 09/23/24 13:09: Chlamy pneumoniae PCR Not detected, Adenovirus (PCR) Not detected, B. pertussis DNA (PCR) Not detected, Coronavirus OC43 (PCR) Not detected, Coronavirus HKU1 (PCR) Not detected, Coronavirus 229E (PCR) Not detected, SARS-CoV-2 (PCR) Not detected, Coronavirus NL63 (PCR) Not detected, Human Metapneumovir PCR Not detected, Influenza A (H1) PCR Not detected, Influ A (H1N1/09) PCR Not detected, Influenza A (H3) PCR Not detected, Influenza Type A (PCR) Not detected, Influenza Type B (PCR) Not detected, M. pneumoniae (PCR) Not detected, Parainfluenza 1 (PCR) Not detected, Parainfluenza 2 (PCR) Not detected, Parainfluenza 3 (PCR) Not detected, Parainfluenza 4 (PCR) Not detected, RSV (PCR) Not detected, Entero/Rhino (PCR) Not detected Orders (Tests/Meds): ED MEDICATIONS Generic Name Dose Route Start Last Admin Trade Name Freq PRN Reason Stop Dose Admin Acetaminophen 650 mg 09/23/24 16:06 Acetaminophen 325mg Tab PO 10/23/24 16:05 Q4HP PRN Fever or Mild Pain (1-3) Heparin Sodium (Porcine) 5,000 unit 09/23/24 21:00 Heparin Sodium 5,000 Unit/Ml Vial SUBCUT 10/23/24 20:59 TID BJ Cefepime HCl 2 gm/ Sodium 100 mls @ 200 mls/hr 09/24/24 01:30 Chloride IV 10/04/24 01:29 Q12H BJ Vancomycin HCl 1,000 mg/ 250 mls @ 125 mls/hr 09/24/24 15:00 Sodium Chloride IV 10/04/24 14:59 Q24H [facility] Insulin Glargine 18 unit 09/23/24 21:00 Insulin Glargine 100 Units/Ml 3ml Flexpen SUBCUT 10/23/24 20:59 HS [facility] Insulin Human Lispro 0 unit 09/23/24 16:30 09/23/24 17:08 Humalog 100 Units/Ml 10ml Vial (Ssi) SUBCUT 10/23/24 16:29 4 unit ACHS BJ Administration Protocol Ondansetron HCl 4 mg 09/23/24 16:06 Ondansetron 4mg/2ml Vial IV 10/23/24 16:05 Q8HP PRN Nausea Sodium Chloride 10 ml 09/23/24 16:15 Sodium Chloride 0.9% 10ml Flush Syringe IV 10/23/24 16:14 NEEDED PRN Maintain IV Site Discontinued Medications Generic Name Dose Route Start Last Admin Trade Name Freq PRN Reason Stop Dose Admin Acetaminophen 1,000 mg 09/23/24 16:03 09/23/24 16:20 Acetaminophen 1,000mg/100ml Vial IV 09/23/24 16:04 Not Given ONCE ONE Lactated Ringer's 1,550 mls @ 775 mls/hr 09/23/24 12:58 09/23/24 13:23 Lactated Ringer's 1000 Ml Bag 30 ml/kg infuse over 2 hr (1550 ml) 09/23/24 14:57 775 mls/hr IV Administration .Q2H ONE Protocol Cefepime HCl 2 gm/ Sodium 100 mls @ 200 mls/hr 09/23/24 12:58 09/23/24 13:22 Chloride IV 09/23/24 13:27 200 mls/hr ONCE ONE Administration Vancomycin HCl 1,000 mg/ 250 mls @ 125 mls/hr 09/23/24 13:15 09/23/24 14:42 Sodium Chloride IV 09/23/24 15:14 125 mls/hr ONCE ONE Administration Magnesium Sulfate 2 gm in 50 mls @ 50 mls/hr 09/23/24 15:26 Magnesium Sulfate 2gm/50ml Premix IV 09/23/24 16:25 ONCE ONE Iopamidol 75 ml 09/23/24 14:04 09/23/24 14:05 Iopamidol-370 (76%);100ml Bottle IV 09/23/24 14:05 75 ml ONCE ONE Administration Miscellaneous 1 each 09/23/24 13:00 09/23/24 16:40 Vancomycin Consult Request NOTAPPLIC 10/23/24 12:59 Not Given CONSULT PHARMACY [facility] Sodium Chloride 50 ml 09/23/24 14:04 09/23/24 14:05 0.9 % Sodium Chloride 50 Ml Vial IV 09/23/24 14:05 50 ml ONCE ONE Administration Sodium Chloride 10 ml 09/23/24 14:04 09/23/24 14:05 Sodium Chloride 0.9% 10ml Syr (Rad Only) IV 10/23/24 14:03 10 ml NEEDED PRN Administration Maintain IV Site ORDERS Category Date Time Status CT abdomen pelvis w con Stat Cat Scan 09/23/24 13:02 Completed CTA Chest [CT angio chest PE protocol] Stat Cat Scan 09/23/24 13:02 Completed Activated Partial Thrombo Time Stat Lab 09/23/24 12:35 Completed C-Reactive Protein Stat Lab 09/23/24 12:35 Completed CBC [Complete Blood Count Auto Diff] Stat Lab 09/23/24 12:35 Completed Complete Blood Count Auto Diff AMLAB Lab 09/24/24 06:00 Ordered Comprehensive Metabolic Panel AMLAB Lab 09/24/24 06:00 Ordered Comprehensive Metabolic Panel Stat Lab 09/23/24 12:35 Completed Creatine Kinase Stat Lab 09/23/24 12:35 Completed Erythrocyte Sedimentation Rate Stat Lab 09/23/24 12:35 Completed Full Resp Panel w/COVID ([facility]) Routine Lab 09/23/24 13:09 Completed HIV Combo Stat Lab 09/23/24 12:35 Completed Hepatitis C Ab Qual. W/ RFX Stat Lab 09/23/24 12:35 Completed Lactic Acid Stat Lab 09/23/24 12:59 Ordered Lipase Stat Lab 09/23/24 12:35 Completed Magnesium AMLAB Lab 09/24/24 06:00 Ordered Magnesium Stat Lab 09/23/24 12:35 Completed Prothrombin Time INR Stat Lab 09/23/24 12:35 Completed Urinalysis and Microscopic Stat Lab 09/23/24 12:45 Completed Blood Culture Stat Micro 09/23/24 13:25 Received Urine Culture Stat Micro 09/23/24 12:45 Received Critical Care <Kye Jenkins MD - Last Filed: 09/23/24 17:16> Critical Care Time Critical Care Time: No
[2024-09-23] MEDS: IOPAMIDOL-370 (76%);100ML BOTTLE 75 ML IV (14:05)
[2024-09-23] MEDS: 0.9 % SODIUM CHLORIDE 50 ML VIAL IV (14:05)
[2024-09-23] MEDS: SODIUM CHLORIDE 0.9% 10ML SYR (RAD ONLY) 10 ML IV (14:05)
[2024-09-23 14:07] LABS: Hepatitis C Ab Qual. W/ RFX NEGATIVE (Negative)
[2024-09-23] MEDS: VANCOMYCIN HCL 1,000 MG in 0.9 % SODIUM CHLORIDE 250 ML 125 MG IV (14:42)
--- NOTE | 2024-09-23 15:40 | PC.NURSE ---
Marisel KRISHNAN spoke with about admitting the pt. is not accepting at this time. He wants to speak with the MD available if they disagree with his suggested treatment plan.
--- NOTE | 2024-09-23 16:07 | PC.NURSE ---
I notified HS of the need for a med surg bed to admit for pylonephritis
--- NOTE | 2024-09-23 16:09 | EXP.HP ---
History of Present Illness *Admission Date: 09/23/24 *Reason for visit:: Nausea and vomiting, failure of outpatient treatment for UTI *History of present illness: Ms. Dent is an 88-year-old female who presented to her PCPs office today after an episode of vomiting after taking her morning meds. She was currently on a course of nitrofurantoin for UTI. Previously had been on Levaquin with no improvement in symptoms. Family bedside helps supplement history. Patient was sent by her PCPs office because after vomiting there was concern for possible aspiration. X-ray obtained with concern for aspiration pneumonia however on formal review, no consolidation or concern for pneumonia. On presentation she was found to have white count of 36,000. Afebrile but tachycardic. Given the infection, failure of outpatient therapy, tachycardia and leukocytosis, patient meeting sepsis criteria. Cultures obtained and broad-spectrum antibiotics administered with cefepime and vancomycin. Medicine contacted for admission. Remained stable on room air. On arrival to the floor, appears comfortable. Family at bedside to supplement history. States she is feeling a little weak but lives by herself and has been getting around with normal functionality. Concerned that her infection is not gotten better. Nausea doing better. Afebrile. Stable on room air. Denies cough or shortness of breath [facility] Disclaimer: The information contained in this section may have been updated after the patient was seen, as this information can be updated by other users. Medical History Diastolic dysfunction PVD (peripheral vascular disease) Fatigue Social History Smoking Status: Never smoker alcohol intake: never substance use type: denies use current occupational status: unemployed Travel in the last 8 weeks?: Inside the [place] household members: spouse housing: house caffeine: Yes Have you lived/traveled outside [place] in past 30 days?: No Contact w/someone who lives/traveled outside US past 30 days?: No Exposure to someone with infectious disease in past 14 days?: No Do you have a fever (greater than 100.4 F or 38 C)?: No Have you tested positive for COVID-19?: No Exposed to someone with COVID-19 in past 14 days?: No Do you have a sore throat?: No Do you have a cough?: No Do you have any weakness?: No Do you have any diarrhea?: No Are you experiencing any unusual bleeding?: No Do you have any muscle aches/pain?: No Do you have any abdominal pain?: No Are you experiencing loss of taste or smell?: No Other Medical History Have you received the Flu Vaccine for this season: No Have you received the Pneumonia Vaccine: Yes Review of Systems Review of Systems Review of systems (narrative): 14 point review of systems performed, pertinent positives and negatives as per HPI Meds Home Medications and Allergies Home Medications ?Medication ?Instructions ?Recorded ?Confirmed ?Type cholecalciferol (vitamin D3) 25 25 mcg PO DAILY 01/09/21 09/23/24 History mcg (1,000 unit) capsule ferrous sulfate 325 mg (65 mg 325 mg PO BID 01/09/21 09/23/24 History iron) tablet (Feosol) metformin 1,000 mg tablet 1,000 mg PO BID Diabetes 01/09/21 09/23/24 History aspirin 81 mg chewable tablet 81 mg PO DAILY 30 days #30 tabs 09/12/23 09/23/24 Rx clopidogrel 75 mg tablet (Plavix) 75 mg PO DAILY 30 days #30 tabs 09/12/23 09/23/24 Rx gabapentin 600 mg tablet 600 mg PO HS 09/12/23 09/23/24 History atorvastatin 20 mg tablet 20 mg PO HS 30 days #90 tabs 10/15/23 09/23/24 Rx blood sugar diagnostic (True #10 ea 12/19/23 09/23/24 History Metrix Glucose Test Strip) blood-glucose meter (True Metrix #1 ea 12/19/23 09/23/24 History Air Glucose Meter) loperamide 2 mg capsule 2 mg PO NEEDED PRN BOWELS 12/19/23 09/23/24 History insulin glargine U-300 conc 300 26 unit (0.0867 mL) SQ DAILY #4.5 05/11/24 09/23/24 Rx unit/mL (1.5 mL) subcutaneous pen mL (Toujeo SoloStar U-300 Insulin) insulin syringe-needle U-100 1 mL #100 ea 05/11/24 09/23/24 Rx 31 gauge x 15/64 (BD Veo Insulin Syringe Ultra-Fine) pen needle, diabetic 32 gauge x #100 ea 05/15/24 09/23/24 Rx 5/32 (BD Soraya 2nd Gen Pen Needle) calcium carbonate (Calcium 600) 600 mg PO HS 09/23/24 09/23/24 History cinnamon bark 500 mg capsule 500 mg PO HS 09/23/24 09/23/24 History (Cinnamon) coenzyme Q10 100 mg capsule 200 mg PO DAILY 09/23/24 09/23/24 History (CoQ-10) lisinopril 20 1 tab PO DAILY 09/23/24 09/23/24 History mg-hydrochlorothiazide 12.5 mg tablet New Prescriptions to Start Prescriptions: Allergies Allergy/AdvReac Type Severity Reaction Status Date / Time No Known Allergies Allergy Verified 09/23/24 09:34 Exam Data for Last 24 hours Vital signs and Labs for Last 24 Hours: Temp Pulse Resp BP Pulse Ox O2 Del Method 98.3 F 97 H 15 148/67 H 93 L Room Air 09/23/24 11:37 09/23/24 15:45 09/23/24 11:37 09/23/24 15:45 09/23/24 15:45 09/23/24 11:37 Laboratory Results - last 24 hr 09/23/24 12:35: WBC 36.6 H*, RBC 4.06 L, Hgb 12.8, Hct 37.4, MCV 92.1, MCH 31.5 H, MCHC 34.2, RDW 12.3, Plt Count 323, MPV 8.3, Neut % (Auto) 95.5 H, Lymph % (Auto) 0.5 L, [place] % (Auto) 2.0, Eos % (Auto) 0.1, Baso % (Auto) 0.3, Neut # (Auto) 34.9 H, Lymph # (Auto) 0.2 L, [place] # (Auto) 0.7, Eos # (Auto) 0.0, Baso # (Auto) 0.1, ESR 6, PT 10.9, INR 0.98, APTT 25.0, Sodium 129 L, Potassium 4.3, Chloride 91 L, Carbon Dioxide 27, Anion Gap 15.3 H, BUN 15, Creatinine 0.70, Estimated Creat Clear 33, Estimated GFR 79, Est GFR ( Amer) 96, Glucose 245 H, Calcium 9.3, Magnesium 1.4 L, Total Bilirubin 1.2, AST 27, ALT 23, Alkaline Phosphatase 92, Total Creatine Kinase 27 L, C-Reactive Protein 38.8 H, Total Protein 6.7, Albumin 4.0, Globulin 2.7, Albumin/Globulin Ratio 1.5, Lipase 13 L, HCV Ab KELLEY w/Rflx PCR Qn Negative, HIV Ag/Ab Combo Qual Negative 09/23/24 12:45: Urine Color Yellow, Urine Appearance Clear, Urine pH 6.0, Ur Specific [place] 1.015, Urine Protein Trace, Urine Glucose (UA) 3+, Urine Ketones 1+, Urine Blood Negative, Urine Nitrate Negative, Urine Bilirubin Negative, Urine Urobilinogen 0.2, Ur Leukocyte Esterase 1+ A, Urine RBC None, Urine WBC 50-100, Ur Squamous Epith Cells 20-50, Urine Bacteria Trace 09/23/24 13:09: Chlamy pneumoniae PCR Not detected, Adenovirus (PCR) Not detected, B. pertussis DNA (PCR) Not detected, Coronavirus OC43 (PCR) Not detected, Coronavirus HKU1 (PCR) Not detected, Coronavirus 229E (PCR) Not detected, SARS-CoV-2 (PCR) Not detected, Coronavirus NL63 (PCR) Not detected, Human Metapneumovir PCR Not detected, Influenza A (H1) PCR Not detected, Influ A (H1N1/09) PCR Not detected, Influenza A (H3) PCR Not detected, Influenza Type A (PCR) Not detected, Influenza Type B (PCR) Not detected, M. pneumoniae (PCR) Not detected, Parainfluenza 1 (PCR) Not detected, Parainfluenza 2 (PCR) Not detected, Parainfluenza 3 (PCR) Not detected, Parainfluenza 4 (PCR) Not detected, RSV (PCR) Not detected, Entero/Rhino (PCR) Not detected I & O for Last 24 hours: Intake & Output 09/20/24 09/21/24 09/22/24 09/23/24 23:59 23:59 23:59 23:59 Weight 51.71 kg Constitutional Constitutional: no acute distress, average body habitus, chronically ill appearing and cooperative *Routine HEENT Exam Head: Present normocephalic Eye: Present EOMI and PERRL ENT: Present mucous membranes moist *Routine Neck Exam Neck: Present supple; Absent lymphadenopathy *Routine Respiratory Exam Respiratory: Present CTA bilaterally; Absent rhonchi, wheezes or crackles *Routine Cardiovascular Exam Cardiovascular: Present RRR *Routine Abdominal Exam Abdominal: Present soft, normoactive bowel sounds and tenderness (Nonfocal) *Routine Rectal Exam Rectal:: deferred *Routine Genitalia Exam Genitalia:: deferred *Routine Extremities Exam Extremities: Absent cyanosis, clubbing or edema Routine Back/Spine/Pelvis Exam Back/Spine: Absent CVA tenderness *Routine Skin Exam Skin: Present intact and warm; Absent rash *Routine Neurological Exam Neurological: Present alert, oriented X3 and moving all extremities; Absent altered mental status Assessment and Plan *Assessment and plan (1) Sepsis: Status: Acute Category: Medical Code(s): A41.9 - Sepsis, unspecified organism (2) UTI (urinary tract infection): Status: Acute Category: Medical Code(s): N39.0 - Urinary tract infection, site not specified (3) Weakness: Status: Acute Category: Medical Code(s): R53.1 - Weakness (4) E. coli urinary tract infection: Status: Acute Category: Medical Code(s): N39.0 - Urinary tract infection, site not specified; B96.20 - Unspecified Escherichia coli [E. 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 Concern for UTI that is failed outpatient therapy. Discussed case with ER physician, request admission for IV antibiotics and fluid culture monitoring. I decided to admit due to failed outpatient therapy. Problems addressed as follows: Sepsis Complicated UTI -Patient appears to have failed outpatient therapy. Urinalysis still abnormal. Urine culture within the past week positive for E. coli. Resistant to Levaquin but sensitive to Macrobid. Sensitive to cephalosporins. -Continue vancomycin IV and cefepime 1 g twice daily for empiric coverage. Repeat culture pending. -Blood cultures obtained and pending. -White count elevated at 32 in the office, 36 in the ED. Repeat CBC, CMP, magnesium ordered for the morning Hyponatremia: Sodium 129, chloride 91. Kidney function normal with BUN 15, creatinine 0.7. Suspect secondary to illness and possible dehydration along with diuretics. Monitor for improvement with IV fluids and p.o. intake Diabetes: A1c 7.9. Hyperglycemia of 245 on presentation. Potassium 4.3. Initiate sliding scale insulin fingersticks ACHS. - Resume basal insulin at decreased dose of 18 units nightly. - Hold metformin Hypertension CAD - Continue aspirin 81 mg daily, Plavix 75 mg daily, will consider resuming lisinopril when blood pressure is better. Resume gabapentin 600 mg nightly to help with sleep and neuropathy DNR/DNI Heparin subcu 5000 units 3 times daily Diabetic diet
--- NOTE | 2024-09-23 16:19 | EXP.PHA.CONS ---
Pharmacy Consult Date: 09/23/24 Time: 16:19 Referring provider: DR. MCGILL Reason for Consult:: VANCOMYCIN DOSING Allergies Allergy/AdvReac Type Severity Reaction Status Date / Time No Known Allergies Allergy Verified 09/23/24 09:34 Home Medications ?Medication ?Instructions ?Recorded ?Confirmed ?Type cholecalciferol (vitamin D3) 25 25 mcg PO DAILY 01/09/21 09/23/24 History mcg (1,000 unit) capsule famotidine 20 mg tablet 20 mg PO HS 01/09/21 09/23/24 History ferrous sulfate 325 mg (65 mg 325 mg PO BID 01/09/21 09/23/24 History iron) tablet (Feosol) metformin 1,000 mg tablet 1,000 mg PO BID Diabetes 01/09/21 09/23/24 History aspirin 81 mg chewable tablet 81 mg PO DAILY 30 days #30 tabs 09/12/23 09/23/24 Rx clopidogrel 75 mg tablet (Plavix) 75 mg PO DAILY 30 days #30 tabs 09/12/23 09/23/24 Rx gabapentin 600 mg tablet 600 mg PO HS 09/12/23 09/23/24 History atorvastatin 20 mg tablet 20 mg PO HS 30 days #90 tabs 10/15/23 09/23/24 Rx blood sugar diagnostic (True #10 ea 12/19/23 09/23/24 History Metrix Glucose Test Strip) blood-glucose meter (True Metrix #1 ea 12/19/23 09/23/24 History Air Glucose Meter) loperamide 2 mg capsule mg PO 12/19/23 09/23/24 History lisinopril 20 mg tablet 20 mg PO DAILY #90 tabs 03/27/24 09/23/24 Rx insulin glargine U-300 conc 300 26 unit (0.0867 mL) SQ DAILY #4.5 05/11/24 09/23/24 Rx unit/mL (1.5 mL) subcutaneous pen mL (Toujeo SoloStar U-300 Insulin) insulin syringe-needle U-100 1 mL #100 ea 05/11/24 09/23/24 Rx 31 gauge x 15/64 (BD Veo Insulin Syringe Ultra-Fine) pen needle, diabetic 32 gauge x #100 ea 05/15/24 09/23/24 Rx 5/32 (BD Soraya 2nd Gen Pen Needle) levofloxacin 250 mg tablet 250 mg PO DAILY #7 tabs 09/08/24 09/23/24 Rx ondansetron 4 mg disintegrating 4 mg PO Q8H PRN nausea and 09/14/24 09/23/24 Rx tablet vomiting #30 tabs nitrofurantoin 100 mg PO BID #14 caps 09/22/24 09/23/24 Rx monohydrate/macrocrystals 100 mg capsule (Macrobid) New Prescriptions to Start Prescriptions: Height: 1.55 m Weight: 51.71 kg Laboratory Results:: Laboratory Results - last 24 hr 09/23/24 12:35: WBC 36.6 H*, RBC 4.06 L, Hgb 12.8, Hct 37.4, MCV 92.1, MCH 31.5 H, MCHC 34.2, RDW 12.3, Plt Count 323, MPV 8.3, Neut % (Auto) 95.5 H, Lymph % (Auto) 0.5 L, [place] % (Auto) 2.0, Eos % (Auto) 0.1, Baso % (Auto) 0.3, Neut # (Auto) 34.9 H, Lymph # (Auto) 0.2 L, [place] # (Auto) 0.7, Eos # (Auto) 0.0, Baso # (Auto) 0.1, ESR 6, PT 10.9, INR 0.98, APTT 25.0, Sodium 129 L, Potassium 4.3, Chloride 91 L, Carbon Dioxide 27, Anion Gap 15.3 H, BUN 15, Creatinine 0.70, Estimated Creat Clear 33, Estimated GFR 79, Est GFR ( Amer) 96, Glucose 245 H, Calcium 9.3, Magnesium 1.4 L, Total Bilirubin 1.2, AST 27, ALT 23, Alkaline Phosphatase 92, Total Creatine Kinase 27 L, C-Reactive Protein 38.8 H, Total Protein 6.7, Albumin 4.0, Globulin 2.7, Albumin/Globulin Ratio 1.5, Lipase 13 L, HCV Ab KELLEY w/Rflx PCR Qn Negative, HIV Ag/Ab Combo Qual Negative 09/23/24 12:45: Urine Color Yellow, Urine Appearance Clear, Urine pH 6.0, Ur Specific [place] 1.015, Urine Protein Trace, Urine Glucose (UA) 3+, Urine Ketones 1+, Urine Blood Negative, Urine Nitrate Negative, Urine Bilirubin Negative, Urine Urobilinogen 0.2, Ur Leukocyte Esterase 1+ A, Urine RBC None, Urine WBC 50-100, Ur Squamous Epith Cells 20-50, Urine Bacteria Trace 09/23/24 13:09: Chlamy pneumoniae PCR Not detected, Adenovirus (PCR) Not detected, B. pertussis DNA (PCR) Not detected, Coronavirus OC43 (PCR) Not detected, Coronavirus HKU1 (PCR) Not detected, Coronavirus 229E (PCR) Not detected, SARS-CoV-2 (PCR) Not detected, Coronavirus NL63 (PCR) Not detected, Human Metapneumovir PCR Not detected, Influenza A (H1) PCR Not detected, Influ A (H1N1/09) PCR Not detected, Influenza A (H3) PCR Not detected, Influenza Type A (PCR) Not detected, Influenza Type B (PCR) Not detected, M. pneumoniae (PCR) Not detected, Parainfluenza 1 (PCR) Not detected, Parainfluenza 2 (PCR) Not detected, Parainfluenza 3 (PCR) Not detected, Parainfluenza 4 (PCR) Not detected, RSV (PCR) Not detected, Entero/Rhino (PCR) Not detected Medical History: Medical History (Updated 09/23/24 @ 11:10 by Ricky Lacey MD) Diastolic dysfunction PVD (peripheral vascular disease) Fatigue Assessment and Plan Assessment and plan all Dx Assessment and Plan for all problems:: Pharmacokinetic dosing service Objective: Patient: Floor: Age: 88 yo Serum creatinine: 0.70 mg/dL Height: 61.0 Inches Weight (kg): 51.7 Assessment: IBW (kg): 47.80 Dosing wt(kg): 51.7 Estimated Creatinine clearance (ml/min): 43.5 CRCL method: Cockcroft and Gault using ibw(default). Drug selected: Vancomycin Loading dose (mg): Vd (liters): 41.4 (factor used: 0.8 L/kg) Joel (hr-1): 0.041 Half life (hrs): 16.91 CLvanco=?? 1.697 L/hr Recommended dose: 1000 mg Interval: 24 hrs Infusion time (hrs): 2.0 Predicted peak (mcg/mL): 37.0 Predicted trough (mcg/mL): 15.01 Total body weight is being used for vancomycin dosing. Recommendations: Give Vancomycin 1000 mg q 24 hrs with an expected Cpeak of 37.0 mcg/ml and an expected Ctrough of 15.01 mcg/ml AUC 0-24 /ROHINI Data: ROHINI 0.5 mcg/mL:?? AUC/ROHINI:? 1178.6 ROHINI 1.0 mcg/mL:?? AUC/ROHINI:? 589.3 --------- ROHINI 1.5 mcg/mL:?? AUC/ROHINI:? 392.9 ROHINI 2.0 mcg/mL:?? AUC/ROHINI:? 294.6 Thank you for the consult, will continue to follow. -ABDULLAHI MAURO, DOREEND
--- NOTE | 2024-09-23 16:35 | PC.NURSE ---
Report called to ARIEL Mckenzie
--- NOTE | 2024-09-23 16:49 | PC.NURSE ---
arrived by w/c from ED
[2024-09-23] MEDS: humaLOG 100 UNITS/ML 10ML VIAL (SSI) SUBCUT (17:08)
[2024-09-23 17:26] LABS: POC Glucose,Bedside 208 (70-110)
[2024-09-23] MEDS: MAGNESIUM SULFATE IN WATER 2 GM/50 ML PIGGYBACK IV (17:41)
--- NOTE | 2024-09-23 18:07 | PC.NURSE ---
new admit from the ER this evening. pt a&ox4. no current complaints of pain. vanc given and mag replaced via IV. daughters at bedside. ambulates with standby assistance to bathroom. continent. last fsbs 208. treated with SSI. no needs at this time. call light within reach. bed alarm on for safety.
[2024-09-23] MEDS: HEPARIN SODIUM 5,000 UNIT/ML VIAL 5000 UNIT SUBCUT (20:41)
[2024-09-23] MEDS: INSULIN GLARGINE 100 UNITS/ML 3ML FLEXPEN 18 UNIT SUBCUT (20:41)
[2024-09-23] MEDS: GABAPENTIN 600MG TABLET 600 MG PO (20:41)
[2024-09-23 21:24] LABS: POC Glucose,Bedside 145 (70-110)
[2024-09-23 23:24] LABS: Reflex Lactic Add Lactic Reflex
[2024-09-23 23:56] LABS: Lactic Acid Follow Up (RFLX 1) 1.3 mmol/L (0.7-2.1)
[2024-09-24] VITALS: BP 106/43; PULSE 93; RESP 16; TEMP 37.5; O2SAT 92
[2024-09-24] MEDS: CEFEPIME HCL 2 GM in 0.9 % SODIUM CHLORIDE 100 ML IV (02:22)
[2024-09-24 04:00] VITALS: BP 96/45; PULSE 93; RESP 16; TEMP 37.1; O2SAT 90; BMI 22.7
[2024-09-24 06:12] LABS: Hematocrit 31.5 % (37.0-47.0); Immature Granulocytes % 0.7 %; Mean Corpuscular HGB Conc 35.2 g/dL (31.8-35.4); Mean Corpuscular Hemoglobin 32.5 pg (27.0-31.2); Mean Corpuscular Volume 92.1 fl (81-99); Nucleated Red Blood Cells % 0 %; Platelet Count 266 K/mm3 (142-424); Red Blood Count 3.42 M/mm3 (4.20-5.40); Red Cell Distribution Width-SD 42.1 fL; White Blood Count 18.9 K/mm3 (4.8-10.8)
--- NOTE | 2024-09-24 06:21 | PC.NURSE ---
trash and linen were taken out if needed, ice pitcher was filled, bedside table cleaned 06:22
[2024-09-24 06:51] LABS: Alanine Aminotransferase 20 U/L (12-78); Albumin Level 2.9 g/dl (3.5-5.0); Alkaline Phosphatase 63 U/L (38-126); Aspartate Amino Transferase 25 U/L (14-36); Bilirubin,Total 0.7 mg/dl (0.2-1.3); Calcium 8.4 mg/dl (8.4-10.2); Carbon Dioxide 27 mmol/L (22.0-30.0); Glucose 82 mg/dl (74-100); Magnesium 1.9 mg/dl (1.6-2.3); Potassium 3.5 mmoL/L (3.5-5.1); Sodium 127 mmol/L (136-145)
[2024-09-24 06:53] LABS: Albumin/Globulin Ratio 1.3 (1.1-1.8); Anion Gap 8.5 mEq/L (5-15); Blood Urea Nitrogen 17 mg/dl (7-17); Chloride 95 mmol/L (98-107); Creatinine Clearance Estimated 35 mL/min (50-200); Creatinine,Serum 0.70 mg/dl (0.52-1.04); Estimated Glomerular Filt Rate 79 ml/min (>60); GFR (African American) 96 ML/MIN (>60); Globulin 2.3 g/dL (1.3-3.2); Total Protein,Serum 5.2 g/dl (6.3-8.2)
[2024-09-24 07:01] LABS: POC Glucose,Bedside 92 (70-110)
[2024-09-24 07:23] LABS: RBC Morphology Normal; Total Cells Counted 100
[2024-09-24 07:58] LABS: Hemoglobin 11.1 g/dL (12.2-16.2)
[2024-09-24 08:00] VITALS: BP 103/52; PULSE 79; RESP 16; TEMP 36.9; O2SAT 94
--- NOTE | 2024-09-24 08:26 | [facility].PHAINT1 ---
Pharmacy Intervention Comments: HOME MEDICATION LIST VERIFIED USING LIST FROM OUTPATIENT PHARMACY AND PT INTERVIEW WITH DAUGHTER IN ROOM
[2024-09-24] MEDS: CLOPIDOGREL 75MG TAB 75 MG PO (08:48)
[2024-09-24] MEDS: ASPIRIN 81MG CHEWABLE TABLET 81 MG PO (08:48)
[2024-09-24] MEDS: HEPARIN SODIUM 5,000 UNIT/ML VIAL 5000 UNIT SUBCUT (08:48)
--- NOTE | 2024-09-24 10:59 | EXP.DC.SUM ---
General Admission date:: 09/23/24 Discharge date: 09/24/24 HPI HPI HPI: Ms. Dent is an 88-year-old female who presented to her PCPs office today after an episode of vomiting after taking her morning meds. She was currently on a course of nitrofurantoin for UTI. Previously had been on Levaquin with no improvement in symptoms. Family bedside helps supplement history. Patient was sent by her PCPs office because after vomiting there was concern for possible aspiration. X-ray obtained with concern for aspiration pneumonia however on formal review, no consolidation or concern for pneumonia. On presentation she was found to have white count of 36,000. Afebrile but tachycardic. Given the infection, failure of outpatient therapy, tachycardia and leukocytosis, patient meeting sepsis criteria. Cultures obtained and broad-spectrum antibiotics administered with cefepime and vancomycin. Medicine contacted for admission. Remained stable on room air. On arrival to the floor, appears comfortable. Family at bedside to supplement history. States she is feeling a little weak but lives by herself and has been getting around with normal functionality. Concerned that her infection is not gotten better. Nausea doing better. Afebrile. Stable on room air. Denies cough or shortness of breath Hospital Course Hospital Course Hospital Course: 88-year-old female who presented after emesis event after taking antibiotics. Concern for UTI that is failed outpatient therapy. Discussed case with ER physician, request admission for IV antibiotics and fluid culture monitoring. I decided to admit due to failed outpatient therapy. Responded well to IV antibiotics. White count decreased by 50%. Will need to continue IV antibiotics at discharge. Stable discharge home with plan to follow-up with infusion daily for further management. Problems addressed as follows: Sepsis Complicated UTI -Patient appears to have failed outpatient therapy. Urinalysis still abnormal. Urine culture within the past week positive for E. coli. Resistant to Levaquin but sensitive to Macrobid. Sensitive to cephalosporins. Initiated on vancomycin and cefepime twice daily. Repeat cultures were obtained. Blood cultures remain negative and are pending at discharge. White count initially 32 in PCPs office. 36 in the ED. Improved to 18.9 by morning of discharge. Tolerating p.o. intake, afebrile, normotensive. Stable to discharge home with normal kidney function with BUN 17, creatinine 0.7. Will transition to ceftriaxone to complete IV course based on pathogen sensitivity. Needs 7 days total of therapy. Patient to return to infusion daily for treatment. Hyponatremia: Sodium 129, chloride 91. Kidney function normal with BUN 15, creatinine 0.7. Suspect secondary to illness and possible dehydration along with diuretics. Stable at discharge Diabetes: A1c 7.9. Hyperglycemia of 245 on presentation. Potassium 4.3. Initiated sliding scale insulin fingersticks ACHS. Resumed her home regimen. Continue at discharge. A1c at goal given her age and comorbidities Hypertension CAD - Continue aspirin 81 mg daily, Plavix 75 mg daily, hold lisinopril at discharge due to normotensive state. Reevaluate with follow-up with PCP Resume gabapentin 600 mg nightly to help with sleep and neuropathy Total time spent on discharge 32 minutes in counseling, documentation, chart review, and direct care with patient. Exam Data for Last 24 hours Vital signs and Labs for Last 24 Hours: Temp Pulse Resp BP Pulse Ox O2 Del Method 98.5 F 79 16 103/52 L 94 L Room Air 09/24/24 08:00 09/24/24 08:00 09/24/24 08:00 09/24/24 08:00 09/24/24 08:00 09/24/24 09:00 Laboratory Results - last 24 hr 09/23/24 12:35: WBC 36.6 H*, RBC 4.06 L, Hgb 12.8, Hct 37.4, MCV 92.1, MCH 31.5 H, MCHC 34.2, RDW 12.3, Plt Count 323, MPV 8.3, Neut % (Auto) 95.5 H, Lymph % (Auto) 0.5 L, [place] % (Auto) 2.0, Eos % (Auto) 0.1, Baso % (Auto) 0.3, Neut # (Auto) 34.9 H, Lymph # (Auto) 0.2 L, [place] # (Auto) 0.7, Eos # (Auto) 0.0, Baso # (Auto) 0.1, ESR 6, PT 10.9, INR 0.98, APTT 25.0, Sodium 129 L, Potassium 4.3, Chloride 91 L, Carbon Dioxide 27, Anion Gap 15.3 H, BUN 15, Creatinine 0.70, Estimated Creat Clear 33, Estimated GFR 79, Est GFR ( Amer) 96, Glucose 245 H, Calcium 9.3, Magnesium 1.4 L, Total Bilirubin 1.2, AST 27, ALT 23, Alkaline Phosphatase 92, Total Creatine Kinase 27 L, C-Reactive Protein 38.8 H, Total Protein 6.7, Albumin 4.0, Globulin 2.7, Albumin/Globulin Ratio 1.5, Lipase 13 L, HCV Ab KELLEY w/Rflx PCR Qn Negative, HIV Ag/Ab Combo Qual Negative 09/23/24 12:45: Urine Color Yellow, Urine Appearance Clear, Urine pH 6.0, Ur Specific [place] 1.015, Urine Protein Trace, Urine Glucose (UA) 3+, Urine Ketones 1+, Urine Blood Negative, Urine Nitrate Negative, Urine Bilirubin Negative, Urine Urobilinogen 0.2, Ur Leukocyte Esterase 1+ A, Urine RBC None, Urine WBC 50-100, Ur Squamous Epith Cells 20-50, Urine Bacteria Trace 09/23/24 13:09: Chlamy pneumoniae PCR Not detected, Adenovirus (PCR) Not detected, B. pertussis DNA (PCR) Not detected, Coronavirus OC43 (PCR) Not detected, Coronavirus HKU1 (PCR) Not detected, Coronavirus 229E (PCR) Not detected, SARS-CoV-2 (PCR) Not detected, Coronavirus NL63 (PCR) Not detected, Human Metapneumovir PCR Not detected, Influenza A (H1) PCR Not detected, Influ A (H1N1/09) PCR Not detected, Influenza A (H3) PCR Not detected, Influenza Type A (PCR) Not detected, Influenza Type B (PCR) Not detected, M. pneumoniae (PCR) Not detected, Parainfluenza 1 (PCR) Not detected, Parainfluenza 2 (PCR) Not detected, Parainfluenza 3 (PCR) Not detected, Parainfluenza 4 (PCR) Not detected, RSV (PCR) Not detected, Entero/Rhino (PCR) Not detected 09/23/24 16:56: POC Glucose 208 H 09/23/24 18:59: Lactate 3.1 H 09/23/24 20:02: POC Glucose 145 H 09/23/24 23:40: Lactate 1.3 09/24/24 04:58: POC Glucose 92 09/24/24 05:58: WBC 18.9 H D, RBC 3.42 L, Hgb 11.1 L D, Hct 31.5 L, MCV 92.1, MCH 32.5 H, MCHC 35.2, RDW 12.6, Plt Count 266, MPV 8.2, Neut % (Auto) 90.4 H, Lymph % (Auto) 2.4 L, [place] % (Auto) 3.4, Eos % (Auto) 2.9, Baso % (Auto) 0.2, Neut # (Auto) 17.1 H, Lymph # (Auto) 0.5 L, [place] # (Auto) 0.6, Eos # (Auto) 0.5 H, Baso # (Auto) 0.0, Total Counted 100, Neutrophils % (Manual) 92 H, Lymphocytes % (Manual) 2 L, Monocytes % (Manual) 2, Eosinophils % (Manual) 4 H, Platelet Estimate Normal, RBC Morphology Normal, Sodium 127 L, Potassium 3.5, Chloride 95 L, Carbon Dioxide 27, Anion Gap 8.5, BUN 17, Creatinine 0.70, Estimated Creat Clear 35, Estimated GFR 79, Est GFR ( Amer) 96, Glucose 82 D, Calcium 8.4, Magnesium 1.9 D, Total Bilirubin 0.7, AST 25, ALT 20, Alkaline Phosphatase 63, Total Protein 5.2 L, Albumin 2.9 L D, Globulin 2.3, Albumin/Globulin Ratio 1.3 I & O for Last 24 hours: Intake & Output 09/21/24 09/22/24 09/23/24 09/24/24 23:59 23:59 23:59 23:59 Intake Total 460 / 460 Output Total 0 / 0 300 / 300 Balance 0 / 0 160 / 160 Weight 53.6 kg 54.686 kg Constitutional Constitutional: no acute distress, thin and chronically ill appearing *Routine HEENT Exam Head: Present normocephalic Eye: Present EOMI and PERRL ENT: Present mucous membranes moist *Routine Neck Exam Neck: Present supple; Absent lymphadenopathy *Routine Respiratory Exam Respiratory: Present CTA bilaterally; Absent rhonchi, wheezes or crackles *Routine Cardiovascular Exam Cardiovascular: Present RRR *Routine Abdominal Exam Abdominal: Present soft and normoactive bowel sounds; Absent tenderness *Routine Rectal Exam Patient deferred: visual exam *Routine Exam Patient deferred: external exam *Routine Extremities Exam Extremities: Absent cyanosis, clubbing or edema Routine Back/Spine/Pelvis Exam Back/Spine: Absent CVA tenderness *Routine Skin Exam Skin: Present warm; Absent rash *Routine Neurological Exam Neurological: Present alert, oriented X3 and moving all extremities; Absent altered mental status Results Data Completed and Pending Labs on day of discharge: Labs from last 24 hours 09/24/24 09/24/24 09/23/24 05:58 04:58 23:40 WBC 18.9 H D RBC 3.42 L Hgb 11.1 L D Hct 31.5 L MCV 92.1 MCH 32.5 H MCHC 35.2 RDW 12.6 Plt Count 266 MPV 8.2 Neut % (Auto) 90.4 H Lymph % (Auto) 2.4 L [place] % (Auto) 3.4 Eos % (Auto) 2.9 Baso % (Auto) 0.2 Neut # (Auto) 17.1 H Lymph # (Auto) 0.5 L [place] # (Auto) 0.6 Eos # (Auto) 0.5 H Baso # (Auto) 0.0 Total Counted 100 Neutrophils % (Manual) 92 H Lymphocytes % (Manual) 2 L Monocytes % (Manual) 2 Eosinophils % (Manual) 4 H Platelet Estimate Normal RBC Morphology Normal ESR PT INR APTT Sodium 127 L Potassium 3.5 Chloride 95 L Carbon Dioxide 27 Anion Gap 8.5 BUN 17 Creatinine 0.70 Estimated Creat Clear 35 Estimated GFR 79 Est GFR ( Amer) 96 Glucose 82 D POC Glucose 92 Lactate 1.3 Calcium 8.4 Magnesium 1.9 D Total Bilirubin 0.7 AST 25 ALT 20 Alkaline Phosphatase 63 Total Creatine Kinase C-Reactive Protein Total Protein 5.2 L Albumin 2.9 L D Globulin 2.3 Albumin/Globulin Ratio 1.3 Lipase Urine Color Urine Appearance Urine pH Ur Specific [place] Urine Protein Urine Glucose (UA) Urine Ketones Urine Blood Urine Nitrate Urine Bilirubin Urine Urobilinogen Ur Leukocyte Esterase Urine RBC Urine WBC Ur Squamous Epith Cells Urine Bacteria Chlamy pneumoniae PCR Adenovirus (PCR) B. pertussis DNA (PCR) Coronavirus OC43 (PCR) Coronavirus HKU1 (PCR) Coronavirus 229E (PCR) SARS-CoV-2 (PCR) Coronavirus NL63 (PCR) HCV Ab KELLEY w/Rflx PCR Qn HIV Ag/Ab Combo Qual Human Metapneumovir PCR Influenza A (H1) PCR Influ A (H1N1/09) PCR Influenza A (H3) PCR Influenza Type A (PCR) Influenza Type B (PCR) M. pneumoniae (PCR) Parainfluenza 1 (PCR) Parainfluenza 2 (PCR) Parainfluenza 3 (PCR) Parainfluenza 4 (PCR) RSV (PCR) Entero/Rhino (PCR) 09/23/24 09/23/24 09/23/24 20:02 18:59 16:56 WBC RBC Hgb Hct MCV MCH MCHC RDW Plt Count MPV Neut % (Auto) Lymph % (Auto) [place] % (Auto) Eos % (Auto) Baso % (Auto) Neut # (Auto) Lymph # (Auto) [place] # (Auto) Eos # (Auto) Baso # (Auto) Total Counted Neutrophils % (Manual) Lymphocytes % (Manual) Monocytes % (Manual) Eosinophils % (Manual) Platelet Estimate RBC Morphology ESR PT INR APTT Sodium Potassium Chloride Carbon Dioxide Anion Gap BUN Creatinine Estimated Creat Clear Estimated GFR Est GFR ( Amer) Glucose POC Glucose 145 H 208 H Lactate 3.1 H Calcium Magnesium Total Bilirubin AST ALT Alkaline Phosphatase Total Creatine Kinase C-Reactive Protein Total Protein Albumin Globulin Albumin/Globulin Ratio Lipase Urine Color Urine Appearance Urine pH Ur Specific [place] Urine Protein Urine Glucose (UA) Urine Ketones Urine Blood Urine Nitrate Urine Bilirubin Urine Urobilinogen Ur Leukocyte Esterase Urine RBC Urine WBC Ur Squamous Epith Cells Urine Bacteria Chlamy pneumoniae PCR Adenovirus (PCR) B. pertussis DNA (PCR) Coronavirus OC43 (PCR) Coronavirus HKU1 (PCR) Coronavirus 229E (PCR) SARS-CoV-2 (PCR) Coronavirus NL63 (PCR) HCV Ab KELLEY w/Rflx PCR Qn HIV Ag/Ab Combo Qual Human Metapneumovir PCR Influenza A (H1) PCR Influ A (H1N1/09) PCR Influenza A (H3) PCR Influenza Type A (PCR) Influenza Type B (PCR) M. pneumoniae (PCR) Parainfluenza 1 (PCR) Parainfluenza 2 (PCR) Parainfluenza 3 (PCR) Parainfluenza 4 (PCR) RSV (PCR) Entero/Rhino (PCR) 09/23/24 09/23/24 09/23/24 13:09 12:45 12:35 WBC 36.6 H* RBC 4.06 L Hgb 12.8 Hct 37.4 MCV 92.1 MCH 31.5 H MCHC 34.2 RDW 12.3 Plt Count 323 MPV 8.3 Neut % (Auto) 95.5 H Lymph % (Auto) 0.5 L [place] % (Auto) 2.0 Eos % (Auto) 0.1 Baso % (Auto) 0.3 Neut # (Auto) 34.9 H Lymph # (Auto) 0.2 L [place] # (Auto) 0.7 Eos # (Auto) 0.0 Baso # (Auto) 0.1 Total Counted Neutrophils % (Manual) Lymphocytes % (Manual) Monocytes % (Manual) Eosinophils % (Manual) Platelet Estimate RBC Morphology ESR 6 PT 10.9 INR 0.98 APTT 25.0 Sodium 129 L Potassium 4.3 Chloride 91 L Carbon Dioxide 27 Anion Gap 15.3 H BUN 15 Creatinine 0.70 Estimated Creat Clear 33 Estimated GFR 79 Est GFR ( Amer) 96 Glucose 245 H POC Glucose Lactate Calcium 9.3 Magnesium 1.4 L Total Bilirubin 1.2 AST 27 ALT 23 Alkaline Phosphatase 92 Total Creatine Kinase 27 L C-Reactive Protein 38.8 H Total Protein 6.7 Albumin 4.0 Globulin 2.7 Albumin/Globulin Ratio 1.5 Lipase 13 L Urine Color Yellow Urine Appearance Clear Urine pH 6.0 Ur Specific [place] 1.015 Urine Protein Trace Urine Glucose (UA) 3+ Urine Ketones 1+ Urine Blood Negative Urine Nitrate Negative Urine Bilirubin Negative Urine Urobilinogen 0.2 Ur Leukocyte Esterase 1+ A Urine RBC None Urine WBC 50-100 Ur Squamous Epith Cells 20-50 Urine Bacteria Trace Chlamy pneumoniae PCR Not detected Adenovirus (PCR) Not detected B. pertussis DNA (PCR) Not detected Coronavirus OC43 (PCR) Not detected Coronavirus HKU1 (PCR) Not detected Coronavirus 229E (PCR) Not detected SARS-CoV-2 (PCR) Not detected Coronavirus NL63 (PCR) Not detected HCV Ab KELLEY w/Rflx PCR Qn Negative HIV Ag/Ab Combo Qual Negative Human Metapneumovir PCR Not detected Influenza A (H1) PCR Not detected Influ A (H1N1/09) PCR Not detected Influenza A (H3) PCR Not detected Influenza Type A (PCR) Not detected Influenza Type B (PCR) Not detected M. pneumoniae (PCR) Not detected Parainfluenza 1 (PCR) Not detected Parainfluenza 2 (PCR) Not detected Parainfluenza 3 (PCR) Not detected Parainfluenza 4 (PCR) Not detected RSV (PCR) Not detected Entero/Rhino (PCR) Not detected DS: Diagnosis Discharge Diagnosis (1) Sepsis: Status: Acute Code(s): A41.9 - Sepsis, unspecified organism (2) UTI (urinary tract infection): Status: Acute Code(s): N39.0 - Urinary tract infection, site not specified Problem details: Complicated due to failure of outpatient therapy (3) Weakness: Status: Acute Code(s): R53.1 - Weakness (4) E. coli urinary tract infection: Status: Acute Code(s): N39.0 - Urinary tract infection, site not specified; B96.20 - Unspecified Escherichia coli [E. 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 Code(s): E11.42 - Type 2 diabetes mellitus with diabetic polyneuropathy (6) Hypertension: Status: Chronic Code(s): I10 - Essential (primary) hypertension Qualifiers: Hypertension type: primary hypertension Qualified Code(s): I10 - Essential (primary) hypertension (7) Diastolic dysfunction: Status: Acute Code(s): I51.89 - Other ill-defined heart diseases (8) Hyponatremia: Status: Acute Code(s): E87.1 - Hypo-osmolality and hyponatremia Meds Home Medications and Allergies Home Medications ?Medication ?Instructions ?Recorded ?Confirmed ?Type cholecalciferol (vitamin D3) 25 25 mcg PO DAILY 01/09/21 09/23/24 History mcg (1,000 unit) capsule ferrous sulfate 325 mg (65 mg 325 mg PO BID 01/09/21 09/23/24 History iron) tablet (Feosol) metformin 1,000 mg tablet 1,000 mg PO BID Diabetes 01/09/21 09/23/24 History aspirin 81 mg chewable tablet 81 mg PO DAILY 30 days #30 tabs 09/12/23 09/23/24 Rx clopidogrel 75 mg tablet (Plavix) 75 mg PO DAILY 30 days #30 tabs 09/12/23 09/23/24 Rx gabapentin 600 mg tablet 600 mg PO HS 09/12/23 09/23/24 History atorvastatin 20 mg tablet 20 mg PO HS 30 days #90 tabs 10/15/23 09/23/24 Rx blood sugar diagnostic (True #10 ea 12/19/23 09/23/24 History Metrix Glucose Test Strip) blood-glucose meter (True Metrix #1 ea 12/19/23 09/23/24 History Air Glucose Meter) loperamide 2 mg capsule 2 mg PO NEEDED PRN BOWELS 12/19/23 09/23/24 History insulin glargine U-300 conc 300 26 unit (0.0867 mL) SQ DAILY #4.5 05/11/24 09/23/24 Rx unit/mL (1.5 mL) subcutaneous pen mL (Toujeo SoloStar U-300 Insulin) insulin syringe-needle U-100 1 mL #100 ea 05/11/24 09/23/24 Rx 31 gauge x 15/64 (BD Veo Insulin Syringe Ultra-Fine) pen needle, diabetic 32 gauge x #100 ea 05/15/24 09/23/24 Rx 5/32 (BD Soraya 2nd Gen Pen Needle) calcium carbonate (Calcium 600) 600 mg PO HS 09/23/24 09/23/24 History cinnamon bark 500 mg capsule 500 mg PO HS 09/23/24 09/23/24 History (Cinnamon) coenzyme Q10 100 mg capsule 200 mg PO DAILY 09/23/24 09/23/24 History (CoQ-10) ceftriaxone 1 gram intravenous 1 g IV DAILY 09/24/24 Rx solution lisinopril 20 mg tablet 20 mg PO DAILY 09/24/24 09/24/24 History Held on 09/24/24. Instructions: Pending follow-up with PCP and improvement in blood pressure New Prescriptions to Start Prescriptions: Allergies Allergy/AdvReac Type Severity Reaction Status Date / Time No Known Allergies Allergy Verified 09/23/24 09:34 Discharge Plan Disposition Patient Disposition: Home, Self-Care Condition: Fair Follow up Plan Follow up with: Ricky Lacey MD [Primary Care Provider, Medical] - Enter time for follow up Referral Note: Please call office for follow up Prescriptions/Medication Reconciliation: New ceftriaxone 1 gram recon soln 1 g IV DAILY Rx Instructions: 5 days Continued metformin 1,000 mg tablet 1,000 mg PO BID ferrous sulfate [Feosol] 325 mg (65 mg iron) tablet 325 mg PO BID cholecalciferol (vitamin D3) 25 mcg (1,000 unit) capsule 25 mcg PO DAILY loperamide 2 mg capsule 2 mg PO NEEDED PRN (Reason: BOWELS) Patient Comments: TAKE 1 CAPSULE BY MOUTH EVERY 4 HOURS NEEDED (DME) True Metrix Glucose Test Strip Strip See Rx Instructions .ROUTE .MEDSUPPLY Qty: 10 Rx Instructions: As directed (DME) blood-glucose meter [True Metrix Air Glucose Meter] [facility] [place] See Rx Instructions .ROUTE .MEDSUPPLY Qty: 1 Rx Instructions: As directed atorvastatin 20 mg tablet 20 mg PO HS 30 Days Qty: 90 3RF (DME) insulin syringe-needle U-100 [BD Veo Insulin Syringe UF] 1 mL 31 gauge x 15/64 syringe See Rx Instructions .Route Qty: 100 5RF Rx Instructions: As directed insulin glargine U-300 conc [Toujeo SoloStar U-300 Insulin] 300 unit/mL (1.5 mL) insulin pen 26 unit SQ DAILY Qty: 4.5 5RF (DME) pen needle, diabetic [BD Soraya 2nd Gen Pen Needle] 32 gauge x 5/32 needle See Rx Instructions .Route Qty: 100 5RF Rx Instructions: USE ONCE DAILY calcium carbonate [Calcium 600] 600 mg calcium (1,500 mg) Tablet 600 mg PO HS coenzyme Q10 [CoQ-10] 100 mg Capsule 200 mg PO DAILY cinnamon bark [Cinnamon] 500 mg Capsule 500 mg PO HS clopidogrel [Plavix] 75 mg Tablet 75 mg PO DAILY 30 Days Qty: 30 6RF aspirin 81 mg Tablet,Chewable 81 mg PO DAILY 30 Days Qty: 30 6RF gabapentin 600 mg tablet 600 mg PO HS Patient Comments: TAKE 1 TABLET BY MOUTH ONCE DAILY AT BEDTIME FOR NEUROPATHY FOR 90 DAYS Held lisinopril 20 mg tablet 20 mg PO DAILY Hold Instructions: Pending follow-up with PCP and improvement in blood pressure Problem Reconciliation Problems Reviewed?: Yes Patient Discharge Instructions ACTIVITY: Continue current activity DIET: continue same diet Patient Instructions: DI for Urinary Tract Infection (UTI), DI for Sepsis -- Adult Print Language: Malay Providers Primary Care Provider: Ricky Lacey Admit Provider: Tony Qureshi Attending Provider: Tony Qureshi
--- NOTE | 2024-09-24 11:43 | SW/DCPLANNER ---
I spoke w/ this patient and her daughter regarding plans at time of discharge. Patient currently resides at home alone and is independent. 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 Per Dr Qureshi patient will require 5 additional days of IV antibiotics at discharge. Patient and daughter are agreeable to return to [facility] outpatient dept for IV antibiotics. Per patient should discharge home later this afternoon.
[2024-09-24 12:00] VITALS: BP 123/55; PULSE 94; RESP 16; TEMP 36.8; O2SAT 94
[2024-09-24] MEDS: CEFTRIAXONE 1 GM 1 GM in 0.9 % SODIUM CHLORIDE 50 ML IV (12:12)
== END 2024-09-24 15:15 | disposition home or self-care (01) ==
LOC: ER 11:32 → 2ND 16:16
PROVIDERS: Nurse Practitioner; Admitting Provider Internal Medicine Adolescent Medicine; Emergency Provider Emergency Medicine; PCP Internal Medicine; Visit Provider Internal Medicine Adolescent Medicine
DX: A41.9 Sepsis, unspecified organism (principal); N39.0 Urinary tract infection, site not specified; T36.95XA Adverse effect of unspecified systemic antibiotic, initial encounter; E11.51 Type 2 diabetes mellitus with diabetic peripheral angiopathy without gangrene; E11.42 Type 2 diabetes mellitus with diabetic polyneuropathy; E11.65 Type 2 diabetes mellitus with hyperglycemia; I11.9 Hypertensive heart disease without heart failure; E87.1 Hypo-osmolality and hyponatremia; I25.10 Atherosclerotic heart disease of native coronary artery without angina pectoris; B96.20 Unspecified Escherichia coli [E. coli] as the cause of diseases classified elsewhere; R91.8 Other nonspecific abnormal finding of lung field; R00.0 Tachycardia, unspecified; Z79.84 Long term (current) use of oral hypoglycemic drugs; Z79.4 Long term (current) use of insulin; Z79.82 Long term (current) use of aspirin; Z79.899 Other long term (current) drug therapy; Z79.02 Long term (current) use of antithrombotics/antiplatelets
CPT/HCPCS: 96361; 96365; 96375 ×2; 96376; 0223U; 36415; 71275; 74177; 80053; 81001; 82550; 82962; 83605; 83690; 83735; 85007; 85025; 85027; 85610; 85651; 85730; 86140; 86803; 87040; 87086; 87389; 87633; G0378; J0692; J0696; J1644; J3370; J3475; J7050; J7120; Q9967

== ENCOUNTER 2024-09-25 10:46 | Outpatient (CLI) | payer MEDICARE, SELFPAY ==
[2024-09-25] MEDS: CEFTRIAXONE 1 GM 1 GM in 0.9 % SODIUM CHLORIDE 50 ML IV (11:05)
== END 2024-09-25 11:41 | disposition home or self-care (01) ==
LOC: INF 10:47
PROVIDERS: PCP Internal Medicine; Visit Provider Internal Medicine Adolescent Medicine
DX: N39.0 Urinary tract infection, site not specified (principal); B96.20 Unspecified Escherichia coli [E. coli] as the cause of diseases classified elsewhere
CPT/HCPCS: 96365; J0696

== ENCOUNTER 2024-09-26 09:46 | Outpatient (CLI) | payer MEDICARE, SELFPAY ==
[2024-09-26] MEDS: CEFTRIAXONE 1 GM 1 GM in 0.9 % SODIUM CHLORIDE 50 ML IV (10:19)
== END 2024-09-26 10:52 | disposition home or self-care (01) ==
LOC: INF 09:47
PROVIDERS: PCP Internal Medicine; Visit Provider Internal Medicine Adolescent Medicine
DX: Z23 Encounter for immunization (principal)
CPT/HCPCS: 96365; J0696

== ENCOUNTER 2024-09-27 09:00 | Outpatient (CLI) | payer MEDICARE, SELFPAY ==
[2024-09-27] MEDS: CEFTRIAXONE 1 GM 1 GM in 0.9 % SODIUM CHLORIDE 50 ML IV (09:24)
== END 2024-09-27 10:09 | disposition home or self-care (01) ==
LOC: INF 09:01
PROVIDERS: PCP Internal Medicine; Visit Provider Internal Medicine Adolescent Medicine
DX: N39.0 Urinary tract infection, site not specified (principal); B96.20 Unspecified Escherichia coli [E. coli] as the cause of diseases classified elsewhere
CPT/HCPCS: 96365; J0696

== ENCOUNTER 2024-09-28 08:36 | Outpatient (CLI) | payer MEDICARE, SELFPAY ==
[2024-09-28] MEDS: SODIUM CHLORIDE 0.9% 10ML FLUSH SYRINGE 10 ML IV (08:45)
[2024-09-28 08:55] VITALS: BP 165/66; PULSE 65; RESP 18; TEMP 37; O2SAT 97
[2024-09-28] MEDS: 0.9 % SODIUM CHLORIDE 50 ML IV (08:55)
[2024-09-28] MEDS: CEFTRIAXONE 1 GM 1 GM in 0.9 % SODIUM CHLORIDE 50 ML IV (08:55)
[2024-09-28 09:35] VITALS: BP 145/72; PULSE 66
== END 2024-09-28 23:59 | disposition home or self-care (01) ==
LOC: INF 08:37
PROVIDERS: PCP Internal Medicine; Visit Provider Internal Medicine Adolescent Medicine
DX: N39.0 Urinary tract infection, site not specified (principal); B96.20 Unspecified Escherichia coli [E. coli] as the cause of diseases classified elsewhere
CPT/HCPCS: 96365; J0696

== ENCOUNTER 2024-09-29 08:28 | Outpatient (CLI) | payer MEDICARE, SELFPAY ==
[2024-09-29] MEDS: SODIUM CHLORIDE 0.9% 10ML FLUSH SYRINGE 10 ML IV (08:47)
[2024-09-29 08:48] VITALS: BP 140/67; PULSE 69; RESP 16; TEMP 36.6; O2SAT 98
[2024-09-29] MEDS: CEFTRIAXONE 1 GM 1 GM in 0.9 % SODIUM CHLORIDE 50 ML IV (08:48)
[2024-09-29 09:25] VITALS: BP 143/56; PULSE 65; RESP 16; TEMP 36.6; O2SAT 98
[2024-09-29 11:42] LABS: Hematocrit 35.0 % (37.0-47.0); Hemoglobin 11.7 g/dL (12.2-16.2); Immature Granulocytes % 4.0 %; Mean Corpuscular HGB Conc 33.4 g/dL (31.8-35.4); Mean Corpuscular Hemoglobin 31.5 pg (27.0-31.2); Mean Corpuscular Volume 94.1 fl (81-99); Nucleated Red Blood Cells % 0 %; Platelet Count 340 K/mm3 (142-424); Red Blood Count 3.72 M/mm3 (4.20-5.40); Red Cell Distribution Width-SD 43.7 fL; White Blood Count 9.7 K/mm3 (4.8-10.8)
[2024-09-29 11:53] LABS: Anion Gap 14.6 mEq/L (5-15); Blood Urea Nitrogen 6 mg/dl (7-17); Calcium 9.0 mg/dl (8.4-10.2); Carbon Dioxide 25 mmol/L (22.0-30.0); Chloride 96 mmol/L (98-107); Creatinine,Serum 0.50 mg/dl (0.52-1.04); Estimated Glomerular Filt Rate 117 ml/min (>60); GFR (African American) 142 ML/MIN (>60); Glucose 66 mg/dl (74-100); Potassium 3.6 mmoL/L (3.5-5.1); Sodium 132 mmol/L (136-145)
== END 2024-09-29 09:30 | disposition home or self-care (01) ==
LOC: INF 08:29
PROVIDERS: PCP Internal Medicine; Visit Provider Internal Medicine Adolescent Medicine
DX: N39.0 Urinary tract infection, site not specified (principal); B96.20 Unspecified Escherichia coli [E. coli] as the cause of diseases classified elsewhere; D72.829 Elevated white blood cell count, unspecified
CPT/HCPCS: 80048; 85025; 96365; J0696

== ENCOUNTER 2024-11-11 11:19 | Outpatient (CLI) | payer MEDICARE, SELFPAY ==
--- OUTSIDE RECORDS SUMMARY | 2024-11-12 12:11 | XMS_ITS | Clinical Summary ---
Author Organization [facility] ystem Address [address] [place] [address] Care Team Providers Care Admissions Officer Name Role Phone Unavailable Primary Care Provider Unavailabl e Social History Tobacco Use Types Packs/Day Years Used Date Smoking Tobacco: Never Assessed Abuse Screen Answer Date Recorded Unsafe at Home or Work/School Not on file Feels Threatened by Someone? Not on file 01/2023 Does Anyone Keep You from Co ntacting Others or Doint Things Outside the Home? Not on file 01/02/2023 Physical Sign of Abuse Present Not on file 1 Housing Stability Answer Date Recorded Current Living Arrangements Not on file 12/23 Potentially Unsafe Housing Conditions Not on karen e 01/02/2023 Family and Community Support Answer Lyndon e Recorded Help with Day-to-Day Activities Not on file 01/02/2023 Lonely or Isolated Not on file 01/02/2023 Employment Answer Date Recorded Do you want help finding or keeping work or a hina b? Not on file 01/02/2023 Disabilities Answer Date Recorded Concentrating, Remembering, or Making Decisions Difficulty Not on file 01/02/2023 Doing Errands Independently Difficulty Not on fi le 01/02/2023 Education Answer Date Recorded Help with school or training? Not on file Preferred Language Not on file 01/02/2023 Comments Unknown Sex and Gender Information Value Date Recorded Sex Assigned at Not on file Legal Sex Female 11:54 AM EDT Gender Identity Not on file Sexual Orientation Not on file Last Filed Vital Signs Vital Sign Reading Time Taken Comments Blood Pressure 129/84 08/13/2012 1:43 PM EDT Pulse - - Temperature - - Respiratory Rate - - Oxygen Saturation - - Inhaled Oxygen Concentration - - Weight 49.9 kg (110 lb 0.2 oz) 08/13/2012 1:43 P M EDT Height 154.9 cm (5' 1 ) 08/13/2012 1:43 PM EDT Body Mass Index 20.79 08/13/2012 1:43 PM EDT Plan of Treatment Health Maintenance Due Date Last Done Comments ANNUAL PHYSICAL 1935 DXA SCAN 1935 TDAP/TD VACCINES (1 - Tdap) 1954 Pneumococcal Vaccine 50+ (1 of 1 - PCV) 10/12/1987 ZOSTER VACCINE (1 of 2) 10/12/1987 RSV Vaccine - Adults (1 - 1-dose 75+ series) 3 COVID-19 Vaccine (1 - 2023- season) 2023 INFLUENZA VACCINE 12/23/2024
== END 2024-11-11 23:59 | disposition home or self-care (01) ==
LOC: LAB.DROPOF 11-12 12:09
PROVIDERS: PCP Internal Medicine; Visit Provider Internal Medicine
DX: L03.031 Cellulitis of right toe (principal); L97.519 Non-pressure chronic ulcer of other part of right foot with unspecified severity
CPT/HCPCS: 87070; 87077; 87205

== ENCOUNTER 2024-12-15 11:04 | Outpatient (CLI) | payer MEDICARE, SELFPAY ==
--- NOTE | 2024-12-15 11:15 | CA_ITS ---
FINAL REPORT TECHNIQUE: Multiple transverse and longitudinal images were performed of right the femoral-popliteal deep venous system with augmentation and compression maneuvers. CLINICAL HISTORY: Right posterior thigh/knee pain without injury FINDINGS: Right lower extremity duplex ultrasound demonstrates normal flow in the deep venous system. There is no abnormal echogenicity to suggest thrombus. There is normal compression and augmentation. IMPRESSION: No evidence of right DVT. Reviewed, Interpreted and Dictated by Yuli Ding MD Transcribed by Leona Thomas Authenticated and [facility]
--- OUTSIDE RECORDS SUMMARY | 2024-12-15 11:16 | XMS_ITS | Clinical Summary ---
Author Organization [facility] ystem Address [address] [place] [address] Care Team Providers Care It Application Support Analyst Name Role Phone Unavailable Primary Care Provider [...] Adults (1 - 1-dose 75+ series) 3 INFLUENZA VACCINE 10/23/2024 COVID-19 Vaccine (1 - 2023- season) 2024
== END 2024-12-15 23:59 | disposition home or self-care (01) ==
LOC: RT 11:08
PROVIDERS: PCP Internal Medicine; Visit Provider Internal Medicine
DX: M79.651 Pain in right thigh (principal); M25.561 Pain in right knee
CPT/HCPCS: 93971

== ENCOUNTER 2024-12-23 15:05 | Outpatient (CLI) | payer MEDICARE, SELFPAY ==
[2024-12-23 17:15] LABS: Hematocrit 42.9 % (37.0-47.0); Hemoglobin 14.6 g/dL (12.2-16.2); Immature Granulocytes % 0.6 %; Mean Corpuscular HGB Conc 34.0 g/dL (31.8-35.4); Mean Corpuscular Hemoglobin 31.5 pg (27.0-31.2); Mean Corpuscular Volume 92.5 fl (81-99); Nucleated Red Blood Cells % 0 %; Platelet Count 385 K/mm3 (142-424); Red Blood Count 4.64 M/mm3 (4.20-5.40); Red Cell Distribution Width-SD 44.3 fL; White Blood Count 11.6 K/mm3 (4.8-10.8)
[2024-12-23 17:34] LABS: Creatine Kinase 25 U/L (30-135)
[2024-12-23 17:35] LABS: Anion Gap 14.2 mEq/L (5-15); Blood Urea Nitrogen 11 mg/dl (7-17); Calcium 9.3 mg/dl (8.4-10.2); Carbon Dioxide 27 mmol/L (22.0-30.0); Chloride 92 mmol/L (98-107); Creatinine,Serum 0.60 mg/dl (0.52-1.04); Estimated Glomerular Filt Rate 95 ml/min (>60); GFR (African American) 114 ML/MIN (>60); Glucose 283 mg/dl (74-100); Potassium 4.2 mmoL/L (3.5-5.1); Sodium 129 mmol/L (136-145)
--- OUTSIDE RECORDS SUMMARY | 2024-12-24 10:45 | XMS_ITS | Clinical Summary ---
Author Organization [facility] ystem Address [address] [place] [address] Care Team Providers Care Sewing Room Supervisor Name Role Phone Unavailable Primary Care Provider [...]
== END 2024-12-23 23:59 ==
LOC: LAB.DROPOF 12-24 10:39
PROVIDERS: PCP Internal Medicine; Visit Provider Internal Medicine
DX: M79.604 Pain in right leg (principal); E11.59 Type 2 diabetes mellitus with other circulatory complications; I10 Essential (primary) hypertension
CPT/HCPCS: 36415; 80048; 82550; 85025; 85651

== ENCOUNTER 2024-12-24 09:46 | Outpatient (CLI) | payer MEDICARE, SELFPAY ==
--- NOTE | 2024-12-24 09:45 | CA_ITS ---
FINAL REPORT TECHNIQUE: Multiple transverse and longitudinal images were performed of the right femoral-popliteal deep venous system with augmentation and compression maneuvers. CLINICAL HISTORY: Right theresa/leg pain, Known previous occlusive PAD, Angioplasty of right femoral without stenting 08/2023. FINDINGS: Right lower extremity duplex ultrasound demonstrates normal flow in the deep venous system. There is no abnormal echogenicity to suggest thrombus. There is normal compression and augmentation. Incidental note is made of absence of flow in the right common femoral artery. IMPRESSION: No evidence of right DVT. Absence of flow in the right common femoral artery. Reviewed, Interpreted and Dictated by Ken Varela MD Transcribed by Akilah Whitaker Authenticated and [facility]
--- OUTSIDE RECORDS SUMMARY | 2024-12-24 09:49 | XMS_ITS | Clinical Summary ---
Author Organization [facility] ystem Address [address] [place] [address] Care Team Providers Care Home Care Coordinator Name Role Phone Unavailable Primary Care Provider [...]
--- OUTSIDE RECORDS SUMMARY | 2024-12-24 09:50 | XMS_ITS | Continuity of Care Document ---
Author Organization [facility] Address [address] [facility] [address] [place] [address] Assessment Encounter Date Assessment Date Assessment LastModified by Organization Details LastModified Time 11/12/2024 11/12/2024 ASSESSMENT: Denise Dent is an 89-year-old female with improved urinary symptoms following antibiotic treatment and prophylactic medication. PLAN: 1. Continue methenamine prophylactic medication. 2. Schedule follow-up in approximately three months. 3. Provide refills for prescribed medications. 4. Advise the patient to call if any changes or concerns arise. Please note this report was created using voice recognition/text compilation software documentation services during the encounter with the patient. [email or web address] Not available 11/12/2024 09:56:58 Plan of Treatment Reminders Order Date Submit Date Provider Last Modified By Organization Details Last Modified Time Details Appointments TELEPHONI C VISIT 15 2024 08:00A Merle REYNA MD Not available Not available Not available OV EST 15 2024 10:15A Merle REYNA MD Not available Not available Not available Lab urinalysi s, dipstick [address] [facility], [address] [facility] [address], [place], [address], 11/12/2024 09:57:34 Referral None recorded. Procedures None recorded. Surgeries None recorded. Imaging None recorded. Medication Orders Hiprex 1 gram tablet 2024 025 [facility] 591, [address], [address], 11/12/2024 09:57:39 Patient TargetsNo targets recorded. Patient InstructionsNo instructions recorded. Reason for Referral None Reported. Results Created Date Observation Date Name Description Value Unit Range Abnormal Flag Note LastModifiedBy Organization Detail LastModifiedTime 10/30/1910/29/2024 BASIC METAB OLIC PANEL sodium 128 mmol/ L 136-14 5 low Not Available [facility] ([facility] [address] [place], [address], 10/29/2024 16:19:19 10/30/19 25 10/29/2024 BASIC METAB OLIC PANEL potassium 4.0 mmol/ L 3.6-5. 0 Not Available [facility] ([facility]) [address] [place], [address], 10/29/2024 16:19:19 10/30/19 25 10/29/2024 BASIC METAB OLIC PANEL chloride 92 mmol/ L 98-107 low Not Available [facility] ([facility]) [address] [place], [address], 10/29/2024 16:19:19 10/30/19 25 10/29/2024 BASIC METAB OLIC PANEL carbon dioxide 30.4 mmol/ L 21.0-3 2.0 Not Available [facility] ([facility]) [address] [place], [address], 10/29/2024 16:19:19 10/30/19 25 10/29/2024 BASIC METAB OLIC PANEL anion gap 9.6 Not Available [facility] ([facility]) [address] [place], [address], 10/29/2024 16:19:19 10/30/19 25 10/29/2024 BASIC METAB OLIC PANEL glucose 432 mg/dL 70-120 high Not Available [facility] ([facility]) [address] [place], [address], 10/29/2024 16:19:19 10/30/19 25 10/29/2024 BASIC METAB OLIC PANEL BUN 11 mg/dL 7-18 Not Available [facility] ([facility]) [address], [place], [address], 10/29/2024 16:19:19 10/30/19 25 10/29/2024 BASIC METAB OLIC PANEL creatinine 0.9 mg/dL 0.6-1. 3 Not Available [facility] ([facility]) [address], [place], [address], 10/29/2024 16:19:19 10/30/19 25 10/29/2024 BASIC METAB OLIC PANEL glomerular filtration rate 62 mlper min 60- GFR LIMIT ATION : The eGFR equat ion CKD-E PI 2020 is not appli cable for pedia tric patie nts or great er than 90 years of age. The follo wing condi tions may alter the GFR resul t: extre mes in body size, malnu triti on or obesi ty, skele andie muscl e disea se, parap legia or quadr ipleg ia, veget diana diet or rapid ly hanson ing kiney funct ion. Not Available [facility] ([facility]) [address], [place], [address], 10/29/2024 16:19:19 10/30/19 25 10/29/2024 BASIC METAB OLIC PANEL osmolality (calculated) 285 mOsm/ kg 275-30 1 OSMOL ALITY IS A CALCU LATIO N UTILI ZING THE SERUM /PLAS MA SODIU M, GLUCO SE AND UREA NITRO GEN (BUN) LEVEL S. FOR THE MOST ACCUR ATE RESUL T A MEASU RED SERUM OSMOL ALITY IS SUGGE STED. Not Available [facility] ([facility]) [address], [place], [address], 10/29/2024 16:19:19 10/30/19 25 10/29/2024 BASIC METAB OLIC PANEL calcium 9.0 mg/dL 8.5-10 .5 Not Available [facility] ([facility]) [address] [facility], [place], [address], 10/29/2024 16:19:19 10/30/19 25 10/29/2024 urina lysis , dipst ick Leukocytes (reference range) small Not Available [facility] [address] [address] [facility] 100, [place], [address], 10/29/2024 14:37:44 10/30/19 25 10/29/2024 urina lysis , dipst ick Nitrite (reference range:) negati ve Not Available [place] [address] [address] [facility] 100, [place], [address], 10/29/2024 14:37:44 10/30/19 25 10/29/2024 urina lysis , dipst ick Urobilinogen (reference range) 0.2 Not Available [facility] [address] [address] [facility] 100, [place], [address], 10/29/2024 14:37:44 10/30/19 25 10/29/2024 urina lysis , dipst ick Protein (reference range) negati ve Not Available [place] [address] [address] [facility] 100, [place], [address], 10/29/2024 14:37:44 10/30/19 25 10/29/2024 urina lysis , dipst ick pH (reference range 5-8.5) 6.0 Not Available [facility] [place] [address] [address] [facility] 100, [place], [address], 10/29/2024 14:37:44 10/30/19 25 10/29/2024 urina lysis , dipst ick Blood (reference range:) non-He molyze d: Trace Not Available [place] [address] [address] [facility] 100, [place], [address], 10/29/2024 14:37:44 10/30/19 25 10/29/2024 urina lysis , dipst ick Specific [place] (reference range) 1.005 Not Available [place] [address] [address] [facility] 100, [place], [address], 10/29/2024 14:37:44 10/30/19 25 10/29/2024 urina lysis , dipst ick Ketone (reference range) negati ve Not Available [place] [address] [address] [facility] 100, [place], [address], 10/29/2024 14:37:44 10/30/19 25 10/29/2024 urina lysis , dipst ick Bilirubin (reference range) negati ve Not Available [place] [address] [address] [facility] 100, [place], [address], 10/29/2024 14:37:44 10/30/19 25 10/29/2024 urina lysis , dipst ick Glucose (reference range) 1000 Not Available [place] [address] [address] [facility] 100, [place], [address], 10/29/2024 14:37:44 10/30/19 25 10/29/2024 urina lysis , dipst ick Color (reference range: yellow-brown ) Yellow Not Available [place] [address] [address] [facility] 100, [place], [address], 10/29/2024 14:37:44 10/30/19 25 10/29/2024 bladd er scan (PROC ) Calculated Residual Urine: 27ml Not Available [place] [address] [address] [facility] 100, [place], [address], 10/29/2024 14:37:27 11/13/19 25 11/12/2024 urina lysis , dipst ick Leukocytes (reference range) negati ve Not Available [place] [address] [address] [facility] 100, [place], [address], 11/12/2024 09:54:28 11/13/19 25 11/12/2024 urina lysis , dipst ick Nitrite (reference range:) negati ve Not Available [place] [address] [address] [facility] 100, [place], [address], 11/12/2024 09:54:28 11/13/19 25 11/12/2024 urina lysis , dipst ick Urobilinogen (reference range) 0.2 Not Available [facility] [place] [address] [address] [facility] 100, [place], [address], 11/12/2024 09:54:28 11/13/19 25 11/12/2024 urina lysis , dipst ick Protein (reference range) negati ve Not Available [place] [address] [address] [facility] 100, [place], [address], 11/12/2024 09:54:28 11/13/19 25 11/12/2024 urina lysis , dipst ick pH (reference range 5-8.5) 6.5 Not Available [facility] [place] [address] [address] [facility] 100, [place], [address], 11/12/2024 09:54:28 11/13/19 25 11/12/2024 urina lysis , dipst ick Blood (reference range:) non-He molyze d: Trace Not Available [place] [address] [address] [facility] 100, [place], [address], 11/12/2024 09:54:28 11/13/19 25 11/12/2024 urina lysis , dipst ick Specific [place] (reference range) 1.010 Not Available [facility], [place], [address], 11/12/2024 09:54:28 11/13/19 25 11/12/2024 urina lysis , dipst ick Ketone (reference range) negati ve Not Available [place] [address] [address] [facility] 100, [place], [address], 11/12/2024 09:54:28 11/13/19 25 11/12/2024 urina lysis , dipst ick Bilirubin (reference range) negati ve Not Available [place] [address] [address] [facility] 100, [place], [address], 11/12/2024 09:54:28 11/13/19 25 11/12/2024 urina lysis , dipst ick Glucose (reference range) 1000 Not Available [place] [address] [address] [facility] 100, [place], [address], 11/12/2024 09:54:28 11/13/19 25 11/12/2024 urina lysis , dipst ick Color (reference range: yellow-brown ) Yellow Not Available [place] [address] [address] [facility] 100, [place], [address], 11/12/2024 09:54:28 11/07/19 25 11/06/2024 renal ,bila teral [facility] [address] [place] [address] Phone: Fax: Name: DENISE DENT Exam Date: 025 : 938 Age 89 years Gender : F Access ion: [id number] Physic abimael: ART, RAFIA Facili ty: [facility] Facili ty HSV: Outpat ient Exam: RENAL, BILATE RAL US PROCED URE: US KIDNEY BILATE RAL, 025 7:11 AM CDT CLINIC AL INDICA TION: unspec ified abd pain. COMPAR ELINOR: None FINDIN GS: Right kidney measur es 9.4 x 3.9 x 4.1 cm. Left kidney measur es 7.8 x 4.5 x 3.7 cm. No hydron ephros is. Anecho ic cystic lesion to the left kidney measur ing 1.4 x 1 x 1.6 cm. No furthe r dedica belkys follow -up is requir ed for this findin g. IMPRES CODY: No hydron ephros is. Electr onical ly signed by: Evin tenorio MD 2024 08:17 AM EDT RP Workst ation: [id number] Dictat ed By: Evin Holman Transc ribed By: Transc ribed On: 025 8:17 AM Electr onical ly signed by: Evin Holman 025 Thank you for referr DENISE Good to [facility] al. Legall y authen ticate d by FIORELLA LUI 2024-0 11-06 08:17: 18 CC'ed Logic: Orderi ng Provid er: MARIBELL MORATAYA Attend ing Provid er: MARIBELL MORATAYA Referr ing Provid er: MARIBELL MORATAYA Admitt ing Provid er: MARIBELL MORATAYA [email or web address] [facility] [address], [place], [address], 11/10/2024 14:12:51 Result Notes None recorded. Problems Name Problem SNOMED Code Status Onset Date Resolution Date Notes Provider Name and Address Organization Details Recorded Time Dysuria 80040075 Active 2024 RAFIA REYNA MD [address], [place], [address] , [facility] & [place] 14:50:10 Recurrent urinary tract infection 279976360 Active 2024 RAFIA REYNA MD [address], [place], [address] , [facility] & [place] 14:50:14 Flank pain 290197050 Active [address], [place], [address] , [facility] - [facility] & [place] 14:50:19 Microscopic hematuria 273026581 Active [address], [facility] [address] , [facility] - [facility] & [place] 5 14:50:25 Acute urinary tract infection 712626501 Active [address], [facility] [address] , [facility] & [place] 09:16:51 Problem Notes None recorded. Procedures Surgical History Date Name Laterality Status Provider Name and Address Organization Details Recorded Time 11/13/19 Cystoscopy-Femal e completed MD [address], [place], [address], [place] - [facility] & [place] 11/12/2024 09:57:15 Cataract Surgery completed Noemi Krause - [facility] & [place] 10/29/2024 16:22:47 breast procedure completed Noemi Krause - [facility] & [place] 10/29/2024 16:22:57 hysterectomy completed Noemi Hill [facility] & [place] 10/29/2024 16:25:09 Imaging Results None recorded. Procedure Notes None recorded. Medical Equipment None Reported. Allergies No known drug allergies Medications Name Sig Start Date Stop Date Status Note LastModified by Organization Details LastModified Time amoxicillin 500 mg capsule TAKE 2 CAPSULES BY MOUTH TWICE DAILY active Not Available Not Available No t Available gabapentin 600 mg tablet TAKE 1 TABLET BY MOUTH ONCE DAILY AT BEDTIME FOR NEUROPATH Y FOR 90 DAYS active Not Available Not Available No t Available doxycycline hyclate 100 mg capsule TAKE 1 CAPSULE BY MOUTH TWICE DAILY active Not Available Not Available No t Available atorvastati n 20 mg tablet TAKE 1 TABLET BY MOUTH AT BEDTIME NIGHTLY active Not Available Not Available No t Available loperamide 2 mg capsule TAKE 1 CAPSULE BY MOUTH EVERY 4 HOURS NEEDED active Not Available Not Available No t Available lisinopril 20 mg tablet TAKE 1 TABLET BY MOUTH ONCE DAILY active Not Available Not Available No t Available Hiprex 1 gram tablet Take 1 tablet twice a day by oral route for 30 days. 2024 active Not Available Not Available Not Avai lable Pyridium 200 mg tablet Take 1 tablet 3 times a day by oral route as needed for 3 days, for burning with urination . 2024 active Not Available Not Available Not Avai lable clopidogrel 75 mg tablet TAKE 1 TABLET BY MOUTH ONCE DAILY active Not Available Not Available No t Available ciprofloxac in 250 mg tablet TAKE 1 TABLET BY MOUTH TWICE DAILY active Not Available Not Available No t Available levofloxaci n 250 mg tablet TAKE 1 TABLET BY MOUTH ONCE DAILY active Not Available Not Available No t Available ofloxacin 0.3 % ear drops INSTILL 10 DROP IN LEFT EAR ONCE DAILY FOR 7 DAYS FOR INFECTION active Not Available Not Available No t Available cephalexin 500 mg capsule TAKE 2 CAPSULES BY MOUTH TWICE DAILY active Not Available Not Available No t Available estradiol 0.01% (0.1 mg/gram) vaginal cream INSERT 1 GRAM 3 TIMES A WEEK BY VAGINAL ROUTE active Not Available Not Available No t Available ondansetron 4 mg disintegrat ing tablet DISSOLVE 1 TABLET IN MOUTH EVERY 8 HOURS NEEDED FOR NAUSEA AND VOMITING active Not Available Not Available No t Available Bactrim DS 800 mg-160 mg tablet Take 1 tablet every 12 hours by oral route for 7 days. 11/17 completed Not Available Not Available Not Available memantine 5 mg tablet TAKE 1 TABLET BY MOUTH ONCE DAILY FOR MEMORY active Not Available Not Available No t Available nitrofurant oin monohydrate /macrocryst als 100 mg capsule TAKE 1 CAPSULE BY MOUTH TWICE DAILY WITH FOOD 10/26 completed Not Available Not Available Not Available aspirin active Not Available Not Avail able Not Available calcium active Not Available Not Avail able Not Available metformin active Not Available Not Estela ilable Not Available Toujeo Max U-300 SoloStar active Not Available Not Available Not Available BD Soraya 2nd Gen Pen Needle 32 gauge x /32 USE 1 PEN NEEDLE ONCE DAILY active Not Available Not Available No t Available Vitals Date Recorded Body weight Oxygen saturation Oxygen saturation in Arterial blood by Pulse oximetry Heart rate Systolic And Diastolic Provider Name and Address Organization Details Last Updated DateTime 5 94285.1 2 g 98 % 98 % 63 /min 120/60 mm[Hg] Mattie Rubio [place] - [facility] - [place] & [place] 09:52:40 Social History None recorded. Functional Status Question Answer Note LastModified by Organizat ion Details LastModified Time Do you use any illicit or recreational drugs? No [email or web address] Information not available 10/29/2024 Do you or have you ever used any other forms of tobacco or nicotine? No Information not available 10/29/2024 What is your level of alcohol consumption? None [email or web address] Information not available 10/29/2024 Mental Status None recorded. Family History Relationship Description Onset Age of this Age Resolved Age Notes LastModified by Organization Details LastModified Time Father Diabetes mellitus [email or web address] Not available 2024 16:19:42 Brother Diabetes mellitus [email or web address] Not available 2024 16:19:54 Sister Diabetes mellitus [email or web address] Not available 2024 16:20:01 Notes:Brother and Sister can cer Medical History Condition Response Diabetes Y Gynecological HistoryNo gynecological history recorded. Obstetrics History GPAL:G 0 P 0 0 0 0 Past Encounters Encounter ID Performer Location Encounter Start Date Encounter Closed Date Diagnosis/Indication Diagnosis SNOMED-CT Code Diagnosis ICD10 Code Diagnosis IMO Codes Diagnosis Note [id number] RAFIA REYNA MD [facility] 00 [address] [facility] [address] [place] [address] 10/29/2024 13:55:45 10/29/2024 14:55:11 Dysuria 82350668 R30.0 18184 Recurrent urinary tract infection 708161621 N39.0 634073 Flank pain 948510977 R10 .9 248341 Microscopic hematuria 19 3047968 R31.29 441800 [id number] RAFIA REYNA MD [facility]1 00 [address] [facility] [address] [place] [address] 11/12/2024 09:26:45 11/12/2024 10:01:06 Recurrent urinary tract infection 995331947 N39.0 837491 Health Concerns Section Related Observation LastModified by Organization Detai ls LastModified Time None Recorded Concern Status LastModified by Organization Details LastModified Time None Recorded Payers Encounter Date Sequence Insurance Name Policy Number Policy Massey Covered Member ID Massey Member ID Guarantor Name 11/12/2024 1 [employer] (MEDICARE REPLACEMENT/A DVANTAGE - HMO) Denise Dent [id number] Denise Dent Notes Date Note Type Note Provider Name and Address Organization Details Recorded Time 11/12/2024 text/html 11/12/24 Patient returns to my office for cystoscopy.Denise Dent is an 89-year-old female who presents for a procedure cystoscopy. Urination has improved following the administration of Bactrim last week. Today espinoza the first day of noticeable improvement, with the patient reporting three to four bathroom visits without pain upon sitting. The patient has been taking prophylactic medication twice daily as prescribed during her previous visit. ----- 10/29/24 55-peml-aaw-female referred to my office for urinary retention possible neurogenic bladder.Denise Dent is an 89-year-old female who presents for a new patient visit. She has been experiencing urinary tract symptoms since July, including burning during urination and urinary urgency and frequency. She has been treated with antibiotics on four separate occasions, but her symptoms have not improved. She denies hematuria, fever, chills, or flank pain. She reports no history of kidney stones. She has a history of diabetes and is currently using insulin. She denies any family history of bladder, ovarian, or uterine cancers. She does not smoke and has no history of smoking. She denies constipation or frequent loose bowel movements. Urine analysis today demonstrates the presence of blood and inflammatory cells. 11/06/24 renal ([facility]): No hydronephrosis. Anechoic cystic lesion to the left kidney measuring 1.4 x 1 x 1.6 cm. No further dedicated follow-up is required for this finding.10/29/24 BUN 11, Cr 0.9, GFR Cytology MDX: Escherichia Coli, Staphylococcus [id number]/16/25 UA: Blood trace, RBC occas, WBC TNTC, Bacteria 3+; UC: Gram negative rods >100,000 CFL/ml05/04/24 UC: Staphylococcus aureus Moderate RAFIA REYNA MD [address], [place], [address], [facility] 11/12/2024 12:58:16 OBGyn Episode No OBEpisode recorded.
--- OUTSIDE RECORDS SUMMARY | 2024-12-24 09:50 | XMS_ITS | Data Portability ---
Author Organization [place] [facility] [place] [facility] ADMIN Address [address] [place] [phone] Assessment Encounter Date Assessment Date Assessment LastModified by Organization Details LastModified Time 10/29/2024 10/29/2024 ASSESSMENT: Denise Dent is an 89-year-old female with persistent urinary tract symptoms, including burning during urination, urgency, and frequency, despite multiple courses of antibiotics. PLAN: 1. Send urine for PCR testing to identify potential pathogens with greater accuracy. Results are expected within 24 hours, or by Saturday if delayed. 2. Prescribe methenamine (Hiprex) to prevent bacterial growth in the urine. This medication is not an antibiotic but converts to formaldehyde in the urine, acting as a potent antiseptic. 3. Prescribe Pyridium for short-term relief of burning symptoms. Advise the patient to use this medication for no more than three days due to potential side effects. 4. Order an ultrasound to evaluate kidney structure and function. Radiology will contact the patient within the next week or two to schedule the study. 5. Recommend follow-up in two weeks to assess progress and potentially perform cystoscopy to evaluate bladder structure if symptoms persist. 6. Order blood work to assess kidney function and ensure the safety of prescribed medications. Please note this report was created using voice recognition/text compilation software documentation services during the encounter with the patient. [email or web address] Not available 10/29/2024 14:50:26 11/12/2024 11/12/2024 ASSESSMENT: Denise Dent is an [...] the patient. [email or web address] Not available 11/12/2024 09:56:58 12/11/2024 12/11/2024 ASSESSMENT: Denise Dent is an 89-year-old female with burning pain during urination. PLAN: 1. Continue Hiprex for prophylaxis. 2. Prescribe Estrace cream to be applied topically to the urethra three times a week (Saturday, Saturday, and Saturday) to address tissue atrophy and discomfort and to help prevent infections. 3. Send urine for PCR testing to detect any bacterial presence. Results are expected by Saturday at the earliest. 4. Prescribe Pyridium for symptomatic relief of burning pain during urination. The medication can be taken up to three times a day as needed for three days, followed by a break of a few days. Refills will be provided for additional courses if needed. 5. Follow up with the patient via phone in three weeks to assess improvement in symptoms and ensure the discomfort is resolving. Please note this report was created using voice recognition/text compilation software documentation services during the encounter with the patient. [email or web address] Not available 12/11/2024 10:04:44 Plan of Treatment Reminders Order Date Submit Date Provider Last Modified By Organization Details Last Modified Time Details Appointments TELEPHONI C VISIT 15 2024 08:00A Merle REYNA MD Not available Not available Not available OV EST 15 2024 10:15A Merle REYNA MD Not available Not available Not available Lab urinalysi s, dipstick [address] [facility], [address], [place], [address], 12/11/2024 10:05:18 urinalysi s, dipstick [address] [facility], [address], [place], [address], 11/12/2024 09:57:34 BMP, serum or plasma 2024 025 [email or web address] 7 [facility] (Registration ), [address], [place], [address], 11/13/2024 09:36:19 urinalysi s, dipstick [address] [facility], [address], [place], [address], 10/29/2024 14:51:12 Referral None recorded. Procedures bladder scan (PROC) [address] [facility], [address], [place], [address], 12/11/2024 10:05:18 bladder scan (PROC) [address] [facility], [address], [place], [address], 10/29/2024 14:51:12 Surgeries None recorded. Imaging US, renal 2024 025 [email or web address] 7 [facility] (Centralized Scheduling), [address] , [place], [address], 11/13/2024 09:35:09 Medication Orders Pyridium 200 mg tablet 2024 025 [facility], [address] [place], [address], 12/11/2024 10:05:28 Estrace 0.01% (0.1 mg/gram) vaginal cream 2024 025 [facility], [address] [place], [address], 12/11/2024 10:05:26 Hiprex 1 gram tablet 2024 025 [facility], [address], [address], 11/12/2024 09:57:39 Pyridium 200 mg tablet 2024 025 [facility], [address], [address], 11/08/2024 05:01:44 Hiprex 1 gram tablet 2024 025 [facility], [address], [address], 10/29/2024 14:51:22 Patient TargetsNo targets recorded. Patient InstructionsNo instructions recorded. Reason for Referral None Reported. Results Created Date Observation Date Name Description Value Unit Range Abnormal Flag Note LastModifiedBy Organization Detail LastModifiedTime 10/30/1910/29/2024 BASIC METAB OLIC PANEL sodium 128 mmol/ L 136-14 5 low Not Available [facility] ([facility]) [address] [place], [address], 10/29/2024 16:19:19 10/30/19 25 10/29/2024 BASIC METAB OLIC PANEL potassium 4.0 mmol/ L 3.6-5. 0 Not Available [facility] ([facility]) [address] [place], [address], 10/29/2024 16:19:19 10/30/19 25 10/29/2024 BASIC METAB OLIC PANEL chloride 92 mmol/ L 98-107 low Not Available [facility] ([facility]) [address] [place], [address], 10/29/2024 16:19:19 10/30/19 25 10/29/2024 BASIC METAB OLIC PANEL carbon dioxide 30.4 mmol/ L 21.0-3 2.0 Not Available [facility] ([facility]) [address] [place], [address], 10/29/2024 16:19:19 10/30/19 25 10/29/2024 BASIC METAB OLIC PANEL anion gap 9.6 Not Available [facility] ([facility]) [address], [place], [address], 10/29/2024 16:19:19 10/30/19 25 10/29/2024 BASIC METAB OLIC PANEL glucose 432 mg/dL 70-120 high Not Available [facility] ([facility]) [address], [place], [address], 10/29/2024 16:19:19 10/30/19 25 10/29/2024 BASIC METAB OLIC PANEL BUN 11 mg/dL 7-18 Not Available [facility] ([facility]) [address], [place], [address], 10/29/2024 16:19:19 10/30/19 25 10/29/2024 BASIC METAB OLIC PANEL creatinine 0.9 mg/dL 0.6-1. 3 Not Available [facility] ([facility]) [address], [place], [address], 10/29/2024 16:19:19 10/30/19 25 10/29/2024 BASIC METAB [...] hanson ing kiney funct ion. Not Available [facility] ([facility]) [address] , [place], [address], 10/29/2024 16:19:19 10/30/19 25 10/29/2024 BASIC METAB OLIC PANEL osmolality (calculated) 285 mOsm/ kg 275-30 1 OSMOL ALITY IS A CALCU LATIO N UTILI ZING THE SERUM /PLAS MA SODIU M, GLUCO SE AND UREA NITRO GEN (BUN) LEVEL S. FOR THE MOST ACCUR ATE RESUL T A MEASU RED SERUM OSMOL ALITY IS CAMPBELL CARRENO. Not Available [facility] ([facility]) [address] [facility], [place], [address], 10/29/2024 16:19:19 10/30/19 25 10/29/2024 BASIC METAB OLIC PANEL calcium 9.0 mg/dL 8.5-10 .5 Not Available [facility] ([facility]) [address] [facility], [place], [address], 10/29/2024 16:19:19 10/30/19 25 10/29/2024 urina lysis , dipst ick Leukocytes (reference range) small Not Available [facility] [place] [address] [address] [facility] [address], [place], [address], 10/29/2024 14:37:44 10/30/19 25 10/29/2024 urina lysis , dipst ick Nitrite (reference range:) negati ve Not Available [place] [address] [address] [facility] [address], [place], [address], 10/29/2024 14:37:44 10/30/19 25 10/29/2024 urina lysis , dipst ick Urobilinogen (reference range) 0.2 Not Available [facility] [place] [address] [address] [facility] [address], [place], [address], 10/29/2024 14:37:44 10/30/19 25 10/29/2024 urina lysis , dipst ick Protein (reference range) negati ve Not Available [place] [address] [address] [facility] [address], [place], [address], 10/29/2024 14:37:44 10/30/19 25 10/29/2024 urina lysis , dipst ick pH (reference range 5-8.5) 6.0 Not Available [facility] [place] [address] [address] [facility] [address], [place], [address], 10/29/2024 14:37:44 10/30/19 25 10/29/2024 urina lysis , dipst ick Blood (reference range:) non-He molyze d: Trace Not Available [place] [address] [address] [facility] [address], [place], [address], 10/29/2024 14:37:44 10/30/19 25 10/29/2024 urina lysis , dipst ick Specific [place] (reference range) 1.005 Not Available [facility] [facility] [address] [address] [facility] [address], [place], [address], 10/29/2024 14:37:44 10/30/19 25 10/29/2024 urina lysis , dipst ick Ketone (reference range) negati ve Not Available [place] [address] [address] [facility] [address], [place], [address], 10/29/2024 14:37:44 10/30/19 25 10/29/2024 urina lysis , dipst ick Bilirubin (reference range) negati ve Not Available [place] [address] [address] [facility] [address], [place], [address], 10/29/2024 14:37:44 10/30/19 25 10/29/2024 urina lysis , dipst ick Glucose (reference range) 1000 Not Available [place] [address] [address] [facility] [address], [place], [address], 10/29/2024 14:37:44 10/30/19 25 10/29/2024 urina lysis , dipst ick Color (reference range: yellow-brown ) Yellow Not Available [place] [address], [place], [address], 10/29/2024 14:37:44 10/30/19 25 10/29/2024 bladd er scan (PROC ) Calculated Residual Urine: 27ml Not Available [place] [address] [address] [facility] [address], [place], [address], 10/29/2024 14:37:27 11/13/19 25 11/12/2024 urina lysis , dipst ick Leukocytes (reference range) negati ve Not Available [place] [address] [address] [facility] [address], [place], [address], 11/12/2024 09:54:28 11/13/19 25 11/12/2024 urina lysis , dipst ick Nitrite (reference range:) negati ve Not Available [place] [address] [address] [facility] [address], [place], [address], 11/12/2024 09:54:28 11/13/19 25 11/12/2024 urina lysis , dipst ick Urobilinogen (reference range) 0.2 Not Available [place] [address] [address] [facility] [address], [place], [address], 11/12/2024 09:54:28 11/13/19 25 11/12/2024 urina lysis , dipst ick Protein (reference range) negati ve Not Available [place] [address] [address] [facility] [address], [place], [address], 11/12/2024 09:54:28 11/13/19 25 11/12/2024 urina lysis , dipst ick pH (reference range 5-8.5) 6.5 Not Available [place] [address] [address] [facility] [address], [place], [address], 11/12/2024 09:54:28 11/13/19 25 11/12/2024 urina lysis , dipst ick Blood (reference range:) non-He molyze d: Trace Not Available [place] [address] [address] [facility] [address], [place], [address], 11/12/2024 09:54:28 11/13/19 25 11/12/2024 urina lysis , dipst ick Specific [place] (reference range) 1.010 Not Available [place] [address] [address] [facility] [address], [place], [address], 11/12/2024 09:54:28 11/13/19 25 11/12/2024 urina lysis , dipst ick Ketone (reference range) negati ve Not Available [place] [address] [address] [facility] [address], [place], [address], 11/12/2024 09:54:28 11/13/19 25 11/12/2024 urina lysis , dipst ick Bilirubin (reference range) negati ve Not Available [place] [address] [address] [facility] [address], [place], [address], 11/12/2024 09:54:28 11/13/19 25 11/12/2024 urina lysis , dipst ick Glucose (reference range) 1000 Not Available [place] [address] [address] [facility] [address], [place], [address], 11/12/2024 09:54:28 11/13/19 25 11/12/2024 urina lysis , dipst ick Color (reference range: yellow-brown ) Yellow Not Available [place] [address] [address] [facility] [address], [place], [address], 11/12/2024 09:54:28 12/12/19 25 12/11/2024 urina lysis , dipst ick Leukocytes (reference range) negati ve Not Available [place] [address] [address] [facility] [address], [place], [address], 12/11/2024 09:53:53 12/12/19 25 12/11/2024 urina lysis , dipst ick Nitrite (reference range:) negati ve Not Available [place] [address] [address] [facility] [address], [place], [address], 12/11/2024 09:53:53 12/12/19 25 12/11/2024 urina lysis , dipst ick Urobilinogen (reference range) 0.2 Not Available [facility] [place] [address] [address] [facility] [address], [place], [address], 12/11/2024 09:53:53 12/12/19 25 12/11/2024 urina lysis , dipst ick Protein (reference range) negati ve Not Available [place] [address] [address] [facility] [address], [place], [address], 12/11/2024 09:53:53 12/12/19 25 12/11/2024 urina lysis , dipst ick pH (reference range 5-8.5) 7.0 Not Available [facility] [place] [address] [address] [facility] [address], [place], [address], 12/11/2024 09:53:53 12/12/19 25 12/11/2024 urina lysis , dipst ick Blood (reference range:) negati ve Not Available [place] [address] [address] [facility] [address], [place], [address], 12/11/2024 09:53:53 12/12/19 25 12/11/2024 urina lysis , dipst ick Specific [place] (reference range) 1.005 Not Available [facility] [address] [address] [facility] [address], [place], [address], 12/11/2024 09:53:53 12/12/19 25 12/11/2024 urina lysis , dipst ick Ketone (reference range) negati ve Not Available [place] [address], [place], [address], 12/11/2024 09:53:53 12/12/19 25 12/11/2024 urina lysis , dipst ick Bilirubin (reference range) negati ve Not Available [place] [address] [address] [facility] [address], [place], [address], 12/11/2024 09:53:53 12/12/19 25 12/11/2024 urina lysis , dipst ick Glucose (reference range) 1000 Not Available [place] [address] [address] [facility] [address], [place], [address], 12/11/2024 09:53:53 12/12/19 25 12/11/2024 urina lysis , dipst ick Color (reference range: yellow-brown ) Yellow Not Available [place] [address] [address] [facility] [address], [place], [address], 12/11/2024 09:53:53 12/12/19 25 12/11/2024 bladd er scan (PROC ) Calculated Residual Urine: 6ml Not Available [place] [address] [address] [facility] [address], [place], [address], 12/11/2024 09:53:38 11/07/1911/06/2024 renal ,bila teral [facility] [address] [place] [address] Phone: Fax: Name: DENISE DENT Exam Date: 025 : 938 Age 89 years Gender : F Access ion: [id number] Physic abimael: RAFIA REYNA Facili ty: [facility] Facili ty HSV: Outpat ient Exam: RENAL, BILATE RAL US PROCED URE: US KIDNEY BILATE RAL, 025 7:11 AM CDT CLINIC AL INDICA TION: unspec ified abd pain. COMPAR EILNOR: None FINDIN GS: Right kidney measur es [...] Thank you for referr DENISE Good to [facility] al. Legall y authen ticate d by FIORELLA LUI 2024-0 11-06 08:17: 18 CC'ed Logic: Orderi ng Provid er: MARIBELL MORATAYA Attend ing Provid er: MARIBELL MORATAYA Referr ing Provid er: MARIBELL MORATAYA Admitt ing Provid er: MARIBELL MORATAYA [email or web address] [facility] - [facility] Therapy [address], [place], [address], 11/10/2024 14:12:51 Result Notes None recorded. Problems Name Problem SNOMED Code Status Onset Date Resolution Date Notes Provider Name and Address Organization Details Recorded Time Dysuria 40030157 Active 2024 RAFIA REYNA MD [address], [place], [address] , [facility] 14:50:10 Recurrent urinary tract infection 210046115 Active [address], [facility] [address] [facility] [place] [facility] & [place] 14:50:14 Flank pain 017695953 Active [address], [place] [address] [place] [address] [place] - [facility] & [place] 14:50:19 Microscopic hematuria 524452928 Active [address], [facility] [address] , [place] - [facility] & [place] 14:50:25 Acute urinary tract infection 866534819 Active 2024 MD [address] [id number] [place] - [facility] & [place] 09:16:51 Problem Notes None recorded. Procedures Surgical History Date Name Laterality Status Provider Name and Address Organization Details Recorded Time 11/13/19 Cystoscopy-Femal e completed MD [address], [facility] [address], [place] - [facility] & [place] 11/12/2024 09:57:15 Cataract Surgery completed Noemi Krause - [facility] - [place] & [place] 10/29/2024 16:22:47 breast procedure completed Noemi Krause - [facility] - [place] & [place] 10/29/2024 16:22:57 hysterectomy completed Noemi NORTH - [facility] - [place] & [place] 10/29/2024 16:25:09 Imaging Results None recorded. Procedure [...] 2nd Gen Pen Needle 32 gauge x USE 1 PEN NEEDLE ONCE DAILY active Not Available Not Available No t Available Vitals Date Recorded Body weight Oxygen saturation Oxygen saturation in Arterial blood by Pulse oximetry Heart rate Systolic And Diastolic Provider Name and Address Organization Details Last Updated DateTime 5 97956 g 97 % 97 % 73 /min 128/70 mm[Hg] Noemi Rm [facility] & [place] 5 14:36:58 Date Recorded Body weight Oxygen saturation Oxygen saturation in Arterial blood by Pulse oximetry Heart rate Systolic And Diastolic Provider Name and Address Organization Details Last Updated DateTime 5 11731.1 2 g 98 % 98 % 63 /min 120/60 mm[Hg] [facility] [place] [facility] [place] 5 09:52:40 Date Recorded Body height Body mass index (BMI) Body weight Oxygen saturation Oxygen saturation in Arterial blood by Pulse oximetry Heart rate Systolic And Diastolic Provider Name and Address Organization Details Last Updated DateTime 5 154.94 cm 21 kg/m2 68900.4 7 g 97 % 97 % 104 /min 122/76 mm[Hg] [facility] [place] [facility] [place] 5 09:53:01 Social History None recorded. Functional Status Question Answer Note LastModified by Organizat ion Details LastModified Time Do you use any illicit or recreational drugs? No [email or web address] Information not available 10/29/2024 Do you or have you ever used any other forms of tobacco or nicotine? No [email or web address] Information not available 10/29/2024 What is your level of alcohol consumption? None [email or web address] Information not available 10/29/2024 Mental Status None recorded. Family History Relationship Description Onset Age of this Age Resolved Age Notes LastModified by Organization Details LastModified Time Father Diabetes mellitus Not available 2024 16:19:42 Brother Diabetes mellitus [email or web address] Not available 2024 16:19:54 Sister Diabetes mellitus [email or web address] Not available 2024 16:20:01 Notes:Brother and Sister can cer Medical History Condition Response Diabetes Y Gynecological HistoryNo gynecological history recorded. Obstetrics History GPAL:G 0 P 0 0 0 0 Past Encounters Encounter ID Performer Location Encounter Start Date Encounter Closed Date Diagnosis/Indication Diagnosis SNOMED-CT Code Diagnosis ICD10 Code Diagnosis IMO Codes Diagnosis Note [id number] RAFIA REYNA MD [facility] 00 [address] [facility] [address] [place] [address] 10/29/2024 13:55:45 10/29/2024 14:55:11 Dysuria 56305239 R30.0 62949 Recurrent urinary tract infection 230716842 N39.0 775700 Flank pain 163258229 R10 .9 548221 Microscopic hematuria 19 9340472 R31.29 911246 [id number] RAFIA REYNA MD [facility]-1 00 [address] [facility] [address] [place] [address] 11/12/2024 09:26:45 11/12/2024 10:01:06 Recurrent urinary tract infection 563504628 N39.0 526071 [id number] RAFIA REYNA MD [facility] [address] 12/11/2024 09:29:18 12/11/2024 10:07:39 Recurrent urinary tract infection 442687580 N39.0 112810 Dysuria 46850399 R30.0 79671 Health Concerns Section Related Observation LastModified by Organization Detai ls LastModified Time None Recorded Concern Status LastModified by Organization Details LastModified Time None Recorded Advance Directives Directive None Recorded Payers Insurance Date Sequence Insurance Name Policy Number Policy Massey Covered Member ID Massey Member ID Guarantor Name 12/16/2024 1 [employer] (MEDICARE REPLACEMENT/A DVANTAGE - HMO) Denise Dent [id number] Denise Dent Notes Date Note Type Note Provider Name and Address Organization Details Recorded Time 10/29/2024 text/html 10/29/24 [id number]-prl-female referred to my office for urinary retention [...] the presence of blood and inflammatory cells. 09/07/24 UA: Blood trace, RBC occas, WBC TNTC, Bacteria 3+; UC: Gram negative rods >100,000 CFL/ml05/04/24 UC: Staphylococcus aureus Moderate RAFIA REYNA MD [address] [facility], [place], [address], [facility] - NT - [place] & [place] 11/03/2024 07:29:29 11/12/2024 text/html 11/12/24 Patient returns to my [...] prescribed during her previous visit. ----- 10/29/24 [id number]-ugv-female referred to my office for urinary retention [...] of blood and inflammatory cells. 11/06/24 renal ([facility]): No hydronephrosis. Anechoic cystic lesion to the left kidney measuring 1.4 x 1 x 1.6 cm. No further dedicated follow-up is required for this finding.10/29/24 BUN 11, Cr 0.9, GFR Cytology MDX: Escherichia Coli, Staphylococcus [id number]/16/25 UA: Blood trace, RBC occas, WBC TNTC, Bacteria 3+; UC: Gram negative rods >100,000 CFL/ml05/04/24 UC: Staphylococcus aureus Moderate RAFIA REYNA MD [address] [facility], [place], [address], [facility] 11/12/2024 12:58:16 12/11/2024 text/html 12/11/24 Patient returns to my office for possible UTI.Denise Dent is an 89-year-old female who presents for a follow-up visit. She was last seen approximately one month ago. She reports experiencing burning pain during urination, which occurs throughout the process of urination and is most pronounced at the onset. She denies any increased frequency or urgency of urination. She is currently taking Hiprex as prescribed for prophylaxis. There is no history of cervical, ovarian, uterine, or other cancers. 11/12/24 Patient returns to my office for [...] daily as prescribed during her previous visit. 10/29/[id number]-[id number]- female referred to my office for urinary retention [...] pain. She reports no history of kidney stones.She has a history of diabetes and is currently using insulin. She denies any family history of bladder, ovarian, or uterine cancers. She does not smoke and has no history of smoking. She denies constipation or frequent loose bowel movements.Urine analysis today demonstrates the presence of blood and inflammatory cells. 10/23 08/16 US renal ([facility]): No hydronephrosis. Anechoic cystic lesion to the left kidney measuring 1.4 x 1 x 1.6 cm. No further dedicated follow-up is required for this finding.10/29/24 BUN 11, Cr 0.9, GFR Cytology MDX: Escherichia Coli, Staphylococcus /16/25 UA: Blood trace, RBC occas, WBC TNTC, Bacteria 3+; UC: Gram negative rods >100,000 CFL/ml05/04/24 UC: Staphylococcus aureus Moderate RAFIA REYNA MD [address] [facility], [place], [address], [facility] & [place] 12/15/2024 07:31:35 OBGyn Episode Ob Episode Information Episode Created Date Number of Fetuses Patient Bloodtype Patient rh Status Prepregnancy Weight lbs Domestic Partner Domestic Partner Phone Father Name Sheltered Workshop Worker Status 10/30/19 25 3 CLOSED Fetus Data First Name Last Name Admitted to NICU Weight (g) Sex Living Outcome Pediatric Complications Fetus ID Race Codes Race Delivery Type [id number] Zi Calculation Initial Zi Date Initial Exam Date Initial Exam Provider Initial Ultrasound Date Last Menstrual Period Date Ultra Sound Weeks Gestation 0 Eighteen To Twenty Week Zi Update Ultra Sound Date Fundal Height At Umbil Quickening Date Ultra Sound Latest Weeks Gestation Final Zi Confirmed By Final Zi Confirmed Date Final Zi Date Ultra Sound Latest Days Gestation 0 0 Menstrual History Last Menstrual Date Menses Monthly On Bcp Conception Prior Menses Frequency Hcg Plus Date Menarche Onset Age Delivery Information Delivery Date Delivery Type Labor Anesthesia Weeks Gestation Incision Type Labor Labor Length Hrs Delivered By Post Complications Tubal Sterilization Discharge Date Comments 0 Discharge Information Feeding Method Contraceptive Method Maternal HG B and HCT Levels
--- OUTSIDE RECORDS SUMMARY | 2024-12-24 09:50 | XMS_ITS | Continuity of Care Document ---
Author Organization [facility] Address [address] [address] Assessment Encounter Date Assessment Date Assessment LastModified [...] the patient. [email or web address] Not available 10/29/2024 14:50:26 Plan of Treatment Reminders Order Date Submit Date Provider Last Modified By Organization Details Last Modified Time Details Appointments TELEPHONI C VISIT 15 2024 08:00A Merle REYNA MD Not available Not available Not available OV EST 15 2024 10:15A Merle REYNA MD Not available Not available Not available Lab BMP, serum or plasma 2024 [facility]25 [email or web address] ([facility] ), [address], [place], [address], 11/13/2024 09:36:19 urinalysi s, dipstick [address] [facility], [address], [place], [address], 10/29/2024 14:51:12 Referral None recorded. Procedures bladder scan (PROC) [address] [facility], [address], [place], [address], 10/29/2024 14:51:12 Surgeries None recorded. Imaging US, renal 2024 025 [email or web address] 7 [facility] (Centralized Scheduling), [address] , [place], [address], 11/13/2024 09:35:09 Medication Orders Pyridium 200 mg tablet 2024 025 [facility], [address] [place], [address], 11/08/2024 05:01:44 Hiprex 1 gram tablet 2024 025 [facility]91, [address] [place], [address], 10/29/2024 14:51:22 Patient TargetsNo targets recorded. Patient InstructionsNo instructions recorded. Reason for Referral None Reported. Results Created Date Observation Date Name Description Value Unit Range Abnormal Flag Note LastModifiedBy Organization Detail LastModifiedTime 10/30/19 25 10/29/2024 BASIC METAB OLIC PANEL sodium 128 mmol/ L 136-14 5 low Not Available [facility] ([facility]) [address], [place], [address], 10/29/2024 16:19:19 10/30/19 25 10/29/2024 BASIC METAB OLIC PANEL potassium 4.0 mmol/ L 3.6-5. 0 Not Available [facility] ([facility]) [address], [place], [address], 10/29/2024 16:19:19 10/30/19 25 10/29/2024 BASIC METAB OLIC PANEL chloride 92 mmol/ L 98-107 low Not Available [facility] ([facility]) [address], [place], [address], 10/29/2024 16:19:19 10/30/19 25 10/29/2024 BASIC METAB OLIC PANEL carbon dioxide 30.4 mmol/ L 21.0-3 2.0 Not Available [facility] ([facility]) [address] [place], [address], 10/29/2024 16:19:19 10/30/19 25 10/29/2024 BASIC METAB OLIC PANEL anion gap 9.6 Not Available [facility] ([facility]) [address] , [place], [address], 10/29/2024 16:19:19 10/30/19 25 10/29/2024 BASIC METAB OLIC PANEL glucose 432 mg/dL 70-120 high Not Available [facility] ([facility]) [address] [place], [address], 10/29/2024 16:19:19 10/30/19 25 10/29/2024 BASIC METAB OLIC PANEL BUN 11 mg/dL 7-18 Not Available [facility] ([facility]) [address] [place], [address], 10/29/2024 16:19:19 10/30/19 25 10/29/2024 BASIC METAB OLIC PANEL creatinine 0.9 mg/dL 0.6-1. 3 Not Available [facility] ([facility]) [address], [place], [address], 10/29/2024 16:19:19 10/30/19 25 10/29/2024 BASIC METAB [...] hanson ing kiney funct ion. Not Available [facility] ([facility]) [address] , [place], [address], 10/29/2024 16:19:19 10/30/19 25 10/29/2024 BASIC METAB OLIC PANEL osmolality (calculated) 285 mOsm/ kg 275-30 1 OSMOL ALITY IS A CALCU LATIO N UTILI ZING THE SERUM /PLAS MA SODIU M, GLUCO SE AND UREA NITRO GEN (BUN) LEVEL S. FOR THE MOST ACCUR ATE RESUL T A MEASU RED SERUM OSMOL ALITY IS SUGGE STED. Not Available [facility] ([facility]) [address] , [place], [address], 10/29/2024 16:19:19 10/30/19 25 10/29/2024 BASIC METAB OLIC PANEL calcium 9.0 mg/dL 8.5-10 .5 Not Available [facility] ([facility]) [address], [place], [address], 10/29/2024 16:19:19 10/30/19 25 10/29/2024 urina lysis , dipst ick Leukocytes (reference range) small Not Available [facility] [address], [place], [address], 10/29/2024 14:37:44 10/30/19 25 10/29/2024 urina lysis , dipst ick Nitrite (reference range:) negati ve Not Available [place] [address] [address] [facility] [address], [place], [address], 10/29/2024 14:37:44 10/30/19 25 10/29/2024 urina lysis , dipst ick Urobilinogen (reference range) 0.2 Not Available [facility] [place] [address] [address] [facility] 100, [place], [address], 10/29/2024 14:37:44 10/30/19 25 10/29/2024 urina lysis , dipst ick Protein (reference range) negati ve Not Available [place] [address] [address] [facility] 100, [place], [address], 10/29/2024 14:37:44 10/30/19 25 10/29/2024 urina lysis , dipst ick pH (reference range 5-8.5) 6.0 Not Available [facility] [place] [address] [address] [facility] 100, [place], [address], 10/29/2024 14:37:44 10/30/19 25 10/29/2024 urina lysis , dipst ick Blood (reference range:) non-He molyze d: Trace Not Available [place] [address] [address] [facility] 100, [place], [address], 10/29/2024 14:37:44 10/30/19 25 10/29/2024 urina lysis , dipst ick Specific [place] (reference range) 1.005 Not Available [facility] [place] [address] [address] [facility] 100, [place], [address], 10/29/2024 14:37:44 10/30/19 25 10/29/2024 urina lysis , dipst ick Ketone (reference range) negati ve Not Available [place] [address] [address] [facility] 100, [place], [address], 10/29/2024 14:37:44 10/30/19 25 10/29/2024 urina lysis , dipst ick Bilirubin (reference range) negati ve Not Available [place] [address] [address] [facility] 100, [place], [address], 10/29/2024 14:37:44 10/30/19 25 10/29/2024 urina lysis , dipst ick Glucose (reference range) 1000 Not Available [place] [address] [address] [facility] 100, [place], [address], 10/29/2024 14:37:44 10/30/19 25 10/29/2024 urina lysis , dipst ick Color (reference range: yellow-brown ) Yellow Not Available [place] [address] [address] [facility] 100, [place], [address], 10/29/2024 14:37:44 10/30/19 25 10/29/2024 bladd er scan (PROC ) Calculated Residual Urine: 27ml Not Available [place] [address] [address] [facility] 100, [place], [address], 10/29/2024 14:37:27 11/07/19 25 11/06/2024 renal ,bila teral [facility] [address] [place] [address] Phone: Fax: Name: DENISE DENT Exam Date: 025 : 938 Age 89 years Gender : F Access ion: [id number] Physic abimael: ART, RAFIA [facility]ili ty: [facility] Facili ty HSV: Outpat ient Exam: [...] Thank you for referr DENISE Good to [facility] al. Legall y authen ticate d by FIORELLA LUI 2024-0 11-06 08:17: 18 CC'ed Logic: Orderi ng Provid er: MARIBELL MORATAYA Attend ing Provid er: MARIBELL MORATAYA Referr ing Provid er: MARIBELL Knightitt ing Provid er: MARIBELL MORATAYA [email or web address] [facility] - Physical Therapy [address], [place], [address], 11/10/2024 14:12:51 Result Notes None recorded. Problems Name Problem SNOMED Code Status Onset Date Resolution Date Notes Provider Name and Address Organization Details Recorded Time Dysuria 22037124 Active 2024 RAFIA REYNA MD [address], [place], [address] , [facility] 14:50:10 Recurrent urinary tract infection 353706589 Active [address], [place], [address] , [place] - [facility] [place] [facility] [place] 14:50:14 Flank pain 758093303 Active [address], [place], [address] , [place] [facility] [place] [facility] [place] 14:50:19 Microscopic hematuria 968652702 Active [address], [place], [address] , [place] [facility] & [place] 14:50:25 Acute urinary tract infection 190513564 Active [address], [place], [address] , [place] [facility] & [place] 09:16:51 Problem Notes None recorded. Procedures Surgical History Date Name Laterality Status Provider Name and Address Organization Details Recorded Time 11/13/19 Cystoscopy-Femal e completed MD [address], [place], [address], [place] [facility] & [place] 11/12/2024 09:57:15 Cataract Surgery completed Noemi Krause - [facility] - [place] & [place] 10/29/2024 16:22:47 breast procedure completed Noemi Krause - [facility] - [place] [facility] [place] 10/29/2024 16:22:57 hysterectomy completed Noemi NORTH - [facility] - [place] & [place] 10/29/2024 16:25:09 Imaging Results None recorded. Procedure [...] 2nd Gen Pen Needle 32 gauge x 32 USE 1 PEN NEEDLE ONCE DAILY active Not Available Not Available No t Available Vitals Date Recorded Body weight Oxygen saturation Oxygen saturation in Arterial blood by Pulse oximetry Heart rate Systolic And Diastolic Provider Name and Address Organization Details Last Updated DateTime 5 00285 g 97 % 97 % 73 /min 128/70 mm[Hg] Noemi Rm [place] - [facility] - [place] & [place] 14:36:58 Social History None recorded. Functional Status Question Answer Note LastModified by Organizat ion Details LastModified Time Do you use any illicit or recreational drugs? No [email or web address] Information not available 10/29/2024 Do you or have you ever used any other forms of tobacco or nicotine? No Information not available 10/29/2024 What is your level of alcohol consumption? None [email or web address] Information not available 10/29/2024 Mental Status None recorded. Family History Relationship Description Onset Age of this Age Resolved Age Notes LastModified by Organization Details LastModified Time Father Diabetes mellitus [email or web address] Not available 2024 16:19:42 Brother Diabetes mellitus [email or web address] Not available 2024 16:19:54 Sister Diabetes mellitus [email or web address] Not available 2024 16:20:01 Notes:Brother and Sister can cer Medical History Condition Response Diabetes Y Gynecological HistoryNo gynecological history recorded. Obstetrics History GPAL:G 0 P 0 0 0 0 Past Encounters Encounter ID Performer Location Encounter Start Date Encounter Closed Date Diagnosis/Indication Diagnosis SNOMED-CT Code Diagnosis ICD10 Code Diagnosis IMO Codes Diagnosis Note [id number] RAFIA REYNA MD [facility] [place] [address] 10/29/2024 13:55:45 10/29/2024 14:55:11 Dysuria 34113518 R30.0 94898 Recurrent urinary tract infection 642186760 N39.0 620224 Flank pain 890082228 R10 .9 474730 Microscopic hematuria 19 9011144 R31.29 536724 Health Concerns Section Related Observation LastModified by Organization Detai ls LastModified Time None Recorded Concern Status LastModified by Organization Details LastModified Time None Recorded Payers Encounter Date Sequence Insurance Name Policy Number Policy Massey Covered Member ID Massey Member ID Guarantor Name 10/29/2024 1 [employer] (MEDICARE REPLACEMENT/A DVANTAGE - HMO) Denise Dent [id number] Denise Dent Notes Date Note Type Note Provider Name and Address Organization Details Recorded Time 10/29/2024 text/html 10/29/24 08-yynm-viu-female referred to my office for urinary retention [...] UC: Staphylococcus aureus Moderate RAFIA REYNA MD [address] [facility], [place], [address], [facility] - [place] & [place] 11/03/2024 07:29:29 OBGyn Episode No OBEpisode recorded.
--- OUTSIDE RECORDS SUMMARY | 2024-12-24 09:50 | XMS_ITS | Continuity of Care Document ---
Author Organization [facility] Address [address] [facility] [address] [place] [address] Assessment Encounter Date Assessment Date Assessment LastModified by Organization Details LastModified Time 12/11/2024 12/11/2024 ASSESSMENT: Denise Dent is an [...] available Lab urinalysi s, dipstick 2024 025 [place] [address], 1140 [facility] 100, [place], [address], 12/11/2024 10:05:18 Referral None recorded. Procedures bladder scan (PROC) 2024 025 [place] [address], 114[address] [facility] 100, [place], [address], 12/11/2024 10:05:18 Surgeries None recorded. Imaging None recorded. Medication Orders Pyridium 200 mg tablet 2024 025 [facility], [address], [address], 12/11/2024 10:05:28 Estrace 0.01% (0.1 mg/gram) vaginal cream 2024 025 [facility], [address], [address], 12/11/2024 10:05:26 Patient TargetsNo targets recorded. Patient InstructionsNo instructions recorded. Reason for Referral None Reported. Results Created Date Observation Date Name Description Value Unit Range Abnormal Flag Note LastModifiedBy Organization Detail LastModifiedTime 11/13/19 25 11/12/2024 urina lysis , dipst ick Leukocytes (reference range) negati ve Not Available [place] [address] [address] [facility] 100, [place], [address], 11/12/2024 09:54:28 11/13/19 25 11/12/2024 urina lysis , dipst ick Nitrite (reference range:) negati ve Not Available [place] [address] [address] [facility] 100, [place], [address], 11/12/2024 09:54:28 11/13/19 25 11/12/2024 urina lysis , dipst ick Urobilinogen (reference range) 0.2 Not Available [place] [address] [address] [facility] [address], [place], [address], 11/12/2024 09:54:28 11/13/19 25 11/12/2024 urina lysis , dipst ick Protein (reference range) negati ve Not Available [place] [address] [address] [facility] [address], [place], [address], 11/12/2024 09:54:28 11/13/19 25 11/12/2024 urina lysis , dipst ick pH (reference range 5-8.5) 6.5 Not Available [place] [address] [address] [facility] [address], [place], [address], 11/12/2024 09:54:28 11/13/19 25 11/12/2024 urina lysis , dipst ick Blood (reference range:) non-He molyze d: Trace Not Available [place] [address] [address] [facility] [address], [place], [address], 11/12/2024 09:54:28 11/13/19 25 11/12/2024 urina lysis , dipst ick Specific [place] (reference range) 1.010 Not Available [facility] [place] [address] [address] [facility] [address], [place], [address], 11/12/2024 09:54:28 11/13/19 25 11/12/2024 urina lysis , dipst ick Ketone (reference range) negati ve Not Available [place] [address] [address] [facility] [address], [place], [address], 11/12/2024 09:54:28 11/13/19 25 11/12/2024 urina lysis , dipst ick Bilirubin (reference range) negati ve Not Available [place] [address] [address] [facility] [address], [place], [address], 11/12/2024 09:54:28 11/13/19 25 11/12/2024 urina lysis , dipst ick Glucose (reference range) 1000 Not Available [place] [address] [address] [facility] 100, [place], [address], 11/12/2024 09:54:28 11/13/19 25 11/12/2024 urina lysis , dipst ick Color (reference range: yellow-brown ) Yellow Not Available [place] [address] [address] [facility] 100, [place], [address], 11/12/2024 09:54:28 12/12/1912/11/2024 urina lysis , dipst ick Leukocytes (reference range) negati ve Not Available [place] [address] [address] [facility] 100, [place], [address], 12/11/2024 09:53:53 12/12/19 25 12/11/2024 urina lysis , dipst ick Nitrite (reference range:) negati ve Not Available [place] [address] [address] [facility] 100, [place], [address], 12/11/2024 09:53:53 12/12/19 25 12/11/2024 urina lysis , dipst ick Urobilinogen (reference range) 0.2 Not Available [place] [address] [address] [facility] 100, [place], [address], 12/11/2024 09:53:53 12/12/19 25 12/11/2024 urina lysis , dipst ick Protein (reference range) negati ve Not Available [place] [address] [address] [facility] 100, [place], [address], 12/11/2024 09:53:53 12/12/19 25 12/11/2024 urina lysis , dipst ick pH (reference range 5-8.5) 7.0 Not Available [place] [address], [place], [address], 12/11/2024 09:53:53 12/12/19 25 12/11/2024 urina lysis , dipst ick Blood (reference range:) negati ve Not Available [place] [address] [address] [facility] [address], [place], [address], 12/11/2024 09:53:53 12/12/19 25 12/11/2024 urina lysis , dipst ick Specific [place] (reference range) 1.005 Not Available [place] [address] [address] [facility] 100, [place], [address], 12/11/2024 09:53:53 12/12/19 25 12/11/2024 urina lysis , dipst ick Ketone (reference range) negati ve Not Available [place] [address] [address] [facility] 100, [place], [address], 12/11/2024 09:53:53 12/12/19 25 12/11/2024 urina lysis , dipst ick Bilirubin (reference range) negati ve Not Available [place] [address] [address] [facility] 100, [place], [address], 12/11/2024 09:53:53 12/12/19 25 12/11/2024 urina lysis , dipst ick Glucose (reference range) 1000 Not Available [place] [address] [address] [facility] 100, [place], [address], 12/11/2024 09:53:53 12/12/19 25 12/11/2024 urina lysis , dipst ick Color (reference range: yellow-brown ) Yellow Not Available [place] [address] [address] [facility] 100, [place], [address], 12/11/2024 09:53:53 12/12/19 25 12/11/2024 bladd er scan (PROC ) Calculated Residual Urine: 6ml Not Available [facility] [address], [place], [address], 12/11/2024 09:53:38 Result Notes None recorded. Problems Name Problem SNOMED Code Status Onset Date Resolution Date Notes Provider Name and Address Organization Details Recorded Time Dysuria 64287714 Active 2024 RAFIA REYNA MD [address], [place], [address] , [place] [facility] & [place] 14:50:10 Recurrent urinary tract infection 916671094 Active 2024 RAFIA REYNA MD [address], [place], [address] , [place] [facility] & [place] 14:50:14 Flank pain 929957065 Active 2024 RAFIA REYNA MD [address], [place], [address] , [place] [facility] & [place] 14:50:19 Microscopic hematuria 136114747 Active 2024 RAFIA REYNA MD [address], [place], [address] , [place] [facility] & [place] 14:50:25 Acute urinary tract infection 866827387 Active [address], [place], [address] , [place] [facility] & [place] 09:16:51 Problem Notes None recorded. Procedures Surgical History Date Name Laterality Status Provider Name and Address Organization Details Recorded Time 11/13/19 25 Cystoscopy-Femal e completed RAFIA REYNA MD [address], [place], [address], [place] [facility] & [place] 11/12/2024 09:57:15 Cataract Surgery completed Noemi Wetzel Y - [facility] & [place] 10/29/2024 16:22:47 breast procedure completed Noemi Wetzel Y - [facility] & [place] 10/29/2024 16:22:57 hysterectomy completed Noemi WILKES - [facility] & [place] 10/29/2024 16:25:09 Imaging Results None [...] No t Available Vitals Date Recorded Body height Body mass index (BMI) Body weight Oxygen saturation Oxygen saturation in Arterial blood by Pulse oximetry Heart rate Systolic And Diastolic Provider Name and Address Organization Details Last Updated DateTime 5 154.94 cm 21 kg/m2 82880.4 7 g 97 % 97 % 104 /min 122/76 mm[Hg] Mattie Rubio [facility] & [place] 5 09:53:01 Social History None recorded. Functional Status Question Answer Note LastModified by Organizat ion Details LastModified Time Do you use any illicit or recreational drugs? No [email or web address] Information not available 10/29/2024 Do you or have you ever used any other forms of tobacco or nicotine? No [email or web address] Information not available 10/29/2024 What is your level of alcohol consumption? None [email or web address] Information not available 10/29/2024 Mental Status None recorded. Family History Relationship Description Onset Age of this Age Resolved Age Notes LastModified by Organization Details LastModified Time Father Diabetes mellitus [email or web address] Not available 2024 16:19:42 Brother Diabetes mellitus [email or web address] Not available 2024 16:19:54 Sister Diabetes mellitus [email or web address] Not available 2024 16:20:01 Notes:Brother and Sister can cer Medical History Condition Response Diabetes Y Gynecological HistoryNo gynecological history recorded. Obstetrics History GPAL:G 0 P 0 0 0 0 Past Encounters Encounter ID Performer Location Encounter Start Date Encounter Closed Date Diagnosis/Indication Diagnosis SNOMED-CT Code Diagnosis ICD10 Code Diagnosis IMO Codes Diagnosis Note [id number] RAFIA REYNA MD [facility]1 00 [address] [facility] [address] [place] [address] 11/12/2024 09:26:45 11/12/2024 10:01:06 Recurrent urinary tract infection 600602334 N39.0 844298 [id number] RAFIA REYNA MD [facility]1 00 [address] [facility] 100 [place] [address] 12/11/2024 09:29:18 12/11/2024 10:07:39 Recurrent urinary tract infection 053550834 N39.0 123826 Dysuria 96328863 R30.0 66778 Health Concerns Section Related Observation LastModified by Organization Detai ls LastModified Time None Recorded Concern Status LastModified by Organization Details LastModified Time None Recorded Payers Encounter Date Sequence Insurance Name Policy Number Policy Massey Covered Member ID Massey Member ID Guarantor Name 12/11/2024 1 [employer] (MEDICARE REPLACEMENT/A DVANTAGE - HMO) Denise Dent [id number] Denise Dent Notes Date Note Type Note Provider Name and Address Organization Details Recorded Time 12/11/2024 text/html 12/11/24 Patient returns to my [...] daily as prescribed during her previous visit. 10/29/[id number]-[id number]- female referred to my office for urinary [...] of blood and inflammatory cells. 10/23 08/16 renal ([facility]): No hydronephrosis. Anechoic cystic lesion to the left kidney measuring 1.4 x 1 x 1.6 cm. No further dedicated follow-up is required for this finding.10/29/24 BUN 11, Cr 0.9, GFR Cytology MDX: Escherichia Coli, Staphylococcus [email or web address]/16/25 UA: Blood trace, RBC occas, WBC TNTC, Bacteria 3+; UC: Gram negative rods >100,000 CFL/ml05/04/24 UC: Staphylococcus aureus Moderate RAFIA REYNA MD [address] [facility], [place], [address], [facility] 12/15/2024 07:31:35 OBGyn Episode No OBEpisode recorded.
[2024-12-24 14:35] LABS: Hematocrit 42.8 % (37.0-47.0); Hemoglobin 14.5 g/dL (12.2-16.2); Immature Granulocytes % 0.5 %; Mean Corpuscular HGB Conc 33.9 g/dL (31.8-35.4); Mean Corpuscular Hemoglobin 31.4 pg (27.0-31.2); Mean Corpuscular Volume 92.6 fl (81-99); Nucleated Red Blood Cells % 0 %; Platelet Count 345 K/mm3 (142-424); Red Blood Count 4.62 M/mm3 (4.20-5.40); Red Cell Distribution Width-SD 44.0 fL; White Blood Count 10.0 K/mm3 (4.8-10.8)
[2024-12-24 15:38] LABS: Anion Gap 13.1 mEq/L (5-15); Blood Urea Nitrogen 12 mg/dl (7-17); Calcium 9.4 mg/dl (8.4-10.2); Carbon Dioxide 28 mmol/L (22.0-30.0); Chloride 94 mmol/L (98-107); Creatinine,Serum 0.60 mg/dl (0.52-1.04); Estimated Glomerular Filt Rate 95 ml/min (>60); GFR (African American) 114 ML/MIN (>60); Glucose 282 mg/dl (74-100); Potassium 4.1 mmoL/L (3.5-5.1); Sodium 131 mmol/L (136-145)
[2024-12-24 15:40] LABS: Creatine Kinase < 20 U/L (30-135)
== END 2024-12-24 23:59 | disposition home or self-care (01) ==
PROVIDERS: Internal Medicine; PCP Internal Medicine; Visit Provider Internal Medicine
DX: M79.604 Pain in right leg (principal); I73.9 Peripheral vascular disease, unspecified; I70.1 Atherosclerosis of renal artery; E87.1 Hypo-osmolality and hyponatremia; R93.89 Abnormal findings on diagnostic imaging of other specified body structures; E78.5 Hyperlipidemia, unspecified; I11.9 Hypertensive heart disease without heart failure
CPT/HCPCS: 36415; 80048; 82550; 85025; 85651; 93971

== ENCOUNTER 2024-12-25 13:40 | Outpatient (CLI) | payer MEDICARE, SELFPAY ==
--- OUTSIDE RECORDS SUMMARY | 2024-12-25 13:43 | XMS_ITS | Clinical Summary ---
Author Organization [facility] ystem Address [address] [place] [address] Care Team Providers Care Coke Drawer Hand Name Role Phone Unavailable Primary Care Provider [...]
--- NOTE | 2024-12-25 14:00 | CT_ITS ---
FINAL REPORT TECHNIQUE: Post contrast axial imaging of the aorta and bilateral lower extremity was obtained and reviewed. This study was performed with techniques to keep radiation doses as low as reasonably achievable (ALARA). Individualized dose reduction techniques using automated exposure control or adjustment of mA and/or kV according to the patient''s size were employed. CLINICAL HISTORY: PAD FINDINGS: The lung bases are clear. There are healed fracture deformities of the ribs bilaterally. The liver parenchyma is homogeneous. Multiple gallstones are seen in the dependent portion of the gallbladder. The spleen and pancreas are unremarkable. Bilateral adrenal masses are identified. Right adrenal mass measures up to 2.3 x 1.9 cm. Left adrenal mass measures 1.4 x 1.0 cm. The kidneys are unremarkable. The urinary bladder is unremarkable. CTA: The celiac axis and SMA appear patent. The BONG is patent. There is dual right and single left renal arteries. Renal arteries are difficult to evaluate but no definite stenosis is seen. The aorta is normal in caliber. There is dense vascular calcification of the abdominal aorta. Iliac vessels appear widely patent. Right lower extremity: The common femoral artery is patent. There is occlusion of the proximal right SFA. SFA is occluded throughout its length. This is distal reconstitution of the proximal popliteal artery. There is occlusion of the distal popliteal artery. The occluded segment of the distal popliteal artery measures about 5 cm in length. There is dominant runoff to the right foot via the anterior tibial and peroneal arteries. Left lower extremity: The common femoral artery is patent. There is scattered vascular calcification throughout the SFA. Dense vascular calcification is noted within the adductor canal and popliteal artery. Stenoses measure up to 50%. The trifurcation is patent. There is three-vessel runoff to the left foot. 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 There is occlusion of the distal popliteal artery. 50% stenosis in the adductor canal. Gallstones. Bilateral adrenal masses, indeterminate. Reviewed, Interpreted and Dictated by Ken Varela MD Transcribed by Akilah Whitaker Authenticated and [facility]
[2024-12-25] MEDS: SODIUM CHLORIDE 0.9% 10ML SYR (RAD ONLY) 10 ML IV ×2 (14:08)
[2024-12-25] MEDS: 0.9 % SODIUM CHLORIDE 50 ML VIAL IV ×2 (14:08)
[2024-12-25] MEDS: IOPAMIDOL-370 (76%);100ML BOTTLE 20 ML IV (14:08)
[2024-12-25] MEDS: IOPAMIDOL-370 (76%);100ML BOTTLE 100 ML IV (14:08)
== END 2024-12-25 23:59 | disposition home or self-care (01) ==
LOC: RAD 13:41
PROVIDERS: PCP Internal Medicine; Visit Provider Internal Medicine
DX: I70.201 Unspecified atherosclerosis of native arteries of extremities, right leg (principal); I70.92 Chronic total occlusion of artery of the extremities; E27.8 Other specified disorders of adrenal gland; K80.20 Calculus of gallbladder without cholecystitis without obstruction; I70.1 Atherosclerosis of renal artery; E87.1 Hypo-osmolality and hyponatremia; E78.5 Hyperlipidemia, unspecified; I11.9 Hypertensive heart disease without heart failure
CPT/HCPCS: 75635; Q9967

== ENCOUNTER 2025-01-13 15:09 | Observation (INO) | payer MEDICARE, SELFPAY ==
[2025-01-13] VITALS (17 sets, daily range): BP systolic 135–177; BP diastolic 56–96; PULSE 50–91; RESP 16–20; TEMP 36.5–36.8; O2SAT 94–100; BMI 19.5
--- NOTE | 2025-01-13 07:13 | IR_ITS ---
APPROVED REPORT Patient Location: Outpatient PROCEDURES Catheter placement in the abdominal aorta Abdominal aortography Repositioning the catheter in the abdominal aorta Bilateral iliofemoral runoff INDICATION [place] claudication class III-IV, Peripheral artery disease, Abnormal CTA Informed consent was obtained prior to the procedure. COMPLICATIONS NONE Estimated Blood Loss: LESS THAN 10 ML TECHNIQUE 1% lidocaine used to anesthetize the left femoral groin. The left femoral artery was accessed via the Seldinger technique. A 5 Polish sheath is placed in the left femoral artery followed by a pigtail catheter to the abdominal aorta. Abdominal aortography was performed followed by bilateral iliofemoral runoff following repositioning of the catheter. At the end the procedure the apparatus was removed patient was transferred to the postop putting in stable condition for sheath removal ANGIOGRAPHIC RESULTS Distal abdominal aorta is moderately calcified with distal 30 to 40% concentric stenosis Right common iliac artery has 20% stenoses the right internal iliac artery is widely patent right external iliac artery is normal the right common femoral artery has 20% calcified stenosis. The right superficial femoral artery is approximately occluded 2 cm distal to its origin. The SFA is occluded throughout its entire course. The proximal popliteal artery is occluded however the pregeniculate popliteal artery scantly collateralizes following collaterals from the widely patent profunda femoris. The popliteal artery is then distally subtotally occluded and gives rise to scant flow below the knee with what appears to be two-vessel runoff from the peroneal artery and the anterior tibialis artery. Distally the posterior tibialis artery does recanalize but stops short of the right foot Left common iliac artery has 20 and 30% stenoses. The left internal iliac artery is patent the left external iliac artery is widely patent left common femoral artery is widely patent left profunda femoris artery is patent left superficial femoral artery has mid vessel diffuse 50% stenoses which extend into Naseem's canal. The left popliteal artery has a mid vessel concentric 70 to 80% stenosis. Gives rise to the posterior tibialis artery which is then subtotally occluded proximally. The anterior tibialis artery is proximally patent with mid vessel 80% stenoses and appears to give inline flow into the left foot. The left peroneal artery is patent and then becomes subtotally occluded at mid calf IMPRESSION Severe PAD as described above primarily involving the right superficial femoral artery throughout its entire course PLAN 1. This point I am apprehensive to revascularize the right superficial femoral artery and popliteal artery. The distal runoff is scant and I am concerned 300 mm of stents would likely cause stent thromboses with short-term patency dubious at best 2. At this point I believe patient should be managed medically. She indicates only experiencing pain with activities but is still able to perform activities of daily living. She is not describing any resting pain to me. If patient experiences limb threatening ischemia with poorly healing lower extremity ulcers and facing amputation I would consider opening the right superficial femoral artery. Unless there is limb threatening ischemia I would not recommend revascularizing at this point. I believe there is a high likelihood for complications in this elderly lady with extensive and long calcified occlusions Electronically signed by : Ronnie Angel MD 01/13/2025 16:52:27
[2025-01-13 08:25] LABS: Hematocrit 40.1 % (37.0-47.0); Hemoglobin 14.0 g/dL (12.2-16.2); Immature Granulocytes % 0.5 %; Mean Corpuscular HGB Conc 34.9 g/dL (31.8-35.4); Mean Corpuscular Hemoglobin 31.6 pg (27.0-31.2); Mean Corpuscular Volume 90.5 fl (81-99); Nucleated Red Blood Cells % 0 %; Platelet Count 329 K/mm3 (142-424); Red Blood Count 4.43 M/mm3 (4.20-5.40); Red Cell Distribution Width-SD 42.2 fL; White Blood Count 8.1 K/mm3 (4.8-10.8)
[2025-01-13 08:26] LABS: Chloride 94 mmol/L (98-107)
[2025-01-13 08:27] LABS: Potassium 3.3 mmoL/L (3.5-5.1); Sodium 133 mmol/L (136-145)
[2025-01-13 08:30] LABS: Anion Gap 10.3 mEq/L (5-15); Blood Urea Nitrogen 8 mg/dl (7-17); Calcium 8.8 mg/dl (8.4-10.2); Carbon Dioxide 32 mmol/L (22.0-30.0); Creatinine Clearance Estimated 31 mL/min (50-200); Creatinine,Serum 0.60 mg/dl (0.52-1.04); Estimated Glomerular Filt Rate 95 ml/min (>60); GFR (African American) 114 ML/MIN (>60); Glucose 137 mg/dl (74-100)
[2025-01-13] MEDS: HEPARIN 1,000 UNITS/500ML NS (CATH LAB) 3000 UNIT IV (10:16)
[2025-01-13] MEDS: LIDOCAINE 1% 10ML MDV 10 ML IJ (10:17)
[2025-01-13] MEDS: 0.9 % SODIUM CHLORIDE 500 ML 25 ML IV (10:17)
[2025-01-13] MEDS: FENTANYL 100MCG/2ML VIAL 50 MCG IV (10:49)
[2025-01-13] MEDS: MIDAZOLAM HCL 1MG/ML 5ML VIAL 1 MG IV (10:49)
--- NOTE | 2025-01-13 12:43 | CA_ITS ---
FINAL REPORT CLINICAL HISTORY: interventional vascular procedure today for occluded right SFA with left groin access. Palpable knot at left groin post procedure. FINDINGS: ULTRASOUND VASCULAR ARTERIAL LOWER EXTREMITY LIMITED, LEFT FINDINGS: Limited Doppler evaluation of the groin demonstrates no evidence of pseudoaneurysm. There is no evidence of AV fistula. Visualized portions of the common femoral artery and vein are patent. There is no hematoma appreciated. IMPRESSION: No evidence of pseudoaneurysm. Reviewed, Interpreted and Dictated by Nadia Del Castillo MD Transcribed by Linda Marlow Authenticated and . [facility]
--- NOTE | 2025-01-13 15:23 | PC.NURSE ---
arrived from director of labor relations by salomon
--- NOTE | 2025-01-13 15:30 | P.HP_ITS ---
<Statement entered by Kunal Velazquez MD - 01/15/25 12:55> Agree with plan of care as outlined by the JOINERY FACTORY WORKER. History of Present Illness *Admission Date: 01/13/25 *Reason for visit:: s/p runoff *History of present illness: Ms. Dent is an 89-year-old female who is being admitted status post bolus fortino aortogram bilateral lower extremity with left groin access. She has a primary history of PAD, Alzheimer's dementia, type 2 diabetes, PVD, diastolic dysfunction, hypertension, DDD, hyperlipidemia, CAD with SARA. Patient did not receive any intervention, no stents or balloons during procedure. Postprocedure patient continued to have left groin hematoma, ultrasound performed showed no pseudoaneurysm. [facility] Disclaimer: The information contained in this section may have been updated after the patient was seen, as this information can be updated by other users. Medical History Diastolic dysfunction PVD (peripheral vascular disease) Fatigue Family History (Updated 01/13/25 @ 15:56 by Loli Mg RN) Other Family history of cancer Family history of diabetes mellitus type II Family history of myocardial infarction Social History Smoking Status: Never smoker alcohol intake: never substance use type: denies use current occupational status: unemployed Travel in the last 8 weeks?: Inside the [place] household members: spouse housing: house caffeine: Yes Have you lived/traveled outside [place] in past 30 days?: No Contact w/someone who lives/traveled outside [place] past 30 days?: No Exposure to someone with infectious disease in past 14 days?: No Do you have a fever (greater than 100.4 F or 38 C)?: No Have you tested positive for COVID-19?: No Exposed to someone with COVID-19 in past 14 days?: No Do you have a sore throat?: No Do you have a cough?: No Do you have any weakness?: No Do you have any diarrhea?: No Are you experiencing any unusual bleeding?: No Do you have any muscle aches/pain?: No Do you have any abdominal pain?: No Are you experiencing loss of taste or smell?: No Other Medical History Have you received the Flu Vaccine for this season: No Have you received the Pneumonia Vaccine: Yes Review of Systems Review of Systems Review of systems:: pertinent systems reviewed and negative unless documented below Meds Home Medications and Allergies Home Medications ?Medication ?Instructions ?Recorded ?Confirmed ?Type cholecalciferol (vitamin D3) 25 25 mcg PO DAILY 01/13/25 History mcg (1,000 unit) capsule ferrous sulfate 325 mg (65 mg 325 mg PO BID 01/09/21 1 History iron) tablet (Feosol) metformin 1,000 mg tablet 1,000 mg PO BID Diabetes 01/14/25 History aspirin 81 mg chewable tablet 81 mg PO DAILY 30 days # 30 tabs 09/12/23 01/13/25 Rx clopidogrel 75 mg tablet (Plavix) 75 mg PO DAILY 30 da ys #30 tabs 09/12/23 01/14/25 Rx gabapentin 600 mg tablet 600 mg PO HS 09/12/23 History blood sugar diagnostic (True #10 ea 12/19/23 01/13/25 History Metrix Glucose Test Strip) blood-glucose meter (True Metrix #1 ea 12/19/23 History Air Glucose Meter) loperamide 2 mg capsule 2 mg PO NEEDED PRN BOWELS 12/19/23 01/13/25 History insulin syringe-needle U-100 1 mL #100 ea 05/11/24 Rx 31 gauge x 15/64 (BD Veo Insulin Syringe Ultra-Fine) pen needle, diabetic 32 gauge x #100 ea 05/15/2401/13 Rx 5/32 (BD Soraya 2nd Gen Pen Needle) calcium carbonate (Calcium 600) 600 mg PO HS 09/23/24 01/13/25 History cinnamon bark 500 mg capsule 500 mg PO HS 09/23/24 History (Cinnamon) coenzyme Q10 100 mg capsule 200 mg PO DAILY 09/23/24 1 History (CoQ-10) memantine 5 mg tablet (Namenda) 5 mg PO DAILY For radha ry #30 tabs 12/14/24 01/13/25 Rx hydrocodone 5 mg-acetaminophen 325 1 tab PO Q8H PRN pa in #15 tabs 12/23/24 01/13/25 Rx mg tablet insulin glargine U-300 conc 300 27 unit SQ DAILY 01/1301/13/25 History unit/mL (1.5 mL) subcutaneous pen (Jones SoloStar U-300 Insulin) atorvastatin 20 mg tablet 20 mg PO HS 01/14/25 5 History lisinopril 20 mg tablet 20 mg PO DAILY 01/14/2512/24 History New Prescriptions to Start Prescriptions: Allergies Allergy/AdvReac Type Severity Reaction Status Date / Time No Known Allergies Allergy Verified 12/31/24 14:07 Exam Data for Last 24 hours Vital signs and Labs for Last 24 Hours: Temp Pulse Resp BP Pulse Ox O2 Del Method 98.2 F 53 L 20 148/74 H 94 L Room Air 01/13/25 07:58 01/13/25 14:25 01/13/25 14:25 01/13/25 14:25 01/13/25 14:25 01/13/25 14:25 Laboratory Results - last 24 hr 01/13/25 08:00: WBC 8.1, RBC 4.43, Hgb 14.0, Hct 40.1, MCV 90.5, MCH 31.6 H, MCHC 34.9, RDW 12.8, Plt Count 329, MPV 8.5, Neut % (Auto) 64.2, Lymph % (Auto) 21.9, [place] % (Auto) 8.2, Eos % (Auto) 4.5, Baso % (Auto) 0.7, Neut # (Auto) 5.2, Lymph # (Auto) 1.8, [place] # (Auto) 0.7, Eos # (Auto) 0.4, Baso # (Auto) 0.1, Sodium 133 L, Potassium 3.3 L, Chloride 94 L, Carbon Dioxide 32 H, Anion Gap 10.3, BUN 8, Creatinine 0.60, Estimated Creat Clear 31, Estimated GFR 95, Est GFR ( Amer) 114, Glucose 137 H, Calcium 8.8 I & O for Last 24 hours: Intake & Output 01/10/25 01/11/25 01/12/25 01/13/25 23:59 23:59 23:59 23:59 Intake Total 500 / 500 Balance 500 / 500 Weight 49.895 kg Constitutional Constitutional: no acute distress, average body habitus, chronically ill appearing and cooperative *Routine HEENT Exam Head: Present normocephalic Eye: Present EOMI and PERRL ENT: Present mucous membranes moist *Routine Neck Exam Neck: Present supple; Absent lymphadenopathy *Routine Respiratory Exam Respiratory: Present CTA bilaterally; Absent rhonchi, wheezes or crackles *Routine Cardiovascular Exam Cardiovascular: Present RRR; Absent murmur *Routine Abdominal Exam Abdominal: Present soft and normoactive bowel sounds; Absent tenderness *Routine Rectal Exam Rectal:: deferred *Routine Genitalia Exam Genitalia:: deferred *Routine Extremities Exam Extremities: Absent cyanosis, clubbing or edema Routine Back/Spine/Pelvis Exam Back/Spine: Absent CVA tenderness *Routine Skin Exam Skin: Present intact and warm; Absent rash *Routine Neurological Exam Neurological: Present alert, oriented X3 and moving all extremities; Absent altered mental status Assessment and Plan *Assessment and plan (1) PAD (peripheral artery disease): Status: Acute Category: Medical Code(s): I73.9 - Peripheral vascular disease, unspecified (2) S/P aortogram with runoff: Status: Acute Category: Surgical Code(s): Z98.890 - Other specified postprocedural states (3) Type 2 diabetes mellitus with vascular disease: Status: Chronic Category: Medical Code(s): E11.59 - Type 2 diabetes mellitus with other circulatory complications Plan Ms. Dent is an 89-year-old female who is being admitted status post bolus fortino aortogram bilateral lower extremity with left groin access. She has a primary history of PAD, Alzheimer's dementia, type 2 diabetes, PVD, diastolic dysfunction, hypertension, DDD, hyperlipidemia, CAD with SARA. Patient did not receive any intervention, no stents or balloons during procedure. Postprocedure patient continued to have left groin hematoma, ultrasound performed showed no pseudoaneurysm. Dr. Angel contacted hospital medicine for admission for monitoring and bleeding risk, I agreed to admit the patient. Plan of care as follows: #PAD #S/P aortogram ?Patient doing well, minimal hematoma left groin noted. Continue to monitor overnight. Patient did not receive intervention during procedure. Cardiology consulted for further recommendations prior to discharge. ?Continue Plavix 75 mg, aspirin 81 mg. ?CBC, CMP, magnesium ordered for the a.m. #Insulin-dependent diabetes ?ACHS fingersticks, SSI ordered. A1c 11/2024 was 9.2%. Full code Bed rest until 5 PM, ambulate as tolerated after VTE?Lovenox Diabetic diet
[2025-01-13] MEDS: IOHEXOL-240 100ML BOTTLE 107 ML IV (16:38)
[2025-01-13 16:40] LABS: POC Glucose,Bedside 99 gm/dL (70-110)
[2025-01-13] MEDS: LISINOPRIL 20MG TABLET 20 MG PO (17:05)
--- NOTE | 2025-01-13 17:29 | PC.NURSE ---
AOX4, ROOM AIR. TOLERATED DIET WELL. VSS SINCE ARRIVAL TO FLOOR.
[2025-01-13] MEDS: FERROUS SULFATE 325MG TABLET 325 MG PO (20:12)
[2025-01-13] MEDS: ATORVASTATIN 20MG TABLET 20 MG PO (20:12)
[2025-01-13] MEDS: GABAPENTIN 600MG TABLET 600 MG PO (20:12)
[2025-01-13 21:37] LABS: POC Glucose,Bedside 185 gm/dL (70-110)
[2025-01-14] VITALS: BP 97/44; PULSE 58; PULSE 60; RESP 16; TEMP 36.6; O2SAT 98
[2025-01-14 04:00] VITALS: BP 99/53; PULSE 50; PULSE 60; RESP 17; TEMP 36.4; O2SAT 99; BMI 19.8
[2025-01-14 06:15] LABS: Hematocrit 36.4 % (37.0-47.0); Hemoglobin 12.7 g/dL (12.2-16.2); Immature Granulocytes % 0.4 %; Mean Corpuscular HGB Conc 34.9 g/dL (31.8-35.4); Mean Corpuscular Hemoglobin 31.8 pg (27.0-31.2); Mean Corpuscular Volume 91.0 fl (81-99); Nucleated Red Blood Cells % 0 %; Platelet Count 289 K/mm3 (142-424); Red Blood Count 4.00 M/mm3 (4.20-5.40); Red Cell Distribution Width-SD 42.5 fL; White Blood Count 7.8 K/mm3 (4.8-10.8)
[2025-01-14 06:36] LABS: Albumin Level 2.9 g/dl (3.5-5.0); Chloride 97 mmol/L (98-107); Sodium 130 mmol/L (136-145)
[2025-01-14 06:38] LABS: Alanine Aminotransferase 13 U/L (12-78); Aspartate Amino Transferase 22 U/L (14-36); Blood Urea Nitrogen 7 mg/dl (7-17); Creatinine Clearance Estimated 32 mL/min (50-200); Creatinine,Serum 0.60 mg/dl (0.52-1.04); Estimated Glomerular Filt Rate 95 ml/min (>60); GFR (African American) 114 ML/MIN (>60)
[2025-01-14 06:39] LABS: Albumin/Globulin Ratio 1.1 (1.1-1.8); Alkaline Phosphatase 87 U/L (38-126); Bilirubin,Total 1.0 mg/dl (0.2-1.3); Calcium 8.0 mg/dl (8.4-10.2); Carbon Dioxide 29 mmol/L (22.0-30.0); Cholesterol 112 mg/dl (140-200); Globulin 2.6 g/dL (1.3-3.2); Glucose 96 mg/dl (74-100); HDL Cholesterol 41 mg/dl (40-60); Magnesium 1.6 mg/dl (1.6-2.3); Total Protein,Serum 5.5 g/dl (6.3-8.2); Triglycerides 122 mg/dl (30-150)
[2025-01-14 06:49] LABS: POC Glucose,Bedside 108 gm/dL (70-110)
[2025-01-14 07:14] LABS: Anion Gap 7.1 mEq/L (5-15); Potassium 3.1 mmoL/L (3.5-5.1)
[2025-01-14 07:57] VITALS: BP 111/89; PULSE 68; RESP 16; TEMP 36.6; O2SAT 97
[2025-01-14 08:00] VITALS: PULSE 70
--- NOTE | 2025-01-14 08:47 | HMH.PHAINT1 ---
Pharmacy Intervention Comments: verified home medication list using list from outpatient pharmacy and pcp office and cardiology office
[2025-01-14] MEDS: ASPIRIN 81MG CHEWABLE TABLET 81 MG PO (09:10)
[2025-01-14] MEDS: LISINOPRIL 20MG TABLET 20 MG PO (09:10)
[2025-01-14] MEDS: FERROUS SULFATE 325MG TABLET 325 MG PO (09:10)
[2025-01-14] MEDS: POTASSIUM CHLORIDE 20MEQ TAB 40 MEQ PO (09:10)
[2025-01-14] MEDS: MAGNESIUM SULFATE IN WATER 2 GM/50 ML PIGGYBACK IV ×2 (09:10→10:08)
[2025-01-14] MEDS: CLOPIDOGREL 75MG TAB 75 MG PO (09:11)
[2025-01-14] MEDS: MEMANTINE 10MG TABLET 5 MG PO (09:11)
--- NOTE | 2025-01-14 09:33 | P.DS_ITS ---
<Statement entered by Kunal Velazquez MD - 01/15/25 12:55> Agree with plan of care as outlined by the [facility]. Patient needs close follow-up with PCP for further manage diabetes likely contributing to severe PAD. General Admission date:: 01/13/25 Discharge date: 01/14/25 HPI HPI HPI: Ms. Dent is an 89-year-old female who is being admitted status post bolus fortino aortogram bilateral lower extremity with left groin access. She has a primary history of PAD, Alzheimer's dementia, type 2 diabetes, PVD, diastolic dysfunction, hypertension, DDD, hyperlipidemia, CAD with SARA. Patient did not receive any intervention, no stents or balloons during procedure. Postprocedure patient continued to have left groin hematoma, ultrasound performed showed no pseudoaneurysm. Hospital Course Hospital Course Hospital Course: Ms. Dent is an 89-year-old female who is being admitted status post bolus fortino aortogram bilateral lower extremity with left groin access. She has a primary history of PAD, Alzheimer's dementia, type 2 diabetes, PVD, diastolic dysfunction, hypertension, DDD, hyperlipidemia, CAD with SARA. Patient did not receive any intervention, no stents or balloons during procedure. Postprocedure patient continued to have left groin hematoma, ultrasound performed showed no pseudoaneurysm. Dr. Angel contacted [facility] for admission for monitoring and bleeding risk, I agreed to admit the patient. Plan of care was as follows: #PAD #S/P aortogram ? Patient did well overnight, states she slept without issues. No complaints of pain or discomfort. Ambulating around the room independently. Very small bruising noted and left groin. No tenderness noted. Patient doing well, minimal hematoma left groin noted. ?Patient had bilateral iliofemoral runoff yesterday afternoon which showed severe PAD. No intervention at this time, recommendations of medical management. ?Continue Plavix 75 mg, aspirin 81 mg, atorvastatin 20 mg at bedtime, lisinopril 20 mg daily. #Insulin-dependent diabetes ? Patient's A1c 11/2024 was 9.2%, patient is insulin-dependent. Patient should continue insulin regimen. Continue metformin 1000 mg twice daily. #Hypomagnesemia #Hypokalemia ? Patient potassium low at 3.1, magnesium low at 1.6. Replace per protocol day of discharge. Will discharge patient home with potassium and magnesium supplement. Patient should have recheck of electrolytes with PCP next week. #Chronic pain #Peripheral neuropathy ? Patient should continue [place] 5/325 every 8 hours as needed for pain and gabapentin 600 mg at bedtime. Exam Data for Last 24 hours Vital signs and Labs for Last 24 Hours: Temp Pulse Resp BP Pulse Ox O2 Del Method 98 F 68 16 111/89 97 Room Air 01/14/25 07:57 01/14/25 07:57 01/14/25 07:57 01/14/25 07:57 01/14/25 07:57 01/14/25 07:57 Laboratory Results - last 24 hr 01/13/25 16:33: POC Glucose 99 01/13/25 21:31: POC Glucose 185 H 01/14/25 05:47: WBC 7.8, RBC 4.00 L, Hgb 12.7, Hct 36.4 L, MCV 91.0, MCH 31.8 H, MCHC 34.9, RDW 12.9, Plt Count 289, MPV 8.5, Neut % (Auto) 51.9, Lymph % (Auto) 32.9, [place] % (Auto) 9.3, Eos % (Auto) 4.9, Baso % (Auto) 0.6, Neut # (Auto) 4.0, Lymph # (Auto) 2.6, [place] # (Auto) 0.7, Eos # (Auto) 0.4, Baso # (Auto) 0.1, Sodium 130 L, Potassium 3.1 L, Chloride 97 L, Carbon Dioxide 29, Anion Gap 7.1, BUN 7, Creatinine 0.60, Estimated Creat Clear 32, Estimated GFR 95, Est GFR ( Amer) 114, Glucose 96 D, Calcium 8.0 L, Magnesium 1.6, Total Bilirubin 1.0, AST 22, ALT 13, Alkaline Phosphatase 87, Total Protein 5.5 L, Albumin 2.9 L , Globulin 2.6, Albumin/Globulin Ratio 1.1, Triglycerides 122, Cholesterol 112 L , LDL Cholesterol Direct 45.44 L, VLDL Cholesterol 24, HDL Cholesterol 41, Cholesterol/HDL Ratio 2.7 01/14/25 06:42: POC Glucose 108 I & O for Last 24 hours: Intake & Output 01/11/25 01/12/25 01/13/25 01/14/25 23:59 23:59 23:59 23:59 Intake Total 740 / 980 240 / 240 Output Total 0 / 0 Balance 740 / 980 240 / 240 Weight 49.941 kg 50.802 kg Constitutional Constitutional: no acute distress, thin, chronically ill appearing and cooperative *Routine HEENT Exam Head: Present normocephalic Eye: Present EOMI and PERRL ENT: Present mucous membranes moist *Routine Neck Exam Neck: Present supple; Absent lymphadenopathy *Routine Respiratory Exam Respiratory: Present CTA bilaterally; Absent rhonchi, wheezes or crackles *Routine Cardiovascular Exam Cardiovascular: Present RRR; Absent murmur *Routine Abdominal Exam Abdominal: Present soft and normoactive bowel sounds; Absent tenderness *Routine Rectal Exam Patient deferred: visual exam *Routine Exam Patient deferred: external exam *Routine Extremities Exam Extremities: Absent cyanosis, clubbing or edema Routine Back/Spine/Pelvis Exam Back/Spine: Absent CVA tenderness *Routine Skin Exam Skin: Present intact, dry and warm; Absent rash Comments: Bruising to left groin *Routine Neurological Exam Neurological: Present alert, oriented X3 and moving all extremities; Absent altered mental status Results Data Completed and Pending Labs on day of discharge: Labs from last 24 hours 01/14/25 01/14/25 01/13/25 06:42 05:47 21:31 WBC 7.8 RBC 4.00 L Hgb 12.7 Hct 36.4 L MCV 91.0 MCH 31.8 H MCHC 34.9 RDW 12.9 Plt Count 289 MPV 8.5 Neut % (Auto) 51.9 Lymph % (Auto) 32.9 [place] % (Auto) 9.3 Eos % (Auto) 4.9 Baso % (Auto) 0.6 Neut # (Auto) 4.0 Lymph # (Auto) 2.6 [place] # (Auto) 0.7 Eos # (Auto) 0.4 Baso # (Auto) 0.1 Sodium 130 L Potassium 3.1 L Chloride 97 L Carbon Dioxide 29 Anion Gap 7.1 BUN 7 Creatinine 0.60 Estimated Creat Clear 32 Estimated GFR 95 Est GFR ( Amer) 114 Glucose 96 D POC Glucose 108 185 H Calcium 8.0 L Magnesium 1.6 Total Bilirubin 1.0 AST 22 ALT 13 Alkaline Phosphatase 87 Total Protein 5.5 L Albumin 2.9 L Globulin 2.6 Albumin/Globulin Ratio 1.1 Triglycerides 122 Cholesterol 112 L LDL Cholesterol Direct 45.44 L VLDL Cholesterol 24 HDL Cholesterol 41 Cholesterol/HDL Ratio 2.7 01/13/25 16:33 WBC RBC Hgb Hct MCV MCH MCHC RDW Plt Count MPV Neut % (Auto) Lymph % (Auto) [place] % (Auto) Eos % (Auto) Baso % (Auto) Neut # (Auto) Lymph # (Auto) [place] # (Auto) Eos # (Auto) Baso # (Auto) Sodium Potassium Chloride Carbon Dioxide Anion Gap BUN Creatinine Estimated Creat Clear Estimated GFR Est GFR ( Amer) Glucose POC Glucose 99 Calcium Magnesium Total Bilirubin AST ALT Alkaline Phosphatase Total Protein Albumin Globulin Albumin/Globulin Ratio Triglycerides Cholesterol LDL Cholesterol Direct VLDL Cholesterol HDL Cholesterol Cholesterol/HDL Ratio DS: Diagnosis Discharge Diagnosis (1) PAD (peripheral artery disease): Status: Acute Code(s): I73.9 - Peripheral vascular disease, unspecified (2) S/P aortogram with runoff: Status: Acute Code(s): Z98.890 - Other specified postprocedural states (3) Type 2 diabetes mellitus with vascular disease: Status: Chronic Code(s): E11.59 - Type 2 diabetes mellitus with other circulatory complications (4) Hypokalemia: Status: Acute Code(s): E87.6 - Hypokalemia (5) Hypomagnesemia: Status: Acute Code(s): E83.42 - Hypomagnesemia Meds Home Medications and Allergies Home Medications ?Medication ?Instructions ?Recorded ?Confirmed ?Type cholecalciferol (vitamin D3) 25 25 mcg PO DAILY 01/13/25 History mcg (1,000 unit) capsule ferrous sulfate 325 mg (65 mg 325 mg PO BID 01/09/21 1 History iron) tablet (Feosol) metformin 1,000 mg tablet 1,000 mg PO BID Diabetes 01/14/25 History aspirin 81 mg chewable tablet 81 mg PO DAILY 30 days # 30 tabs 09/12/23 01/13/25 Rx clopidogrel 75 mg tablet (Plavix) 75 mg PO DAILY 30 da ys #30 tabs 09/12/23 01/14/25 Rx gabapentin 600 mg tablet 600 mg PO HS 09/12/23 History blood sugar diagnostic (True #10 ea 12/19/23 01/13/25 History Metrix Glucose Test Strip) blood-glucose meter (True Metrix #1 ea 12/19/23 History Air Glucose Meter) loperamide 2 mg capsule 2 mg PO NEEDED PRN BOWELS 12/19/23 01/13/25 History insulin syringe-needle U-100 1 mL #100 ea 05/11/24 Rx 31 gauge x 15/64 (BD Veo Insulin Syringe Ultra-Fine) pen needle, diabetic 32 gauge x #100 ea 05/15/2401/13 Rx 5/32 (BD Soraya 2nd Gen Pen Needle) calcium carbonate (Calcium 600) 600 mg PO HS 09/23/24 01/13/25 History cinnamon bark 500 mg capsule 500 mg PO HS 09/23/24 History (Cinnamon) coenzyme Q10 100 mg capsule 200 mg PO DAILY 09/23/24 1 History (CoQ-10) memantine 5 mg tablet (Namenda) 5 mg PO DAILY For radha ry #30 tabs 12/14/24 01/13/25 Rx hydrocodone 5 mg-acetaminophen 325 1 tab PO Q8H PRN pa in #15 tabs 12/23/24 01/13/25 Rx mg tablet insulin glargine U-300 conc 300 27 unit SQ DAILY 01/1301/13/25 History unit/mL (1.5 mL) subcutaneous pen (Toujeo SoloStar U-300 Insulin) atorvastatin 20 mg tablet 20 mg PO HS 01/14/25 5 History lisinopril 20 mg tablet 20 mg PO DAILY 01/14/2512/24 History magnesium 200 mg tablet 200 mg PO DAILY #30 tabs Rx potassium chloride 20 mEq 20 meq PO DAILY #30 tabs Rx tablet,extended release(part/cryst) (Klor-Con M) New Prescriptions to Start Prescriptions: magnesium Lexi Kohler potassium chloride [Klor-Con M20] Lexi Kohler Allergies Allergy/AdvReac Type Severity Reaction Status Date / Time No Known Allergies Allergy Verified 12/31/24 14:07 Discharge Plan Disposition Patient Disposition: Home, Self-Care Condition: Fair Follow up Plan Follow up with: Ricky Lacey MD [Primary Care Provider, Medical] - Enter time for follow up Ronnie Angel MD [Staff Physician, Cardiology] - 01/20/25 9:15 am Prescriptions/Medication Reconciliation: New potassium chloride [Klor-Con M20] 20 mEq tablet,ER particles/crystals 20 meq PO DAILY Qty: 30 0RF magnesium 200 mg tablet 200 mg PO DAILY Qty: 30 0RF Continued metformin 1,000 mg tablet 1,000 mg PO BID ferrous sulfate [Feosol] 325 mg (65 mg iron) tablet 325 mg PO BID cholecalciferol (vitamin D3) 25 mcg (1,000 unit) capsule 25 mcg PO DAILY loperamide 2 mg capsule 2 mg PO NEEDED PRN (Reason: BOWELS) Patient Comments: TAKE 1 CAPSULE BY MOUTH EVERY 4 HOURS NEEDED (DME) True Metrix Glucose Test Strip Strip See Rx Instructions .ROUTE .MEDSUPPLY Qty: 10 Rx Instructions: As directed (DME) blood-glucose meter [True Metrix Air Glucose Meter] Misc See Rx Instructions .ROUTE .MEDSUPPLY Qty: 1 Rx Instructions: As directed hydrocodone-acetaminophen 5-325 mg tablet 1 tab PO Q8H PRN (Reason: pain) Qty: 15 0RF memantine [Namenda] 5 mg tablet 5 mg PO DAILY Qty: 30 1RF (DME) insulin syringe-needle U-100 [BD Veo Insulin Syringe UF] 1 mL 31 gauge x 15/64 syringe See Rx Instructions .Route Qty: 100 5RF Rx Instructions: As directed (DME) pen needle, diabetic [BD Soraya 2nd Gen Pen Needle] 32 gauge x 5/32 needle See Rx Instructions .Route Qty: 100 5RF Rx Instructions: USE ONCE DAILY calcium carbonate [Calcium 600] 600 mg calcium (1,500 mg) Tablet 600 mg PO HS coenzyme Q10 [CoQ-10] 100 mg Capsule 200 mg PO DAILY cinnamon bark [Cinnamon] 500 mg Capsule 500 mg PO HS clopidogrel [Plavix] 75 mg Tablet 75 mg PO DAILY 30 Days Qty: 30 6RF aspirin 81 mg Tablet,Chewable 81 mg PO DAILY 30 Days Qty: 30 6RF gabapentin 600 mg tablet 600 mg PO HS Patient Comments: TAKE 1 TABLET BY MOUTH ONCE DAILY AT BEDTIME FOR NEUROPATHY FOR 90 DAYS insulin glargine U-300 conc [Toujeo SoloStar U-300 Insulin] 300 unit/mL (1.5 mL) insulin pen 27 unit SQ DAILY atorvastatin 20 mg tablet 20 mg PO HS Patient Comments: TAKE 1 TABLET BY MOUTH AT BEDTIME NIGHTLY lisinopril 20 mg tablet 20 mg PO DAILY Problem Reconciliation Problems Reviewed?: Yes Patient Discharge Instructions ACTIVITY: Continue current activity, Ambulate as tolerated and No heavy lifting DIET: continue same diet Patient Instructions: Cardiac Catheterization, DI for Peripheral Vascular (Arterial) Disease, Surgical Site Infection, DI for Moderate Sedation Print Language: Azerbaijani Providers Primary Care Provider: Ricky Lacey Admit Provider: Kunal Velazquez Attending Provider: Kunal Velazquez
--- NOTE | 2025-01-15 14:09 | SW/DCPLANNER ---
Spoke with patient's daughter on the phone. Patient's daughter stated that she is doing good but having some leg pain. Patient's daughter stated that she is aware of her upcoming appointments. Patient's daughter stated that she was able to get her new medicine picked up from the pharmacy. Patient's daughter stated that she has no concerns or questions at this time. Aston Harvey
== END 2025-01-14 11:32 | disposition home or self-care (01) ==
LOC: 2ND 15:10
PROVIDERS: Internal Medicine; Admitting Provider Student in an Organized Health Care Education/Training Program; PCP Internal Medicine; Visit Provider Student in an Organized Health Care Education/Training Program
DX: E11.51 Type 2 diabetes mellitus with diabetic peripheral angiopathy without gangrene (principal); I70.203 Unspecified atherosclerosis of native arteries of extremities, bilateral legs; I10 Essential (primary) hypertension; Z98.890 Other specified postprocedural states; E87.6 Hypokalemia; E83.42 Hypomagnesemia; G30.9 Alzheimer's disease, unspecified; F02.80 Dementia in other diseases classified elsewhere, unspecified severity, without behavioral disturbance, psychotic disturbance, mood disturbance, and anxiety; Z79.3 Long term (current) use of hormonal contraceptives; Z79.84 Long term (current) use of oral hypoglycemic drugs; Z79.02 Long term (current) use of antithrombotics/antiplatelets; Z79.82 Long term (current) use of aspirin; Z79.4 Long term (current) use of insulin; Z79.899 Other long term (current) drug therapy; Z82.49 Family history of ischemic heart disease and other diseases of the circulatory system
CPT/HCPCS: 36200; 80048; 80053; 80061; 82962; 83735; 85025; 93926; 99152; C1725; C1769; C1894; G0378; J1200; J1644; J1650; J2003; J3010; J3475; J7040; Q9966

== ENCOUNTER 2025-01-19 15:02 | Outpatient (CLI) | payer MEDICARE, SELFPAY ==
[2025-01-19 18:55] LABS: Anion Gap 15.2 mEq/L (5-15); Blood Urea Nitrogen 12 mg/dl (7-17); Calcium 9.2 mg/dl (8.4-10.2); Carbon Dioxide 25 mmol/L (22.0-30.0); Chloride 95 mmol/L (98-107); Creatinine,Serum 0.70 mg/dl (0.52-1.04); Estimated Glomerular Filt Rate 79 ml/min (>60); GFR (African American) 96 ML/MIN (>60); Glucose 322 mg/dl (74-100); Magnesium 1.9 mg/dl (1.6-2.3); Potassium 5.2 mmoL/L (3.5-5.1); Sodium 130 mmol/L (136-145)
--- OUTSIDE RECORDS SUMMARY | 2025-01-20 12:27 | XMS_ITS | Clinical Summary ---
Author Organization [facility] Address [address] [place] [address] Care Team Providers Care Gynecology Teacher Name Role Phone Unavailable Primary Care Provider [...]
== END 2025-01-19 23:59 ==
LOC: LAB.DROPOF 01-20 12:25
PROVIDERS: PCP Internal Medicine; Visit Provider Internal Medicine
DX: E87.6 Hypokalemia (principal); E83.42 Hypomagnesemia
CPT/HCPCS: 80048; 83735

== ENCOUNTER 2025-02-24 13:20 | Outpatient (CLI) | payer MEDICARE, SELFPAY ==
--- OUTSIDE RECORDS SUMMARY | 2025-02-24 13:25 | XMS_ITS | Clinical Summary ---
Author Organization [facility] Address [address] [place] [address] Care Team Providers Care Grocery Manager Name Role Phone Unavailable Primary Care Provider [...]
[2025-02-24 13:57] LABS: Hemoglobin A1C 9.5 % (4.0-6.0)
[2025-02-24 14:04] LABS: Anion Gap 10.0 mEq/L (5-15); Blood Urea Nitrogen 9 mg/dl (7-17); Carbon Dioxide 26 mmol/L (22.0-30.0); Chloride 91 mmol/L (98-107); Creatinine,Serum 0.60 mg/dl (0.52-1.04); Estimated Glomerular Filt Rate 95 ml/min (>60); GFR (African American) 114 ML/MIN (>60); Potassium 4.0 mmoL/L (3.5-5.1); Sodium 123 mmol/L (136-145)
[2025-02-24 18:40] LABS: Calcium 9.1 mg/dl (8.4-10.2); Glucose 352 mg/dl (74-100)
== END 2025-02-24 23:59 | disposition home or self-care (01) ==
LOC: LAB.DROPOF 13:21
PROVIDERS: PCP Internal Medicine; Visit Provider Internal Medicine
DX: E11.59 Type 2 diabetes mellitus with other circulatory complications (principal); E11.42 Type 2 diabetes mellitus with diabetic polyneuropathy; E87.6 Hypokalemia; E87.1 Hypo-osmolality and hyponatremia
CPT/HCPCS: 80048; 83036

== ENCOUNTER 2025-03-04 14:15 | Outpatient (CLI) | payer MEDICARE, SELFPAY ==
[2025-03-04 17:13] LABS: Chloride 91 mmol/L (98-107); Potassium 4.2 mmoL/L (3.5-5.1); Sodium 129 mmol/L (136-145)
[2025-03-04 17:16] LABS: Anion Gap 15.2 mEq/L (5-15); Blood Urea Nitrogen 11 mg/dl (7-17); Calcium 9.0 mg/dl (8.4-10.2); Carbon Dioxide 27 mmol/L (22.0-30.0); Creatinine,Serum 0.70 mg/dl (0.52-1.04); Estimated Glomerular Filt Rate 79 ml/min (>60); GFR (African American) 96 ML/MIN (>60)
[2025-03-04 17:22] LABS: Glucose 486 mg/dl (74-100)
== END 2025-03-04 23:59 | disposition home or self-care (01) ==
LOC: LAB.DROPOF 03-05 13:58
PROVIDERS: PCP Internal Medicine; Visit Provider Internal Medicine
DX: E87.1 Hypo-osmolality and hyponatremia (principal); I10 Essential (primary) hypertension; E11.59 Type 2 diabetes mellitus with other circulatory complications
CPT/HCPCS: 80048